=== PATIENT | female | born 1985 | race Two or more races ===

== ENCOUNTER 2023-03-29 09:58 | Outpatient (AMB) | payer OTHER, SELFPAY ==
--- NOTE | 2023-03-29 10:08 | HO.NEPHOV_ITS ---
HPI HPI Comments History of Present Illness Details I had the privilege of seeing Stephanie in follow-up of history proteinuria on a backdrop of lupus erythematosus. She is on mycophenolate. She has not been getting any cutaneous lesions now. She denies any urinary infections, fever, frothy urine, hematuria. She is not taking any excessive nonsteroidal inflammatories. She tries to maintain good hydration. She has no pedal edema. Her blood pressure has been at goal. [facility] Medical History (Updated 04/11/23 @ 21:56 by Merrick Meza MD) Lupus (systemic lupus erythematosus) Surgical History (Updated 03/29/23 @ 10:15 by Hillary De MA) History of tubal ligation History of surgery on lower extremity History of thyroid surgery Family History (Updated 03/29/23 @ 10:16 by Hillary De MA) Mother Diabetes Brother Diabetes Social History (Updated 03/29/23 @ 10:15 by Hillary De MA) Alcohol intake: never Patient Tobacco Use Status: Former Tobacco user Vital Signs 03/29/23 10:10 Height 5 ft 5 in Weight 199 lb BMI 33.1 BP 100/60 Blood Pressure Location Lt brachial Position Sitting Pulse 64 Pulse Source Pulse Oximeter Physical Exam Vital Signs: Last Vital Signs Pulse 64 03/29/23 10:10 BP 100/60 03/29/23 10:10 BMI result Body Mass Index 33.1 Const General: comfortable and no acute distress Orientation/consciousness: patient oriented x3 HEENT Head: Yes normocephalic Mouth: Normal oral and palatal mucosa present Eyes EOM: EOMs intact bilaterally Neck Neck: Yes supple Resp Auscultation: clear to auscultation bilaterally Cardio Jugular venous distension: no JVD Rate: regular rate GI Palpation (GI): Soft to palpation Auscultation: normal bowel sounds General: Yes no CVA tenderness Back/Spine/Pelvis Back: no CVA tenderness Skin General skin exam: no rashes or lesions noted Neuro General: patient oriented x3 and moves all extremities Extrem General: Yes no pedal edema Assessment & Plan Assessment & Plan (1) Lupus (systemic lupus erythematosus): Code(s): M32.9 - Systemic lupus erythematosus, unspecified Qualifiers: Systemic lupus erythematosus type: other Systemic lupus erythematosus organ involvement: other Qualified Code(s): M32.19 - Other organ or system involvement in systemic lupus erythematosus Zuleyka Brown has lupus and has been on CellCept. Her cutaneous lesions are gone now. 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 She does not have any edema or frothy urine. Her blood pressure is at goal. Her renal functions are stable. I ordered urine protein, complement level as well as anti DNA antibody. If she has protein and I will consider doing a renal biopsy and initiate her on SHAYAN- inhibitor. She has family history of lupus. I did not make any medication changes today. All questions were answered. Follow-up appointment given. Orders: Orders Complement C4 03/29/23 M32.9 - Systemic lupus erythematosus, unspecified Blood Urea Nitrogen 03/29/23 M32.9 - Systemic lupus erythematosus, unspecified Calcium 03/29/23 M32.9 - Systemic lupus erythematosus, unspecified UA and rflx microscopic 03/29/23 M32.9 - Systemic lupus erythematosus, unspecified Complement C3 03/29/23 M32.9 - Systemic lupus erythematosus, unspecified Anti DNA DS Antibody 03/29/23 M32.9 - Systemic lupus erythematosus, unspecified Electrolytes 03/29/23 M32.9 - Systemic lupus erythematosus, unspecified Creatinine 03/29/23 M32.9 - Systemic lupus erythematosus, unspecified Protein Creatinine Ratio, Ur 03/29/23 M32.9 - Systemic lupus erythematosus, unspecified Referrals Rheumatology Referral M32.9 - Systemic lupus erythematosus, unspecified Coding Level of Care Code Est Pt Level 3 (54963) Diagnoses Other systemic lupus erythematosus with other organ involvement M32.19 Systemic lupus erythematosus type: other Systemic lupus erythematosus organ involvement: other Results Reviewed Nephrology Results: Sodium 139 mmol/L (135-145) 03/29/23 Potassium 3.9 mmol/L (3.3-5.1) 03/29/23 Chloride 108 mmol/L (96-108) 03/29/23 Carbon Dioxide 24 mmol/L (22-29) 03/29/23 BUN 11 mg/dL (9-16) 03/29/23 Creatinine 0.73 mg/dL (0.5-1.4) 03/29/23 Calcium 9.3 mg/dL (8.4-10.2) 03/29/23 Urine Protein Negative mg/dL (Neg-Trace) 03/29/23 Urine Creatinine 113.99 mg/dL 03/29/23 Protein/Creatinin Ratio TNP 03/29/23
[2023-03-29 10:10] VITALS: BP 100/60; PULSE 64; BMI 33.1
== END 2023-03-29 10:46 | disposition home or self-care (01) ==
PROVIDERS: PCP Student in an Organized Health Care Education/Training Program; Visit Provider Internal Medicine Nephrology
DX: M32.19 Other organ or system involvement in systemic lupus erythematosus (principal)
CPT/HCPCS: 99213

== ENCOUNTER 2023-03-29 09:58 | Outpatient (REF) | payer OTHER, SELFPAY ==
[2023-03-29 12:52] LABS: Appearance Urine Clear; Color Urine Yellow; Glucose Urine UA Negative (Negative); Leukocyte Esterase Urine Negative (Negative); Nitrite Urine Negative (Negative); Specific Gravity - Urine 1.025 (1.005-1.025); Urine Blood Negative (Negative); Urine Ketones Negative (Negative); Urine Protein Negative (Neg-Trace)
[2023-03-29 13:36] LABS: Anion Gap 11 (12-20); Blood Urea Nitrogen 11 mg/dL (9-16); Calcium 9.3 mg/dL (8.4-10.2); Carbon Dioxide 24 mmol/L (22-29); Chloride 108 mmol/L (96-108); Estimated Glomerular Filt Rate > 60; Potassium 3.9 mmol/L (3.3-5.1); Sodium 139 mmol/L (135-145)
[2023-03-29 13:40] LABS: Creatinine Urine 113.99 mg/dL; Total Protein Urine Random < 7 mg/dL (<12)
[2023-04-01 12:24] LABS: Anti DNA DS Antibody 21 IU/mL
[2023-04-02 01:43] LABS: Complement C3 131 mg/dL (83-193)
== END 2023-03-29 09:59 | disposition home or self-care (01) ==
LOC: HO.HKASLDS 09:58
PROVIDERS: PCP Student in an Organized Health Care Education/Training Program; Visit Provider Internal Medicine Nephrology
DX: M32.19 Other organ or system involvement in systemic lupus erythematosus (principal); R80.9 Proteinuria, unspecified; Z79.899 Other long term (current) drug therapy
CPT/HCPCS: 36415; 80051; 81003; 82310; 82565; 82570; 84156; 84520; 86160; 86225; 99212

== ENCOUNTER 2023-04-29 10:48 | Outpatient (AMB) | payer OTHER, SELFPAY ==
--- NOTE | 2023-04-29 10:49 | MHC.OFFVIS ---
Intake Vital Signs 04/29/23 10:50 Height 5 ft 5 in Weight 199 lb 4.766 oz BMI 33.2 BP 100/70 Blood Pressure Location Lt brachial Position Sitting Pulse 65 Pulse Source Pulse Oximeter Temp 97.7 F Temp Source Skin Pulse Oximetry (%) 98 Oxygen Delivery Method Room Air Intake Visit Reasons: Systemic lupus erythematosus Intake Note: New patient, referred to us by Nephrology, presents today for +NIKKI, SLE, and fibromyalgia. Formerly seeing ATC, Dr. Scott. Last seen around December. Last eye exam March,. Personal Lines Sales Rep Required: Yes Personal Lines Sales Rep Language: Post Commander Name: Gurwinder [id number] Information Interpreted: clinical only Accompanied by: Self / Same As Patient Allergies No Known Allergies Allergy (Verified 04/29/23 10:58) HPI HPI Comments History of Present Illness Details Ms. Brown, 38 yoF referred to our office for management of SLE. She was being seen at [facility] - last seen 02/2023. She is currently on Cellcept and Hydroxychloroquine, Lyrica (By PCP) and Folic Acid. She sees Nephrology for history of proteinuria on a backdrop of lupus erythematosus. She is on mycophenolate. She has not been getting any cutaneous lesions now. She denies any urinary infections, fever, frothy urine, hematuria. She is not taking any excessive nonsteroidal inflammatories. She tries to maintain good hydration. She has no pedal edema. Diagnosed with Lupus , biopsy-proven, 3 years ago after seeing the clinical product specialist for hair loss and lesions to her face and scalp. She received scalp injections Face lesions related to lupus. Sun exposure - January, get rash on skin of feet and arms. Tries to avoid sun - because feet gets swollen; when lupus was not control/first diagnosed she had mouth ulcers, hair loss, biopsy of scalp, butterfly rash. For the last 3 years no evidence of lupus activity since starting CellCept and hydroxychloroquine.. Other issues include: She was diagnosed with fibromyalgia in [place] and receives Lyrica for the last 10 years. She sees a psychiatrist takes medication such as clonazepam, escitalopram, trazodone and zolpidem Neck Pain, Left Shoulder - sometimes feels swollen. She has received 2 trigger point steroid injection left trapezius - not effective per patient Left side/flank Pain, tenderness in pain for years MRI Neck 2018 - shows Arthritis. Ankle, Plantar, Left Knee pain - Left knee broke tibia - plates and screws (2021) She is currently followed by Nephrology, has seen pulmonology - last seen October 2022 chest x-ray done - denies SOB, Pleuritis; Cardiology - for ekg last see 2019 - did not follow-up as scheduled - denies carditis. Family history of lupus [facility] Medical History (Updated 04[facility]29/23 @ 13:[facility] Long-term use of immunosuppressant medication Fibromyalgia Lupus (systemic lupus erythematosus) Surgical History History of tubal ligation History of surgery on lower extremity History of thyroid surgery Family History (Updated 04/29/23 @ 10:59 by MAX Aguilera) Mother Diabetes Lupus Brother Diabetes Social History (Updated 04/29/23 @ 10:59 by MAX Aguilera) Household Members: Significant Other and Children Alcohol intake: never Patient Tobacco Use Status: Former Tobacco user Current occupational status: disabled Female Reproductive History Menstrual Total pregnancies: 3 Review of Systems Const All systems reviewed & are unremarkable except as noted in HPI and below Physical Exam Vital Signs: Last Vital Signs Temp 97.7 F 04/29/23 10:50 Pulse 65 04/29/23 10:50 BP 100/70 04/29/23 10:50 Pulse Ox 98 04/29/23 10:50 Oxygen Delivery Method Room Air 04/29/23 10:50 BMI result Body Mass Index 33.2 APPEARANCE: Patient in no acute distress EYES no redness, pupils equal and reactive to light, eyelids normal EARS:? External ear normal, canal clear and tympanic membrane normal. NOSE/SINUS:? Airflow through both nares, no nasal discharge, no bleeding THROAT:? Oral mucosa moist, no ulcerations NECK:? No thyromegaly or masses, no adenopathy, trachea midline. HEART:? Regular rhythm, S1-S2 heard, no murmurs, rubs or gallops. LUNG:? Clear to percussion and auscultation ABD:? Normal bowel sounds, no organomegaly, masses or tenderness. EXTREMITIES:? No edema, no calf tenderness, normal peripheral pulses. NEURO:? Oriented and alert x3.? No focal weakness.? Reflexes symmetric.? Gait normal. SKIN:? There are no skin lesions evident. No objective signs of Raynaud's phenomenon. JOINT EXAM: ?? Cervical Spine:.? Full range of motion without pain; no tenderness. Thoracic Spine:.? No scoliosis.? No tenderness on palpation. Lumbar Spine:.? Alignment normal.? Full range of motion without pain, no tenderness. Chest Wall:.? No tenderness, swelling, increased warmth or erythema. Hands:.? Normal pain-free range of motion without tenderness, swelling, increased warmth or erythema. 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 Wrists:.? Normal pain-free range of motion without tenderness, swelling, increased warmth or erythema. Elbows:. Normal pain-free range of motion without tenderness, swelling, increased warmth or erythema. Shoulders:.?? Full range of motion without pain. No tenderness, weakness, swelling, increased warmth or erythema. Tenderness across shoulders and neck Hips:.? Full range of motion without pain. Hip bursa:.? tenderness L>R Knees:.?? Normal pain-free range of motion without tenderness, swelling, increased warmth or erythema.? There is no effusion or crepitation Ankles:.? Normal pain-free range of motion without tenderness, swelling, increased warmth or erythema. Feet:.? Normal pain-free range of motion without tenderness, swelling, increased warmth or erythema. Tender points:? tenderness to digital palpation at the occiput, trapezius, lateral epicondyle, knees, greater trochanter and gluteal area bilaterally. L>R ? Assessment & Plan Assessment & Plan (1) Lupus (systemic lupus erythematosus): Comment: On Cellcept and HCQ over 10 years Code(s): M32.9 - Systemic lupus erythematosus, unspecified Qualifiers: Systemic lupus erythematosus organ involvement: other Systemic lupus erythematosus type: other Qualified Code(s): M32.19 - Other organ or system involvement in systemic lupus erythematosus (2) Fibromyalgia: Code(s): M79.7 - Fibromyalgia (3) Long-term use of immunosuppressant medication: Code(s): Z79.60 - snf (current) use of unspecified immunomodulators and immunosuppressants Plan #SLE: Ms. Brown 38-year-old female here for the management of her lupus and fibromyalgia. It appears her lupus is currently well managed on CellCept and hydroxychloroquine therefore it is appropriate to continue with these medications. I will also obtain records from past learning developer to will see what her serology was for diagnosis. For next visit will check labs and urine to assess for SLE activity. Patient will continue to follow up with Nephrology. She had mild proteinuria which seem to have resolved since 03/29/2023. Will send for records from Sign Shop Supervisor and former Fruit Sorter. #Fibromyalgia: Patient has multiple tender points on exam. I Discussed at length with patient the concept of fibromyalgia. She will continue to take Lyrica that has helped with overall body pain. She will continue to meet with her psychiatrist. Patient also says she likes to stay active. I encouraged patient to make sure she is getting adequate sleep and to seek ways to manage stress effectively. We discussed that her pain levels will very but it will feel like the pain is always there. We discussed light activities that the patient can do. #Fpc Use of Immunosuppressant: I will obtain labs to check CBC and liver enzymes for next visit. She recently saw the pianos and organs salesperson March 2023 with no concerns for her eyes on hydroxychloroquine. We discussed the side effects of CellCept and hydroxychloroquine to include but not limited to liver toxicity, blood dyscrasias and risk to and fetus. Patient will maintain control methods. I have spent 50 minutes reviewing chart and historical data, evaluating patient, and documenting. Orders: Orders Complement C3 4 Months M3. - Systemic lupus erythematosus, unspecified UA w Microscopic 4 Months . - Systemic lupus erythematosus, unspecified Complete Blood Count Auto Diff 4 Months . - Systemic lupus erythematosus, unspecified, Z79.899 - Other senior care (current) drug therapy Complement C4 4 Months M32. - Systemic lupus erythematosus, unspecified C Reactive Protein 4 Months M32.9 - Systemic lupus erythematosus, unspecified Erythrocyte Sedimentation Rate 4 Months M32.9 - Systemic lupus erythematosus, unspecified Comprehensive Met. Panel 4 Months M32.9 - Systemic lupus erythematosus, unspecified Medications: New pregabalin 150 mg PO BID 90 caps 1RF Coding Level of Care Code New Pt Level 4 (92004) Diagnoses Other systemic lupus erythematosus with other organ involvement M32.19 Systemic lupus erythematosus organ involvement: other Systemic lupus erythematosus type: other Fibromyalgia M79.7 Long-term use of immunosuppressant medication Z79.60
[2023-04-29 10:50] VITALS: BP 100/70; PULSE 65; TEMP 36.5; O2SAT 98; BMI 33.2
== END 2023-04-29 12:05 | disposition home or self-care (01) ==
PROVIDERS: PCP Student in an Organized Health Care Education/Training Program; Visit Provider Nurse Practitioner Family
DX: M32.19 Other organ or system involvement in systemic lupus erythematosus (principal); M79.7 Fibromyalgia; Z79.60 Long term (current) use of unspecified immunomodulators and immunosuppressants
CPT/HCPCS: 99204

== ENCOUNTER → 2023-04-29 10:48 | Outpatient (BNVA) | payer OTHER, SELFPAY | PROVIDERS: PCP Student in an Organized Health Care Education/Training Program; Visit Provider Nurse Practitioner Family | DX: M32.19 Other organ or system involvement in systemic lupus erythematosus (principal); M79.7 Fibromyalgia; Z79.60 Long term (current) use of unspecified immunomodulators and immunosuppressants | CPT/HCPCS: 99202 ==

== ENCOUNTER 2023-05-17 09:36 | Outpatient (AMB) | payer OTHER, SELFPAY ==
--- NOTE | 2023-05-17 09:50 | HO.NEPHOV ---
HPI HPI Comments History of Present Illness Details had the privilege of seeing Stephanie in follow-up of history proteinuria on a backdrop of lupus erythematosus. She is on mycophenolate. She has not been getting any cutaneous lesions now. She denies any urinary infections, fever, frothy urine, hematuria. She is not taking any excessive nonsteroidal inflammatories. She tries to maintain good hydration. She has no pedal edema. Her blood pressure has been at goal. [facility] Medical History (Updated 04/29/23 @ 13:37 by [facility] Long-term use of immunosuppressant medication Fibromyalgia Lupus (systemic lupus erythematosus) Surgical History History of tubal ligation History of surgery on lower extremity History of thyroid surgery Family History Mother Diabetes Lupus Brother Diabetes Social History Household Members: Significant Other and Children Alcohol intake: never Patient Tobacco Use Status: Former Tobacco user Current occupational status: disabled Vital Signs 05/17/23 09:51 Height 5 ft 5 in Weight 194 lb 4 oz BMI 32.3 BP 100/70 Blood Pressure Location Lt brachial Position Sitting Pulse 54 Pulse Source Pulse Oximeter Pulse Oximetry (%) 94 Oxygen Delivery Method Room Air Physical Exam Vital Signs: Last Vital Signs Pulse 54 05/17/23 09:51 BP 100/70 05/17/23 09:51 Pulse Ox 94 05/17/23 09:51 Oxygen Delivery Method Room Air 05/17/23 09:51 BMI result Body Mass Index 32.3 Const General: comfortable and no acute distress Orientation/consciousness: patient oriented x3 HEENT Head: Yes normocephalic Mouth: Normal oral and palatal mucosa present Eyes EOM: EOMs intact bilaterally Neck Neck: Yes supple Resp Auscultation: clear to auscultation bilaterally Cardio Jugular venous distension: no JVD Rate: regular rate GI Palpation (GI): Soft to palpation Auscultation: normal bowel sounds General: Yes no CVA tenderness Back/Spine/Pelvis Back: no CVA tenderness Skin General skin exam: no rashes or lesions noted Neuro General: patient oriented x3 and moves all extremities Extrem General: Yes no pedal edema Assessment & Plan Assessment & Plan (1) Lupus (systemic lupus erythematosus): Comment: On Cellcept and HCQ over 10 years Code(s): M32.9 - Systemic lupus erythematosus, unspecified Qualifiers: Systemic lupus erythematosus type: other Systemic lupus erythematosus organ involvement: other Qualified Code(s): M32.19 - Other organ or system involvement in systemic lupus erythematosus (2) Long-term use of immunosuppressant medication: Code(s): Z79.60 - [facility] (current) use of unspecified immunomodulators and immunosuppressants Zuleyka Brown has lupus and has been on CellCept. Her cutaneous lesions are gone now. She does not have any edema or frothy urine. Her blood pressure is at goal. Her renal functions are stable. Her urine protein, complement level were normal. Her anti DNA antibody was 21. If she develop proteinuria, I will consider doing a renal biopsy and initiate her on SHAYAN-inhibitor. She has family history of lupus. I did not make any medication changes today. All questions were answered. Follow-up appointment given Coding Level of Care Code Est Pt Level 3 (05262) Diagnoses Other systemic lupus erythematosus with other organ involvement M32.19 Systemic lupus erythematosus type: other Systemic lupus erythematosus organ involvement: other Long-term use of immunosuppressant medication Z79.60 Results Reviewed Nephrology Results: Sodium 139 mmol/L (135-145) 03/29/23 Potassium 3.9 mmol/L (3.3-5.1) 03/29/23 Chloride 108 mmol/L (96-108) 03/29/23 Carbon Dioxide 24 mmol/L (22-29) 03/29/23 BUN 11 mg/dL (9-16) 03/29/23 Creatinine 0.73 mg/dL (0.5-1.4) 03/29/23 Calcium 9.3 mg/dL (8.4-10.2) 03/29/23 Urine Protein Negative mg/dL (Neg-Trace) 03/29/23 Urine Creatinine 113.99 mg/dL 03/29/23 Protein/Creatinin Ratio TNP 03/29/23
[2023-05-17 09:51] VITALS: BP 100/70; PULSE 54; O2SAT 94; BMI 32.3
== END 2023-05-17 10:12 | disposition home or self-care (01) ==
PROVIDERS: PCP Student in an Organized Health Care Education/Training Program; Visit Provider Internal Medicine Nephrology
DX: M32.19 Other organ or system involvement in systemic lupus erythematosus (principal); Z79.60 Long term (current) use of unspecified immunomodulators and immunosuppressants
CPT/HCPCS: 99213

== ENCOUNTER → 2023-05-17 09:36 | Outpatient (BNVA) | payer OTHER, SELFPAY | PROVIDERS: PCP Student in an Organized Health Care Education/Training Program; Visit Provider Internal Medicine Nephrology | DX: M32.19 Other organ or system involvement in systemic lupus erythematosus (principal); Z79.60 Long term (current) use of unspecified immunomodulators and immunosuppressants | CPT/HCPCS: 99212 ==

== ENCOUNTER 2023-08-29 12:11 | Outpatient (REF) | payer OTHER, SELFPAY ==
[2023-08-29 12:48] LABS: MANUAL DIFF FLAG NO
[2023-08-29 14:24] LABS: Basophils Absolute Auto 0.1 X10*3/uL (0.0-0.2); Eosinophils Absolute Auto 0.1 X10*3/uL (0.0-0.4); Eosinophils Percent Auto 1.8 % (0-4); Hematocrit 42.5 % (37.0-47.0); Hemoglobin 13.8 g/dl (12.0-16.0); Imm Gran Abs Auto 0.03 X10*3/uL (0.00-0.03); Imm Gran Pct Auto 0.4 % (0.0-0.4); Lymphocytes Absolute Auto 2.7 X10*3/uL (1.2-4.9); Mean Corpuscular HGB Conc 32.5 g/dl (31.0-35.0); Mean Corpuscular Hemoglobin 27.7 pg (27.0-33.0); Mean Corpuscular Volume 85.2 fL (80.0-98.0); Mean Platelet Volume 11.1 fL (9.4-12.3); Monocytes Absolute Auto 0.8 X10*3/uL (0.1-1.2); Neutrophils Absolute Auto 3.2 x10*3/uL (2.0-8.3); Neutrophils Percent Auto 46.8 % (45-73); Platelet Count 261 X10*3/uL (160-400); Red Blood Count 4.99 X10*6/uL (4.20-5.50); Red Cell Distribution Width 13.2 % (11.0-16.0); White Blood Count 6.8 X10*3/uL (4.8-10.8)
[2023-08-29 14:25] LABS: Appearance Urine Cloudy; Color Urine Yellow; Glucose Urine UA Negative (Negative); Leukocyte Esterase Urine Negative (Negative); Nitrite Urine Negative (Negative); PH 6.5 (5.0-9.0); UMIC TRIGGER UA YES; Urine Blood Trace (Negative); Urine Ketones Negative (Negative); Urine Protein Negative (Neg-Trace)
[2023-08-29 14:30] LABS: Bacteria Urine 1+ (None Seen); Hyaline Casts Urine 0-2 /LPF (0-2); RBC Urine 0-2 /HPF (0-2); WBC Urine 0-5 /HPF (0-5)
[2023-08-29 14:54] LABS: Alanine Aminotransferase 14 U/L (0-31); Albumin Level 4.1 g/dL (3.5-5.0); Alkaline Phosphatase 66 U/L (39-117); Anion Gap 12 (12-20); Aspartate Amino Transferase 19 U/L (5-31); Bilirubin Total 0.2 mg/dL (0.0-1.0); Blood Urea Nitrogen 11 mg/dL (9-16); C Reactive Protein 0.47 mg/dL (< or = 0.50); Calcium 9.6 mg/dL (8.4-10.2); Carbon Dioxide 25 mmol/L (22-29); Chloride 107 mmol/L (96-108); Estimated Glomerular Filt Rate > 60; Glucose Random 75 mg/dL (60-115); Potassium 3.7 mmol/L (3.3-5.1); Sodium 140 mmol/L (135-145); Total Protein 7.8 g/dL (6.5-8.0)
[2023-08-29 15:18] LABS: Erythrocyte Sedimentation Rate 14 MM/HR (0-20)
[2023-08-31 13:28] LABS: Complement C3 86 mg/dL (83-193)
== END 2023-08-29 12:12 | disposition home or self-care (01) ==
LOC: HO.LAB 12:11
PROVIDERS: PCP Student in an Organized Health Care Education/Training Program; Visit Provider Nurse Practitioner Family
DX: M32.9 Systemic lupus erythematosus, unspecified (principal); Z79.899 Other long term (current) drug therapy
CPT/HCPCS: 36415; 80053; 81001; 85025; 85652; 86140; 86160

== ENCOUNTER 2023-09-01 15:29 | Outpatient (AMB) | payer OTHER, SELFPAY ==
--- NOTE | 2023-09-01 15:34 | A.OFFVIS_ITS ---
Vital Signs 09/01/23 15:41 Height 5 ft 5 in Weight 194 lb 14.218 oz BMI 32.4 BP 110/78 Blood Pressure Location Rt brachial Position Sitting Pulse 79 Pulse Source Pulse Oximeter Pulse Oximetry (%) 99 Oxygen Delivery Method Room Air Intake Visit Reasons: SLE/CM Intake Note: Patient last seen 04/29/23, presents today for follow up and test results. Vocational Director Required: No Accompanied by: Self / Same As Patient Allergies No Known Allergies Allergy (Verified 09/01/23 15:40) HPI Comments Details: Ms. Brown, 38 yoF returns for follow-up of SLE and FM. She is currently on Cellcept and Hydroxychloroquine, Lyrica (By PCP) and Folic Acid. She sees Nephrology for history of proteinuria on a backdrop of lupus erythematosus. She remains without cutaneous lesions since last visit; respiratory care technician mouth sores, fevers. She denies any urinary infections, fever, frothy urine, hematuria. She is not taking any excessive nonsteroidal inflammatories. She has stopped that trazadone because she wants to lose weight. Since then she has been told that she is snoring a lot. She does not feel rested when she wakes up in the mornings. Initial [id number]/29/2023: Florence Hudson yoF referred to our office for management of SLE. She was being seen at the [facility] - last seen 02/2023. She is currently on Cellcept and Hydroxychloroquine, Lyrica (By PCP) and Folic Acid. She sees Nephrology for history of proteinuria on a backdrop of lupus erythematosus. She is on mycophenolate. She has not been getting any cutaneous lesions now. She denies any urinary infections, fever, frothy urine, hematuria. She is not takin g any excessive nonsteroidal inflammatories. She tries to maintain good hydration. She has no pedal edema. : Diagnosed with Lupus , biopsy-proven, 3 years ago after seeing the gravure press operator for hair loss and lesions to her face and scalp. She received scalp injections Face lesions related to lupus. Sun exposure - January, get rash on skin of feet and arms. Tries to avoid sun - because feet gets swollen; when lupus was not control/first diagnosed she had mouth ulcers, hair loss, biopsy of scalp, butterfly rash. For the last 3 years no evidence of lupus activity since starting CellCept and hydroxychloroquine.. Other issues include: She was diagnosed with fibromyalgia in [place] and receives Lyrica for the last 10 years. She sees a psychiatrist takes medication such as clonazepam, escitalopram, trazodone and zolpidem Neck Pain, Left Shoulder - sometimes feels swollen. She has received 2 trigger point steroid injection left trapezius - not effective per patient Left side/flank Pain, tenderness in pain for years MRI Neck 2018 - shows Arthritis. Ankle, Plantar, Left Knee pain - Left knee broke tibia - plates and screws (2021) She is currently followed by Nephrology, has seen pulmonology - last seen October 2022 chest x-ray done - denies SOB, Pleuritis; Cardiology - for ekg last see 2019 - did not follow-up as scheduled - denies carditis. Family history of lupus [facility] Medical History (Updated 04/29/23 @ 13:37 by ANITA Osullivan-) Long-term use of immunosuppressant medication Fibromyalgia Lupus (systemic lupus erythematosus) Surgical History History of tubal ligation History of surgery on lower extremity History of thyroid surgery Family History Mother Diabetes Lupus Brother Diabetes Social History Household Members: Significant Other and Children Alcohol intake: never Patient Tobacco Use Status: Former Tobacco user Current occupational status: disabled Review of Systems Const All systems reviewed & are unremarkable except as noted in HPI and below Physical Exam Vital Signs: Last Vital Signs Pulse 79 09/01/23 15:41 BP 110/78 09/01/23 15:41 Pulse Ox 99 09/01/23 15:41 Oxygen Delivery Method Room Air 09/01/23 15:41 BMI result Body Mass Index 32.4 APPEARANCE: Patient in no acute distress EYES no redness, eyelids normal EARS:? External ear normal THROAT:? Oral mucosa moist, no ulcerations NECK:? No thyromegaly or masses, no adenopathy, trachea midline. HEART:? Regular rhythm, S1-S2 heard, no murmurs, rubs or gallops. LUNG:? Clear to percussion and auscultation EXTREMITIES:? No edema, no calf tenderness, normal peripheral pulses. NEURO:? Oriented and alert x3.? No focal weakness.? Reflexes symmetric.? Gait normal. SKIN:? There are no skin lesions evident. No objective signs of Raynaud's phenomenon. JOINT EXAM: Hands:.? Normal pain-free range of motion without tenderness, swelling, increased warmth or erythema. Able to make a full fist and has a good vehicle dismantler strength. Wrists:.? Normal pain-free range of motion without tenderness, swelling, increased warmth or erythema. Elbows:. Normal pain-free range of motion without tenderness, swelling, increased warmth or erythema. Shoulders:.?? Full range of motion without pain. No tenderness, weakness, swelling, increased warmth or erythema. Tenderness across shoulders and neck Hips:.? Full range of motion without pain. Hip bursa:.? tenderness L>R Knees:.?? Normal pain-free range of motion without tenderness, swelling, increased warmth or erythema.? There is no effusion or crepitation Ankles:.? Normal pain-free range of motion without tenderness, swelling, increased warmth or erythema. Feet:.? Normal pain-free range of motion without tenderness, swelling, increased warmth or erythema. Tender points:? tenderness to digital palpation at the occiput, trapezius, lateral epicondyle, knees, greater trochanter and gluteal area bilaterally. L>R ? Results Reviewed Results Reviewed: Laboratory Tests 08/29/23 08/29/23 12:17 12:47 WBC 6.8 RBC 4.99 Hgb 13.8 Hct 42.5 Creatinine 0.75 C-Reactive Protein 0.47 Urine Blood Trace H Assessment & Plan Assessment & Plan (1) Lupus (systemic lupus erythematosus): Comment: On Cellcept and HCQ over 10 years Code(s): M32.9 - Systemic lupus erythematosus, unspecified Category: Medical Qualifiers: Systemic lupus erythematosus organ involvement: other Systemic lupus erythematosus type: other Qualified Code(s): M32.19 - Other organ or system involvement in systemic lupus erythematosus (2) Fibromyalgia: Code(s): M79.7 - Fibromyalgia Category: Medical (3) Long-term use of immunosuppressant medication: Code(s): Z79.60 - chemical plant technical director (current) use of unspecified immunomodulators and immunosuppressants Category: Medical Plan #SLE: Ms. Brown 38-year-old female here for follow-up of her lupus and fibromyalgia. It appears her lupus is currently well managed on CellCept 500mg BID and hydroxychloroquine 200 mg BID therefore it is appropriate to continue with these medications. Records from past accounting director was reviewed without adverse findings that would change the course of treatment. Her current labs were not significant for lupus activity C4 was borderline on the low end at 14(15). For next visit will check labs and urine to assess for SLE activity. Patient will continue to follow up with Nephrology. She had mild proteinuria which seem to have resolved since 03/29/2023. #Fibromyalgia: Patient has multiple tender points on exam. I Discussed at length with patient the concept of fibromyalgia. She will continue to take Lyrica that has helped with overall body pain. She will continue to meet with her psychiatrist. Patient also says she likes to stay active. I encouraged patient to make sure she is getting adequate sleep and to seek ways to manage stress effectively. We discussed that her pain levels will very but it will feel like the pain is always there. We discussed light activities that the patient can do. #Desk Reporter Use of Immunosuppressant: I will obtain labs to check CBC and liver enzymes, lupus lab monitoring for next visit. She recently saw the emulsion coater March 2023 with no concerns for her eyes on hydroxychloroquine. We discussed the side effects of CellCept and hydroxychloroquine to include but not limited to liver toxicity, blood dyscrasias and risk to and fetus. Patient will maintain control methods. I have spent 20 minutes reviewing chart and historical data, evaluating patient, and documenting. Orders: Orders Complement C4 4 Months Z79.60 - nursing home (current) use of unspecified immunomodulators and immunosuppressants, M32.19 - Other organ or system involvement in systemic lupus erythematosus C Reactive Protein 4 Months Z79.60 - nursing home (current) use of unspecified immunomodulators and immunosuppressants, M32.19 - Other organ or system involvement in systemic lupus erythematosus Complete Blood Count Auto Diff 4 Months Z79.60 - chemical plant technical director (current) use of unspecified immunomodulators and immunosuppressants, M32.19 - Other organ or system involvement in systemic lupus erythematosus UA w Microscopic 4 Months Z79.60 - nursing home (current) use of unspecified immunomodulators and immunosuppressants, M32.19 - Other organ or system involvement in systemic lupus erythematosus Erythrocyte Sedimentation Rate 4 Months Z79.60 - chemical plant technical director (current) use of unspecified immunomodulators and immunosuppressants, M32.19 - Other organ or system involvement in systemic lupus erythematosus Complement C3 4 Months Z79.60 - chemical plant technical director (current) use of unspecified immunomodulators and immunosuppressants, M32.19 - Other organ or system involvement in systemic lupus erythematosus Anti DNA DS Antibody 4 Months Z79.60 - nursing home (current) use of unspecified immunomodulators and immunosuppressants, M32.19 - Other organ or system involvement in systemic lupus erythematosus Protein Creatinine Ratio, Ur 4 Months Z79.60 - nursing home (current) use of unspecified immunomodulators and immunosuppressants, M32.19 - Other organ or system involvement in systemic lupus erythematosus Comprehensive Met. Panel 4 Months Z79.60 - chemical plant technical director (current) use of unspecified immunomodulators and immunosuppressants, M32.19 - Other organ or system involvement in systemic lupus erythematosus Medications: New hydroxychloroquine 200 mg PO BID 180 tabs 1RF M32.19 - Other organ or system involvement in systemic lupus erythematosus folic acid 1 mg PO DAILY 90 tabs 2RF Z79.60 - chemical plant technical director (current) use of unspecified immunomodulators and immunosuppressants Coding Level of Care Code Est Pt Level 4 (91399) Complex EM visit Add On [id number] Diagnoses Other systemic lupus erythematosus with other organ involvement M32.19 Systemic lupus erythematosus organ involvement: other Systemic lupus erythematosus type: other Fibromyalgia M79.7 Long-term use of immunosuppressant medication Z79.60
[2023-09-01 15:41] VITALS: BP 110/78; PULSE 79; O2SAT 99; BMI 32.4
== END 2023-09-01 16:11 | disposition home or self-care (01) ==
PROVIDERS: PCP Student in an Organized Health Care Education/Training Program; Visit Provider Nurse Practitioner Family
DX: M32.19 Other organ or system involvement in systemic lupus erythematosus (principal); M79.7 Fibromyalgia; Z79.60 Long term (current) use of unspecified immunomodulators and immunosuppressants
CPT/HCPCS: 99214; G2211

== ENCOUNTER → 2023-09-01 15:29 | Outpatient (BNVA) | payer OTHER, SELFPAY | PROVIDERS: PCP Student in an Organized Health Care Education/Training Program; Visit Provider Nurse Practitioner Family | DX: M32.19 Other organ or system involvement in systemic lupus erythematosus (principal); M79.7 Fibromyalgia; Z79.60 Long term (current) use of unspecified immunomodulators and immunosuppressants | CPT/HCPCS: 99212 ==

== ENCOUNTER 2023-11-17 14:42 | Outpatient (AMB) | payer OTHER, SELFPAY ==
--- NOTE | 2023-11-17 15:01 | HO.NEPHOV ---
Vital Signs 11/17/23 15:02 Height 5 ft 5 in Weight 198 lb 2 oz BMI 33.0 BP 112/80 Blood Pressure Location Lt brachial Position Sitting Intake Visit Reasons: Lupus/ 6 MO FU/ [facility] Manager Required: No Accompanied by: Self / Same As Patient Allergies No Known Allergies Allergy (Verified 11/17/23 15:04) HPI Comments Details: I had the privilege of seeing Stephanie in follow-up of history proteinuria on a backdrop of lupus erythematosus. She is on mycophenolate. She has not been getting any cutaneous lesions now. She denies any urinary infections, fever, frothy urine, hematuria. She is not taking any excessive nonsteroidal inflammatories. She tries to maintain good hydration. She has no pedal edema. Her blood pressure has been at goal. [facility] Medical History (Updated 04/29/23 @ 13:37 by Kiara Reyez [facility]) Long-term use of immunosuppressant medication Fibromyalgia Lupus (systemic lupus erythematosus) Surgical History History of tubal ligation History of surgery on lower extremity History of thyroid surgery Family History Mother Diabetes Lupus Brother Diabetes Social History Household Members: Significant Other and Children Alcohol intake: never Patient Tobacco Use Status: Former Tobacco user Current occupational status: disabled Review of Systems Const All systems reviewed & are unremarkable except as noted in HPI and below Physical Exam Vital Signs: Last Vital Signs BP 112/80 11/17/23 15:02 BMI result Body Mass Index 33.0 Const General: comfortable and no acute distress Orientation/consciousness: patient oriented x3 HEENT Head: Yes normocephalic Mouth: Normal oral and palatal mucosa present Eyes EOM: EOMs intact bilaterally Neck Neck: Yes supple Resp Auscultation: clear to auscultation bilaterally Cardio Jugular venous distension: no JVD Rate: regular rate GI Palpation (GI): Soft to palpation Auscultation: normal bowel sounds General: Yes no CVA tenderness Back/Spine/Pelvis Back: no CVA tenderness Skin General skin exam: no rashes or lesions noted Neuro General: patient oriented x3 and moves all extremities Extrem General: Yes no pedal edema Results Reviewed Nephrology Results: Hgb 13.8 g/dl (12.0-16.0) 08/29/23 WBC 6.8 X10*3/uL (4.8-10.8) 08/29/23 Plt Count 261 X10*3/uL (160-400) 08/29/23 Sodium 140 mmol/L (135-145) 08/29/23 Potassium 3.7 mmol/L (3.3-5.1) 08/29/23 Chloride 107 mmol/L (96-108) 08/29/23 Carbon Dioxide 25 mmol/L (22-29) 08/29/23 BUN 11 mg/dL (9-16) 08/29/23 Creatinine 0.75 mg/dL (0.5-1.4) 08/29/23 Calcium 9.6 mg/dL (8.4-10.2) 08/29/23 Urine Protein Negative mg/dL (Neg-Trace) 08/29/23 Urine Creatinine 113.99 mg/dL 03/29/23 Protein/Creatinin Ratio TNP 03/29/23 Assessment & Plan Assessment & Plan (1) Lupus (systemic lupus erythematosus): Comment: On Cellcept and HCQ over 10 years Code(s): M32.9 - Systemic lupus erythematosus, unspecified Category: Medical Qualifiers: Systemic lupus erythematosus type: other Systemic lupus erythematosus organ involvement: other Qualified Code(s): M32.19 - Other organ or system involvement in systemic lupus erythematosus (2) Long-term use of immunosuppressant medication: Code(s): Z79.60 - long-term (current) use of unspecified immunomodulators and immunosuppressants Category: Medical Plan Stephanie has lupus and has been on CellCept. Her cutaneous lesions are gone now. She does not have any edema or frothy urine. Her blood pressure is at goal. Her renal functions are stable. Her urine protein, complement level were normal. Her anti DNA antibody was 21. If she develop proteinuria, I will consider doing a renal biopsy and initiate her on SHAYAN-inhibitor. She has family history of lupus ( Mom had lupus-) . I did not make any medication changes today. All questions were answered. Follow-up appointment given Orders: Orders Protein Creatinine Ratio, Ur Today M32.19 - Other organ or system involvement in systemic lupus erythematosus, Z79.60 - remote computer terminal operator (current) use of unspecified immunomodulators and immunosuppressants Coding Level of Care Code Est Pt Level 4 (93875) Diagnoses Other systemic lupus erythematosus with other organ involvement M32.19 Systemic lupus erythematosus type: other Systemic lupus erythematosus organ involvement: other Long-term use of immunosuppressant medication Z79.60
[2023-11-17 15:02] VITALS: BP 112/80; BMI 33.0
== END 2023-11-17 15:34 | disposition home or self-care (01) ==
PROVIDERS: PCP Student in an Organized Health Care Education/Training Program; Visit Provider Internal Medicine Nephrology
DX: M32.19 Other organ or system involvement in systemic lupus erythematosus (principal); Z79.60 Long term (current) use of unspecified immunomodulators and immunosuppressants
CPT/HCPCS: 99214

== ENCOUNTER → 2023-11-17 14:42 | Outpatient (BNVA) | payer OTHER, SELFPAY | PROVIDERS: PCP Student in an Organized Health Care Education/Training Program; Visit Provider Internal Medicine Nephrology | DX: M32.19 Other organ or system involvement in systemic lupus erythematosus (principal); M79.7 Fibromyalgia; R80.9 Proteinuria, unspecified; Z79.60 Long term (current) use of unspecified immunomodulators and immunosuppressants | CPT/HCPCS: 99212 ==

== ENCOUNTER 2023-12-30 09:13 | Outpatient (REF) | payer OTHER, SELFPAY ==
[2023-12-30 09:26] LABS: MANUAL DIFF FLAG NO
[2023-12-30 09:53] LABS: Basophils Absolute Auto 0.1 X10*3/uL (0.0-0.2); Basophils Percent Auto 1.1 % (0-2); Eosinophils Absolute Auto 0.1 X10*3/uL (0.0-0.4); Eosinophils Percent Auto 1.8 % (0-4); Hematocrit 43.9 % (37.0-47.0); Imm Gran Abs Auto 0.02 X10*3/uL (0.00-0.03); Imm Gran Pct Auto 0.5 % (0.0-0.4); Lymphocytes Absolute Auto 1.9 X10*3/uL (1.2-4.9); Mean Corpuscular HGB Conc 31.9 g/dl (31.0-35.0); Mean Corpuscular Hemoglobin 27.4 pg (27.0-33.0); Mean Corpuscular Volume 85.9 fL (80.0-98.0); Mean Platelet Volume 10.2 fL (9.4-12.3); Monocytes Absolute Auto 0.5 X10*3/uL (0.1-1.2); Monocytes Percent Auto 10.8 % (2-11); Neutrophils Absolute Auto 1.9 x10*3/uL (2.0-8.3); Neutrophils Percent Auto 43.8 % (45-73); Platelet Count 245 X10*3/uL (160-400); Red Blood Count 5.11 X10*6/uL (4.20-5.50); Red Cell Distribution Width 13.2 % (11.0-16.0); White Blood Count 4.4 X10*3/uL (4.8-10.8)
[2023-12-30 10:13] LABS: Appearance Urine Clear; Color Urine Yellow; Glucose Urine UA Negative (Negative); Leukocyte Esterase Urine Trace (Negative); Nitrite Urine Negative (Negative); PH 6.5 (5.0-9.0); Specific Gravity - Urine <= 1.005 (1.005-1.025); UMIC TRIGGER UA YES; Urine Blood Large (3+) (Negative); Urine Ketones Negative (Negative); Urine Protein Negative (Neg-Trace)
[2023-12-30 10:33] LABS: Bacteria Urine None Seen (None Seen); Hyaline Casts Urine 0-2 /LPF (0-2); RBC Urine 0-2 /HPF (0-2); WBC Urine 0-5 /HPF (0-5)
[2023-12-30 10:35] LABS: Erythrocyte Sedimentation Rate 12 MM/HR (0-20)
[2023-12-30 11:02] LABS: Alanine Aminotransferase 15 U/L (0-31); Albumin Level 4.1 g/dL (3.5-5.0); Alkaline Phosphatase 64 U/L (39-117); Anion Gap 10 (12-20); Aspartate Amino Transferase 16 U/L (5-31); Bilirubin Total 0.3 mg/dL (0.0-1.0); Blood Urea Nitrogen 9 mg/dL (9-16); C Reactive Protein 0.38 mg/dL (< or = 0.50); Calcium 9.3 mg/dL (8.4-10.2); Carbon Dioxide 27 mmol/L (22-29); Chloride 106 mmol/L (96-108); Estimated Glomerular Filt Rate > 60; Glucose Random 94 mg/dL (60-115); Potassium 3.7 mmol/L (3.3-5.1); Sodium 139 mmol/L (135-145); Total Protein 7.6 g/dL (6.5-8.0)
[2023-12-30 11:08] LABS: Creatinine Urine 17.67 mg/dL; Total Protein Urine Random < 7 mg/dL (<12)
[2024-01-02 10:13] LABS: Complement C3 78 mg/dL (83-193)
[2024-01-02 16:37] LABS: Anti DNA DS Antibody 18 IU/mL
== END 2023-12-30 09:14 | disposition home or self-care (01) ==
LOC: HO.LAB 09:13
PROVIDERS: PCP Student in an Organized Health Care Education/Training Program; Visit Provider Nurse Practitioner Family
DX: M32.19 Other organ or system involvement in systemic lupus erythematosus (principal); Z79.60 Long term (current) use of unspecified immunomodulators and immunosuppressants
CPT/HCPCS: 36415; 80053; 81001; 82570; 84156; 85025; 85652; 86140; 86160; 86225

== ENCOUNTER 2024-01-03 15:36 | Outpatient (AMB) | payer OTHER, SELFPAY ==
--- NOTE | 2024-01-03 15:41 | A.OFFVIS_ITS ---
Vital Signs 01/03/24 15:43 Height 5 ft 5 in Weight 202 lb 2.622 oz BMI 33.6 BP 112/78 Blood Pressure Location Rt brachial Position Sitting Pulse 71 Pulse Source Pulse Oximeter Pulse Oximetry (%) 98 Oxygen Delivery Method Room Air Intake Visit Reasons: SLE Intake Note: Patient presents for SLE. Patient refused motor vehicle parts interpreter services today. Frame Maker Required: No Frame Maker Services: Frame Maker Offered & Declined Information Interpreted: non-clinical & clinical Allergies No Known Allergies Allergy (Verified 01/03/24 15:45) Medication List - Last Reconciled 01/03/24 by Mechelle Delgado MD albuterol sulfate 90 mcg/actuation (Ventolin HFA) 2 puffs inhalation Q4-6H PRN ascorbic acid (vitamin C) (Vitamin C) PO clonazepam 1 mg PO BID PRN escitalopram oxalate 10 mg PO DAILY fluticasone propionate 110 mcg/actuation (Flovent HFA) 2 puffs inhalation BID folic acid 1 mg PO DAILY hydroxychloroquine 200 mg PO BID mycophenolate mofetil 500 mg PO BID pregabalin 150 mg PO BID zolpidem 10 mg PO BEDTIME PRN HPI Comments Details: This is a 38-year-old female with lupus who presents for follow-up. She states that she has noticed mild scalp pain in her crown area she also noticed that her hairs in this area appear as if they have been cut in half. Symptoms are improving spontaneously. She states that she has mild left knee pain, close to where she had surgery for tibial fracture, she also has left heel pain. She was evaluated by her planishing press operator and referred to PT. she also states that she has multiple areas of skin and muscle sensitivity. Denies any new rashes Initial [id number]/29/2023: Ms. Brown, 38 yoF referred to our office for management of SLE. She was being seen at the [facility] - last seen 02/2023. She is currently on Cellcept and Hydroxychloroquine, Lyrica (By PCP) and Folic Acid. She sees Nephrology for history of proteinuria on a backdrop of lupus erythematosus. She is on mycophenolate. She has not been getting any cutaneous lesions now. She denies any urinary infections, fever, frothy urine, hematuria. She is not taking any excessive nonsteroidal inflammatories. She tries to maintain good hydration. She has no pedal edema. : Diagnosed with Lupus , skin biopsy-proven, after seeing the antique furniture repairer for hair loss and lesions to her face and scalp. She received scalp injections Face lesions related to lupus. Sun exposure - January, get rash on skin of feet and arms. Tries to avoid sun - because feet gets swollen; when lupus was not control/first diagnosed she had mouth ulcers, hair loss, biopsy of scalp, butterfly rash. For the last 3 years no evidence of lupus activity since starting CellCept and hydroxychloroquine.. [facility] Medical History Long-term use of immunosuppressant medication Fibromyalgia Lupus (systemic lupus erythematosus) Surgical History History of tubal ligation History of surgery on lower extremity History of thyroid surgery Family History Mother Diabetes Lupus Brother Diabetes Social History Household Members: Significant Other and Children Alcohol intake: never Patient Tobacco Use Status: Former Tobacco user Current occupational status: disabled Female Reproductive History Menstrual Total pregnancies: 2 Number of Living Children: 2 Review of Systems Const Denies fatigue, Denies fever(s) and Denies weight loss Resp Reports no additional complaints Musc Reports myalgias and Reports arthralgias Skin/Breast Reports alopecia Endo Denies fatigue Physical Exam Vital Signs: Last Vital Signs Pulse 71 01/03/24 15:43 BP 112/78 01/03/24 15:43 Pulse Ox 98 01/03/24 15:43 Oxygen Delivery Method Room Air 01/03/24 15:43 BMI result Body Mass Index 33.6 Const General: cooperative, healthy appearing and comfortable Nutritional Appearance: obese Orientation/consciousness: patient oriented x3 Limitations: no limitations HEENT Head: Yes normocephalic and Yes atraumatic Mouth: moist mucous membranes Resp Effort & Inspection: normal respiratory effort and able to speak in complete sentences Auscultation: clear to auscultation bilaterally Cardio Rate: regular rate Skin Other: Areas of scarring alopecia behind her ears bilaterally No significant scalp abnormalities in patient's area of concern on her crown Neuro General: patient oriented x3 Extrem Other: No active synovitis Normal nailfold capillaroscopy Multiple fibromyalgia tender points Assessment & Plan Assessment & Plan (1) Lupus (systemic lupus erythematosus): Comment: On Cellcept and HCQ over 10 years dx 2006 (skin biopsy-proven, arthralgias, rashes, scarring alopecia, proteinuria, pericarditis) Code(s): M32.9 - Systemic lupus erythematosus, unspecified Category: Medical Qualifiers: Systemic lupus erythematosus type: other Systemic lupus erythematosus organ involvement: other Qualified Code(s): M32.19 - Other organ or system involvement in systemic lupus erythematosus Plan: This is a 38-year-old female with SLE who presents for follow-up. This is her 1st visit with me. Patient is doing quite well overall with no signs of active SLE. She remains on hydroxychloroquine 20 mg Twice daily and CellCept 500 mg Twice daily The CellCept has been prescribed by Nephrology. Continue current meds Labs before next visit in 3 months (2) Long-term use of hydroxychloroquine: Comment: Eye exam 03/2023 okay Code(s): Z79.899 - Other jail (current) drug therapy Category: Medical Plan: Follow-up regularly with brick molder hand (3) Fibromyalgia: Code(s): M79.7 - Fibromyalgia Category: Medical Plan: Discussed management of fibromyalgia with patient. Patient would benefit from increased physical activity, either through formal physical therapy or by joining a gym. Advised patient that she should start activity slowly and increase as tolerated. Consider low-impact exercises such as walking, swimming, aqua therapy stretching, yoga. She is prescribed pregabalin by her PCP and she can continue with that Plan This is patient's 1st visit with me. I spent 47 minutes reviewing patient's chart, evaluating patient, ordering diagnostic workup, counseling patient and documenting in the chart Orders: Orders DNA Double Stranded-Crithidia 3 Months M32.19 - Other organ or system involvement in systemic lupus erythematosus Protein Creatinine Ratio, Ur 3 Months M32.19 - Other organ or system involvement in systemic lupus erythematosus Sjogren's Antibodies 3 Months M32.19 - Other organ or system involvement in systemic lupus erythematosus Comprehensive Met. Panel 3 Months M32.19 - Other organ or system involvement in systemic lupus erythematosus Hepatitis A,B,C Profile 3 Months Z11.59 - Encounter for screening for other viral diseases T Spot TB 3 Months Z11.7 - Encounter for testing for latent tuberculosis infection Cyclic Citrullinated Peptide 3 Months M25.50 - Pain in unspecified joint Anti Extractable Nuclear Ag 3 Months M32. - Other organ or system involvement in systemic lupus erythematosus Anti DNA DS Antibody 3 Months M32.19 - Other organ or system involvement in sys temic lupus erythematosus Complement C3 3 Months M3. - Other organ or system involvement in systemic lupus erythematosus Complement C4 3 Months . - Other organ or system involvement in systemic lupus erythematosus C Reactive Protein 3 Months . - Other organ or system involvement in systemic lupus erythematosus Erythrocyte Sedimentation Rate 3 Months . - Other organ or system involvement in systemic lupus erythematosus UA w Microscopic 3 Months . - Other organ or system involvement in systemic lupus erythematosus Complete Blood Count Auto Diff 3 Months . - Other organ or system involvement in systemic lupus erythematosus Immunofixation Pnl, Serum 3 Months . - Other organ or system involvement in systemic lupus erythematosus Protein Electrophoresis, Serum 3 Months 2.19 - Other organ or system involvement in systemic lupus erythematosus Rheumatoid Factor 3 Months M25.50 - Pain in unspecified joint Coding Level of Care Code Est Pt Level 5 (13978) Diagnoses Other systemic lupus erythematosus with other organ involvement . Systemic lupus erythematosus type: other Systemic lupus erythematosus organ involvement: other Long-term use of hydroxychloroquine Z79.899 Fibromyalgia M79.7
[2024-01-03 15:43] VITALS: BP 112/78; PULSE 71; O2SAT 98; BMI 33.6
== END 2024-01-03 16:22 | disposition home or self-care (01) ==
PROVIDERS: PCP Student in an Organized Health Care Education/Training Program; Visit Provider Student in an Organized Health Care Education/Training Program
DX: M32.19 Other organ or system involvement in systemic lupus erythematosus (principal); Z79.899 Other long term (current) drug therapy; M79.7 Fibromyalgia
CPT/HCPCS: 99215

== ENCOUNTER → 2024-01-03 15:36 | Outpatient (BNVA) | payer OTHER, SELFPAY | PROVIDERS: PCP Student in an Organized Health Care Education/Training Program; Visit Provider Student in an Organized Health Care Education/Training Program | DX: M32.19 Other organ or system involvement in systemic lupus erythematosus (principal); M79.7 Fibromyalgia; Z79.60 Long term (current) use of unspecified immunomodulators and immunosuppressants | CPT/HCPCS: 99212 ==

== ENCOUNTER 2024-05-23 09:03 | Outpatient (REF) | payer OTHER, SELFPAY ==
[2024-05-23 09:38] LABS: MANUAL DIFF FLAG NO
--- OUTSIDE RECORDS SUMMARY | 2024-05-23 10:28 | XMS_ITS | Clinical Summary ---
Author Organization [facility] Address [address] [place] [address] Care Team Providers Care Industrial Property Appraiser Name Role Phone Jose Azevedo MD Primary Care Provider [phone] Allergies No known active allergies Medications Medication Sig Dispensed Refills Start Date End Date Status albuterol HFA (PROAIR HFA ; PROVENTIL HFA ; VENTOLIN HFA) 90 mcg/actuation inhaler Inhale 2 Puffs into the lungs every 4 hours as needed for Wheezing. 12/08/2023 Active clonazePAM (KlonoPIN) 1 mg tablet Take 1 Tablet by mouth as needed. Active diclofenac (VOLTAREN) 1 % topical gel Apply 4 g topically 2 times daily. 11/28/2023 Active fluticasone HFA (FLOVENT HFA) 110 mcg/actuation inhaler Inhale 1 Puff into the lungs 2 times daily. Active folic acid (FOLVITE) 1 mg tablet Take 1 Tablet by mouth daily. 10/30/2023 Active hydroxychloroquine (PLAQUENIL) 200 mg tablet Take 1 Tablet by mouth 2 times daily. Active mycophenolate (CELLCEPT) 500 mg tablet Take 1 Tablet by mouth 2 times daily. 10/30/2023 Active pregabalin (LYRICA) 150 mg capsule Take 1 Capsule by mouth 2 times daily. 10/28/2023 Active zolpidem (AMBIEN) 10 mg tablet Take 1 Tablet by mouth at bedtime. Active Active Problems Problem Noted Date Diagnosed Date Mild intermittent asthma without complication Obesity (BMI 30-39.9) 06/21/2023 Lupus (systemic lupus erythematosus) 01/04/2023 Fibromyalgia 01/04/2023 Immunizations Name Administration Dates Next Due Influenza Quadravalent, MDCK , 0.5ml, preservative free (Flucelvax) 6mo and older 05/11/2023 Tdap Tetanus diptheria acell ular pertussis (Boostrix; Adacel) 7yo and older 05/11/2023 Surgical History Surgery Date Site/Laterality Comments OTHER SURGICAL HISTORY 2019 Left PROCEDURE: CT EXC CYST/ADENOMA THYROID/TRANSECTION ISTHMUS; COMMENT: left sidec thyroid cyst removed KNEE SURGERY 2021 Left PROCEDURE: HISTORICAL KNEE SURGERY; COMMENT: done at [facility] TUBAL LIGATION 2003 Bilateral PROCEDURE: HISTORICAL TUBAL LIGATION; COMMENT: done in [place] Medical History Medical History Date Comments Lupus 01/04/2023 DX:Lupus Fibromyalgia 01/04/2023 DX:Fibromyalgia Fibromyalgia 01/04/2023 DX:Fibromyalgia Obesity (BMI 30-39.9) 06/21/2023 DX:Obesity (BMI 30-39.9) Mild intermittent asthma wit hout complication 06/21/2023 DX:Mild intermittent asthma without complication Family History Medical History Relation Name Comments Diabetes Brother No Known Problems Father no communi cation with father Arthritis Mother Diabetes Mother Other: HLD Mother Other: lupus Mother Thyroid disease Mother Relation Name Status Comments Brother Father Maternal Grandfather Maternal Grandmother Mother Paternal Grandfather Paternal Grandmother Social History Tobacco Use Types Packs/Day Years Used Date Smoking Tobacco: Former Cigarettes 0.3 10.2 0 04/25/2012 - 06/23/2022 Smokeless Tobacco: Never Alcohol Use Standard Drinks/Week Comments Not Currently 0 (1 standard drink = 0.6 oz pur e alcohol) Sex and Gender Information Value Date Recorded Sex Assigned at Not on file Gender Identity Not on file Sexual Orientation Not on file Obstetrics History Last Filed Vital Signs Vital Sign Reading Time Taken Comments Blood Pressure 116/75 12/20/2023 1:37 PM EDT Pulse 98 12/20/2023 1:37 PM EDT Temperature - - Respiratory Rate - - Oxygen Saturation - - Inhaled Oxygen Concentration - - Weight 89.8 kg (198 lb) 01/02/2024 9:06 AM EDT Height 165.1 cm (5' 5 ) 01/02/2024 9:06 AM EDT Body Mass Index 32.95 01/02/2024 9:06 AM EDT Plan of Treatment Upcoming Encounters Date Type Department Care Team (Late st Contact Info) Description 06/25/2024 1:00 PM EST Office Visit Internal Medicine - [address] [place] [id number] Jose Azevedo MD [address] [place] [id number] Health Maintenance Due Date Last Done Comments COVID-19 Vaccine (#1) 1990 Pneumococcal Vaccine: Pediat rics (0 to 5 Years) and At-Risk Patients (6 to 64 Years) (1 of 2 - PCV) 1991 Hepatitis B Vaccines (1 of 3 - 19+ 3-dose series) 02/14/2004 Cervical Cancer Screening: P ap Smear 2006 Depression Screening 03/28/2022 HIV Screening 03/28/2022 Hepatitis C Screening 03/28/2022 Social Influencers of Health Screening 03/28/2022 Influenza Vaccine (#1) 2023 05/11/2023 Cholesterol Screening (Lipid Panel) 01/01/2028 12/31/2022 DTaP,Tdap,and Td Vaccines (2 - Td or Tdap) 05/11/2033 05/11/2023 HIB Vaccines Aged Out No longer eligi ble based on patient's age to complete this topic HPV Vaccines Aged Out No longer eligi ble based on patient's age to complete this topic Hepatitis A Vaccines Aged Out No long er eligible based on patient's age to complete this topic IPV Vaccines Aged Out No longer eligi ble based on patient's age to complete this topic MMR Vaccines Aged Out No longer eligi ble based on patient's age to complete this topic Meningococcal ACWY Vaccine Aged Out N o longer eligible based on patient's age to complete this topic RSV Immunization Patients Un gisela 20 months Aged Out No longer eligible b ased on patient's age to complete this topic Varicella Vaccines Aged Out No longer eligible based on patient's age to complete this topic Procedures Procedure Name Priority Date/Time Associated Diagnosis Comments LIPID PANEL Routine 12/31/2022 from Last 3 Months or Most Recently Relevant to Health Maintenance Results * Lipid panel (12/31/2022) LDL/HDL Ratio 3 0 - 4 Triglycerides 131 0 - 150 mg/dL Cholesterol 133 0 - 200 mg/dL HDL 43 40 mg/dL LDL Cholesterol 64 0 - 100 mg/dL Blood Venous blood specimen / Unknown Historical Provider LAB BLOOD ORDERAB LES from Last 3 Months or Most Recently Relevant to Health Maintenance Care Teams Industrial Property Appraiser Relationship Specialty Start Date End Date Jose Azevedo MD [address] [place] [address] PCP - General 10/05/22
--- OUTSIDE RECORDS SUMMARY | 2024-05-23 10:28 | XMS_ITS | Clinical Summary ---
Author Organization [facility] Address [address] [facility] [address] [place] [address] Phone Care Team Providers Care Operations Architect Name Role Phone Deena Sam MD Primary Care Provider Allergies No known active allergies Medications clonazePAM (KlonoPIN) 1 MG tablet Take 1 tablet by mouth 1 (one) time each day Active escitalopram (LEXAPRO) 10 MG tablet Take 1.5 tablets by mouth 1 (one) time each day Active folic acid (FOLVITE) 1 MG tablet Take 1 tablet by mouth 1 (one) time each day Active pregabalin (LYRICA) 150 MG capsule Take 1 capsule by mouth 1 (one) time each day Active zolpidem (AMBIEN) 5 MG tablet Take 1 tablet by mouth 1 (one) time each day 02/01/2021 Active hydroxychloroqu ine (PLAQUENIL) 200 MG tablet Take 1 tablet by mouth in the morning and 1 tablet in the evening. 05/24/2021 Active mycophenolate (CELLCEPT) 500 MG tablet TOME MUSA TABLETA DOS VECES AL ADRIANNE 180 tablet 1 06/12/2022 Active Active Problems Problem Noted Date Diagnosed Date Cervical spondylosis 07/21/2021 Arthropathy of cervical spine facet joint 2021 Asthma 07/21/2021 Fibromyositis 07/21/2021 Myofascial pain 07/21/2021 Obesity 07/21/2021 Pericardial effusion 07/21/2021 Overview (07/21/2021): hx of resolved documented by Rheumatology note. 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 Patient is feeling somewhat better. No hallucinations, tics, or dark depressive moods. 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 Pending this, she will continue on 3 mg of prednisone daily, 200 mg of Plaquenil daily, 500 mg of CellCept twice daily, and 120 mg of monthly Benlysta infused intravenously. I refilled these medications today along with hydrocodone and diclofenac gel. I requested new lab work. No visits with results within 3 Month(s) from this visit. Latest known visit with results is: Hospital Outpatient Visit on 05/29/2018 Component Date Value Ref Range Status ? ? SODIUM 05/29/2018 141 133 - 146 mmol/L Final ? ? POTASSIUM 05/29/2018 4.0 3.3 - 5.1 mmol/L Final ? ? CHLORIDE 05/29/2018 103 96 - 108 mmol/L Final ? ? CO2 05/29/2018 25 21 - 35 mmol/L Final ? ? BUN 05/29/2018 8 6 - 19 mg/dL Final ? ? CREATININE 05/29/2018 0.80 0.5 - 1.5 mg/dL Final ? ? GLUCOSE 05/29/2018 76 70 - 99 mg/dL Final ? ? ALBUMIN 05/29/2018 3.9 3.9 - 4.8 g/dL Final ? ? TOTAL PROTEIN 05/29/2018 6.9 6.5 - 8.0 g/dL Final ? ? CALCIUM 05/29/2018 8.9 8.4 - 10.3 mg/dL Final ? ? ALKALINE PHOSPHATASE 05/29/2018 62 39 - 117 U/L Final ? ? TOTAL BILIRUBIN 05/29/2018 0.2 0.0 - 1.2 mg/dL Final ? ? AST 05/29/2018 15 0 - 37 U/L Final ? ? ALT 05/29/2018 14 0 - 40 U/L Final ? ? GLOBULIN 05/29/2018 3.0 1 - 4.8 g/dL Final ? ? EGFR 05/29/2018 97 >59 mL/min/1.73m2 Final If patient is black, multiply result by 1.159. Estimated glomerular filtration rate calculated using the CKD-EPI equation. ? ? ANION GAP 05/29/2018 17 10 - 20 mmol/L Final ? ? C REACTIVE PROTEIN 05/29/2018 4.3* 0.0 - 4.0 mg/L Final ? ? WBC 05/29/2018 7.90 3.40 - 11.20 K/uL Final ? ? RBC 05/29/2018 4.89* 3.80 - 4.80 M/uL Final ? ? HGB 05/29/2018 13.4 12.0 - 15.0 g/dL Final ? ? HCT 05/29/2018 41.7 36.0 - 46.0 % Final ? ? PLT 05/29/2018 230 130 - 400 K/uL Final ? ? MCV 05/29/2018 85.3 79.0 - 98.0 fL Final ? ? MCH 05/29/2018 27.4 27.0 - 34.8 pg Final ? ? MCHC 05/29/2018 32.1 31.5 - 36.0 g/dL Final ? ? RDW 05/29/2018 13.2 10.8 - 14.6 % Final ? ? MPV 05/29/2018 11.8 9.4 - 12.4 fl Final ? ? NRBC 05/29/2018 0.00 0.00 /100 WBCs Final ? ? ABSOLUTE NRBC 05/29/2018 0.00 0.00 K/uL Final ? ? DIFF METHOD 05/29/2018 Auto Final ? ? NEUTS 05/29/2018 50.4 45.30 - 77.70 % Final ? ? LYMPHS 05/29/2018 39.4 12.30 - 39.70 % Final ? ? MONOS 05/29/2018 8.6 4.10 - 12.80 % Final ? ? EOS 05/29/2018 0.8 0 - 7.2 % Final ? ? BASOS 05/29/2018 0.4 0 - 2.80 % Final ? ? Granulocytes, immature (%) 05/29/2018 0.4 0.0 - 0.9 % Final ? ? ABSOLUTE NEUTS 05/29/2018 3.99 1.40 - 7.70 K/uL Final ? ? ABSOLUTE LYMPHS 05/29/2018 3.11 0.60 - 3.20 K/uL Final ? ? ABSOLUTE MONOS 05/29/2018 0.68* 0.11 - 0.59 K/uL Final ? ? ABSOLUTE EOS 05/29/2018 0.06 0.01 - 0.50 K/uL Final ? ? ABSOLUTE BASOS 05/29/2018 0.03 0.00 - 0.08 K/uL Final ? ? 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 No toxicity from the medications. Doing well. Check lab work. Previous lab work was reviewed. No evidence of infection or vasculopathy. Hospital Outpatient Visit on 07/17/2020 Component Date Value Ref Range Status ? ? QUANTIFERON-TB GOLD 07/17/2020 Negative Negative Final Comment: (NOTE) No interferon-gamma response to M. tuberculosis antigens was detected. Infection with M. tuberculosis is unlikely. A single negative result does not exclude infection with M. tuberculosis. In patients at high risk for M.tuberculosis infection, a second test should be considered in accordance with the 2017 ATS/IDSA/CDC Clinical Practice Guidelines for Diagnosis of Tuberculosis in Adults and Children [Sruthin CHRIS et. al. Clin. Infect. Dis. 2017;64(2):111-115]. The reference range for the 'TB1 Ag minus Nil Result' and 'TB2 Ag minus Nil Result' is an Interferon-gamma level <0.35 IU/mL. ? ? TB1 AG MINUS NIL 07/17/2020 NEG 0.06 IU/mL Final ? ? TB2 AG MINUS NIL 07/17/2020 NEG 0.06 IU/mL Final ? ? MITOGEN MINUS NIL 07/17/2020 7.08 IU/mL Final ? ? NIL RESULT 07/17/2020 0.11 IU/mL Final ? ? ANGIOTENSIN CONV. ENZ 07/17/2020 39 16 - 85 U/L Final ? ? C4 07/17/2020 17 12 - 39 mg/dL Final ? ? C3 07/17/2020 101 81 - 157 mg/dl Final ? ? ANTI DSDNA ANTIBODY 07/17/2020 POSITIVE AT 1:320 Final Comment: Courtney Hill M.D., Director Clinical Immunology Laboratory [id number] Normal: Negative at 1:10 Anti-miami DNA Antibodies detected on Crithidia Luciliae Substrate The indirect immunofluorescence test on Crithidia luciliae substrate shows that antibodies in the serum of this patient react with the kinetoplast of Crithidia luciliae, a monoflagellate protozoan organism. The kin etoplast contains small ringlets of double-stranded DNA. It does not contain single-stranded DNA or, except in very unusual circumstances, free histones. This staining pattern therefore, most likely, reflects the presence of antibodies to double-stranded DNA. Antibodies to double-stranded DNA are found in patients with SLE and in about 20 per cent of patients with mixed connective tissue disease (MCTD). This antibody is rarely found in other rheumatic diseases or in drug-induced SLE. Vzmn-qoiiux-usmzfebu DNA antibodies are usually detected in SLE patients with active disease, but not in those with spontaneous or induced remissions. Sequential testing of serum for the presence and titer of this antibody provides a cost-effective approach to following disease activity in many patients with SLE. ? ? C REACTIVE PROTEIN 07/17/2020 3.1 0.0 - 4.0 mg/L Final ? ? SODIUM 07/17/2020 139 133 - 146 mmol/L Final ? ? POTASSIUM 07/17/2020 4.2 3.3 - 5.1 mmol/L Final ? ? CHLORIDE 07/17/2020 105 96 - 108 mmol/L Final ? ? CO2 07/17/2020 26 21 - 35 mmol/L Final ? ? BUN 07/17/2020 10 6 - 19 mg/dL Final ? ? CREATININE 07/17/2020 0.80 0.5 - 1.5 mg/dL Final ? ? GLUCOSE 07/17/2020 103* 70 - 99 mg/dL Final ? ? ALBUMIN 07/17/2020 3.5* 3.9 - 4.8 g/dL Final ? ? TOTAL PROTEIN 07/17/2020 6.6 6.5 - 8.0 g/dL Final ? ? CALCIUM 07/17/2020 9.1 8.4 - 10.3 mg/dL Final ? ? ALKALINE PHOSPHATASE 07/17/2020 69 39 - 117 U/L Final ? ? TOTAL BILIRUBIN 07/17/2020 0.2 0.0 - 1.2 mg/dL Final ? ? AST 07/17/2020 18 0 - 37 U/L Final ? ? ALT 07/17/2020 15 0 - 40 U/L Final ? ? GLOBULIN 07/17/2020 3.1 1 - 4.8 g/dL Final ? ? EGFR 07/17/2020 96 >59 mL/min/1.73m2 Final Estimated glomerular filtration rate calculated using the CKD-EPI equation. ? ? ANION GAP 07/17/2020 12 10 - 20 mmol/L Final ? ? WBC 07/17/2020 7.14 4.00 - 11.00 K/uL Final ? ? RBC 07/17/2020 5.07 3.72 - 5.30 M/uL Final ? ? HGB 07/17/2020 13.9 10.6 - 15.5 g/dL Final ? ? HCT 07/17/2020 43.7 32.0 - 45.0 % Final ? ? PLT 07/17/2020 246 140 - 430 K/uL Final ? ? MCV 07/17/2020 86.2 78.0 - 97.0 fL Final ? ? MCH 07/17/2020 27.4 25.0 - 33.0 pg Final ? ? MCHC 07/17/2020 31.8* 32.0 - 36.0 g/dL Final ? ? RDW 07/17/2020 13.3 11.0 - 16.0 % Final ? ? MPV 07/17/2020 10.9 8.4 - 12.8 fl Final ? ? NRBC 07/17/2020 0.00 0 /100 WBCs Final ? ? ABSOLUTE NRBC 07/17/2020 0.00 0 K/uL Final ? ? DIFF METHOD 07/17/2020 Auto Final ? ? NEUTS 07/17/2020 45.2 43.0 - 75.0 % Final ? ? LYMPHS 07/17/2020 41.6 18.2 - 47.4 % Final ? ? MONOS 07/17/2020 10.5 4.00 - 11.00 % Final ? ? EOS 07/17/2020 1.8 0.0 - 8.0 % Final ? ? BASOS 07/17/2020 0.6 0.0 - 2.0 % Final ? ? Granulocytes, immature (%) 07/17/2020 0.3 0.0 - 0.9 % Final ? ? ABSOLUTE NEUTS 07/17/2020 3.23 1.80 - 7.70 K/uL Final ? ? ABSOLUTE LYMPHS 07/17/2020 2.97 1.00 - 3.10 K/uL Final ? ? ABSOLUTE MONOS 07/17/2020 0.75 0.20 - 0.80 K/uL Final ? ? ABSOLUTE EOS 07/17/2020 0.13 0.00 - 0.80 K/uL Final ? ? ABSOLUTE BASOS 07/17/2020 0.04 0.00 - 0.09 K/uL Final ? ? 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 I advised bilateral heel cups as well as well fitting supportive shoes with good shock absorption and plenty of room in the toe box to accommodate her osteoarthrosis. In addition we will obtain x-rays of both feet. She will receive intra-articular cortisone injections into the first MTP joints. Cyst of thyroid 03/05/2020 01/19/2021 Overview (01/19/2021): Last Assessment & Plan: Reviewed thyroid ultrasound indicating a right lobar cyst with the left lobe of the thyroid should be. Isthmus is normal. Right lobe is normal. She will have an MRI of the neck for further examination of the thyroid gland. She will have thyroid function and antithyroid antibodies checked today. Rotator cuff impingement syndrome 03/05/2020 01/19/2021 Overview (01/19/2021): Last Assessment & Plan: Pendulum and wall walking motion exercises as well as injection therapy today. Candidiasis of mouth 02/18/2020 021 Overview (01/19/2021): Last Assessment & Plan: Though not overtly seen on exam today I would like to treat her for thrush given her dysphagia and long-term chronic glucocorticoid use. Spinal enthesopathy of cervical region 02/18/2020 01/19/2021 Overview (01/19/2021): Last Assessment & Plan: Intermittent radiculopathy and flare of enthesopathy will be treated with local injection therapy today. Cervical radiculitis 11/05/2019 021 Overview (01/19/2021): Last Assessment & Plan: I reviewed the x-ray of her cervical spine. She is going to have an injection tomorrow. She will get back to move a phone call 1 week after the injection. No change in her lupus medication. Other slipping, tripping and stumbling without falling, initial encounter 12/04/201801/19 Alopecia 03/23/2017 01/19/2021 Overview (01/19/2021): Last Assessment & Plan: Secondary to systemic lupus and long-term use of glucocorticoids but relatively stable at this time. Reactive depression (situational) 03/23/2017 01/19/2021 Overview (01/19/2021): Last Assessment & Plan: Stable without dark depressive thoughts or suicidal ideation on 150 g of trazodone at bedtime and 10 g of citalopram in the morning. Encouraged to contact her provider to go over her psychiatric medications. Fibromyalgia 03/23/2017 01/19/2021 Overview (01/19/2021): Last Assessment & Plan: Multiple tender points and fatigue overlay her systemic lupus and is best treated with a combination of Lyrica which she does well with as well as vitamin D and clonazepam. Good sleep hygiene and low inflammatory diet with caloric restriction were discussed as well. Hospital Outpatient Visit on 07/17/2020 Component Date Value Ref Range Status ? ? QUANTIFERON-TB GOLD 07/17/2020 Negative Negative Final Comment: (NOTE) No interferon-gamma response to M. tuberculosis antigens was detected. Infection with M. tuberculosis is unlikely. A single negative result does not exclude infection with M. tuberculosis. In patients at high risk for M.tuberculosis infection, a second test should be considered in accordance with the 2017 ATS/IDSA/CDC Clinical Practice Guidelines for Diagnosis of Tuberculosis in Adults and Children [Lewinsdevaughn PEREZ et. al. Clin. Infect. Dis. 2017;64(2):111-115]. The reference range for the 'TB1 Ag minus Nil Result' and 'TB2 Ag minus Nil Result' is an Interferon-gamma level <0.35 IU/mL. ? ? TB1 AG MINUS NIL 07/17/2020 NEG 0.06 IU/mL Final ? ? TB2 AG MINUS NIL 07/17/2020 NEG 0.06 IU/mL Final ? ? MITOGEN MINUS NIL 07/17/2020 7.08 IU/mL Final ? ? NIL RESULT 07/17/2020 0.11 IU/mL Final ? ? ANGIOTENSIN CONV. ENZ 07/17/2020 39 16 - 85 U/L Final ? ? C4 07/17/2020 17 12 - 39 mg/dL Final ? ? C3 07/17/2020 101 81 - 157 mg/dl Final ? ? ANTI DSDNA ANTIBODY 07/17/2020 POSITIVE AT 1:320 Final Comment: Courtney Hill M.D., Director Clinical Immunology Laboratory [id number] Normal: Negative at 1:10 Anti-miami DNA Antibodies detected on Crithidia Luciliae Substrate The indirect immunofluorescence test on Crithidia luciliae substrate shows that antibodies in the serum of this patient react with the kinetoplast of Crithidia luciliae, a monoflagellate protozoan organism. The kin etoplast contains small ringlets of double-stranded DNA. It does not contain single-stranded DNA or, except in very unusual circumstances, free histones. This staining pattern therefore, most likely, reflects the presence of antibodies to double-stranded DNA. Antibodies to double-stranded DNA are found in patients with SLE and in about 20 per cent of patients with mixed connective tissue disease (MCTD). This antibody is rarely found in other rheumatic diseases or in drug-induced SLE. Oxnt-jkvfaf-ngvawrmu DNA antibodies are usually detected in SLE patients with active disease, but not in those with spontaneous or induced remissions. Sequential testing of serum for the presence and titer of this antibody provides a cost-effective approach to following disease activity in many patients with SLE. ? ? C REACTIVE PROTEIN 07/17/2020 3.1 0.0 - 4.0 mg/L Final ? ? SODIUM 07/17/2020 139 133 - 146 mmol/L Final ? ? POTASSIUM 07/17/2020 4.2 3.3 - 5.1 mmol/L Final ? ? CHLORIDE 07/17/2020 105 96 - 108 mmol/L Final ? ? CO2 07/17/2020 26 21 - 35 mmol/L Final ? ? BUN 07/17/2020 10 6 - 19 mg/dL Final ? ? CREATININE 07/17/2020 0.80 0.5 - 1.5 mg/dL Final ? ? GLUCOSE 07/17/2020 103* 70 - 99 mg/dL Final ? ? ALBUMIN 07/17/2020 3.5* 3.9 - 4.8 g/dL Final ? ? TOTAL PROTEIN 07/17/2020 6.6 6.5 - 8.0 g/dL Final ? ? CALCIUM 07/17/2020 9.1 8.4 - 10.3 mg/dL Final ? ? ALKALINE PHOSPHATASE 07/17/2020 69 39 - 117 U/L Final ? ? TOTAL BILIRUBIN 07/17/2020 0.2 0.0 - 1.2 mg/dL Final ? ? AST 07/17/2020 18 0 - 37 U/L Final ? ? ALT 07/17/2020 15 0 - 40 U/L Final ? ? GLOBULIN 07/17/2020 3.1 1 - 4.8 g/dL Final ? ? EGFR 07/17/2020 96 >59 mL/min/1.73m2 Final Estimated glomerular filtration rate calculated using the CKD-EPI equation. ? ? ANION GAP 07/17/2020 12 10 - 20 mmol/L Final ? ? WBC 07/17/2020 7.14 4.00 - 11.00 K/uL Final ? ? RBC 07/17/2020 5.07 3.72 - 5.30 M/uL Final ? ? HGB 07/17/2020 13.9 10.6 - 15.5 g/dL Final ? ? HCT 07/17/2020 43.7 32.0 - 45.0 % Final ? ? PLT 07/17/2020 246 140 - 430 K/uL Final ? ? MCV 07/17/2020 86.2 78.0 - 97.0 fL Final ? ? MCH 07/17/2020 27.4 25.0 - 33.0 pg Final ? ? MCHC 07/17/2020 31.8* 32.0 - 36.0 g/dL Final ? ? RDW 07/17/2020 13.3 11.0 - 16.0 % Final ? ? MPV 07/17/2020 10.9 8.4 - 12.8 fl Final ? ? NRBC 07/17/2020 0.00 0 /100 WBCs Final ? ? ABSOLUTE NRBC 07/17/2020 0.00 0 K/uL Final ? ? DIFF METHOD 07/17/2020 Auto Final ? ? NEUTS 07/17/2020 45.2 43.0 - 75.0 % Final ? ? LYMPHS 07/17/2020 41.6 18.2 - 47.4 % Final ? ? MONOS 07/17/2020 10.5 4.00 - 11.00 % Final ? ? EOS 07/17/2020 1.8 0.0 - 8.0 % Final ? ? BASOS 07/17/2020 0.6 0.0 - 2.0 % Final ? ? Granulocytes, immature (%) 07/17/2020 0.3 0.0 - 0.9 % Final ? ? ABSOLUTE NEUTS 07/17/2020 3.23 1.80 - 7.70 K/uL Final ? ? ABSOLUTE LYMPHS 07/17/2020 2.97 1.00 - 3.10 K/uL Final ? ? ABSOLUTE MONOS 07/17/2020 0.75 0.20 - 0.80 K/uL Final ? ? ABSOLUTE EOS 07/17/2020 0.13 0.00 - 0.80 K/uL Final ? ? ABSOLUTE BASOS 07/17/2020 0.04 0.00 - 0.09 K/uL Final ? ? Granulocytes, immature 07/17/2020 0.02 0.00 - 0.05 K/uL Final Immunizations Name Administration Dates Next Due Influenza, Quadrivalent, Preservative Free 02/17 Pfizer SARS-COV-2 03/21/2021,08/16/2020,07/27/19 21 Tdap 02/27/2014 Family History Medical History Relation Comments Diabetes Mother Hypertension Mother Diabetes Sibling Relation Status Comments Father Alive Mother Alive Sibling Social History Tobacco Use Types Packs/Day Years Used Date Smoking Tobacco: Some Days Smokeless Tobacco: Current Tobacco Cessation:Ready to Q uit: Not Asked; Counseling Given: Not Answered Alcohol Use Standard Drinks/Week Comments No 0 (1 standard drink = 0.6 oz pur e alcohol) Comments Unknown Sex and Gender Information Value Date Recorded Sex Assigned at Not on file Legal Sex Female 5:04 PM EST Gender Identity Not on file Sexual Orientation Not on file Last Filed Vital Signs Vital Sign Reading Time Taken Comments Blood Pressure 106/70 06/28/2022 12:58 PM EST Pulse 70 09/04/2018 12:00 PM EDT Temperature - - Respiratory Rate - - Oxygen Saturation - - Inhaled Oxygen Concentration - - Weight 88.7 kg (195 lb 9.6 oz) 06/28/2022 12:58 PM EST Height 165.1 cm (5' 5 ) 08/10/2019 12:00 PM EDT Body Mass Index 32.55 08/10/2019 12:00 PM EDT Plan of Treatment Health Maintenance Due Date Last Done Comments Pneumococcal Vaccine: Pediat rics (0 to 5 Years) and At-Risk Patients (6 to 64 Years) (1 of 2 - PCV) 1991 Hepatitis B Vaccine (1 of 3 - 19+ 3-dose series) 02/13 Influenza Vaccine (#1) 2023 02/18/2020 Insurance * Guarantor: Stephanie Goncalves Account Type Relation to Patient Date of Phone Billing Address Personal/Family Self 1985 [address] ([id number]) [facility] ([id number]) Care Teams Operations Architect Relationship Specialty Start Date End Date Deena Sam MD [address] [place] [address] [address] [place] [address] PCP - General Internal Medicine 02/16/21
--- OUTSIDE RECORDS SUMMARY | 2024-05-23 10:28 | XMS_ITS ---
Author Organization [address] [facility] Address [address] [facility] [address] [place] [address] Care Team Providers Care Turbine Technician Name Role Phone [place], [facility] Primary Care Provider Unavailab Jania Pennington Unavailable [phone] REASON FOR VISIT HAVING DISCHARGE & BLOATING Encounters Encounter Location Date Provider Diagnosis [facility] [address] [place] [address] 11/24/2022 Jania Sepulveda Plan Of Treatment Next Appt Details Provider Name:Jania albarran, 09/06/2024 11:00:00 AM, [address] [facility], [address], [place], [address], Progress Notes * DEAN RETANASHANEB: 5 (37 yo F)Acc No.[id number]:11/24/2022 Patient:?BRETT RETANA :1985???Age:37 Y???Sex:Female Address:[address] [place] [address], [id number] * true * Date:? Generated for Printi ng/Favamshig/eTransmitting on:?05/23/2024 10:27 AM EST
--- OUTSIDE RECORDS SUMMARY | 2024-05-23 10:28 | XMS_ITS | Encounter Summary ---
Author Organization [facility] Address [address] [place] [address] Phone Care Team Providers Care Shotgun Shell Assembly Machine Adjuster Name Role Phone Deena Sam MD Primary Care Provider Reason for Visit * Reason Comments Med Refill Encounter Details Date Type Department Care Team (Late st Contact Info) Description 12/10/2022 Refill [facility] [address] [place] [phone] Merrick Meza MD Social History Tobacco Use Types Packs/Day Years Used Date Smoking Tobacco: Some Days Smokeless Tobacco: Current Alcohol Use Standard Drinks/Week Comments No 0 (1 standard drink = 0.6 oz pur e alcohol) Comments Unknown Sex and Gender Information Value Date Recorded Sex Assigned at Not on file Legal Sex Female 5:04 PM EST Gender Identity Not on file Sexual Orientation Not on file documented as of this encounter Plan of Treatment Not on file documented as of this encounter Visit Diagnoses Not on filedocumented in this encounter Care Teams Shotgun Shell Assembly Machine Adjuster Relationship Specialty Start Date End Date Deena Sam MD [address] [place] [address] [address] [place] [address] PCP - General Internal Medicine 02/16/21 documented as of this encounter
--- OUTSIDE RECORDS SUMMARY | 2024-05-23 10:29 | XMS_ITS ---
Author Organization [email or web address] [facility] Address [address] [place] [address] Care Team Providers Care Repairer Controller Tester Name Role Phone [place], [facility] Primary Care Provider Unavailab Jania Pennington Unavailable [phone] Allergies No Known Allergies Results Component Value Reference Range Notes Urinalysis Reviewed date:09/01/2023 11:00:37 AM Interpretation: Performing Lab: Notes/Report: PH 5.0 PROTEIN NEG GLUCOSE NEG BLOOD NEG [id number] IGP, CtNg Culture 30 Plus Reviewed date:09/06/2023 07:23:19 PM Interpretation: Performing Lab:[facility] [place], [address], [address], [place], Phone - [phone], Director - [facility] Notes/Report: Clinical Information:[id number] LMP / Prev Treat...[id number] Dates / Results....07/26/22 NIL No. of containers..01 ThinPrep Vial DIAGNOSIS: NEGATIVE FOR IN TRAEPITHELIAL LESION OR MALIGNANCY. Specimen adequacy: Satisfact ory for evaluation. No endocervical component is identified. Clinician provided ICD10: Z01.419 Z11.3 Z72.51 Performed by: Bryan aviles, Dealer Card Room (ASCP) . . Note: The Pap smear is a screening test designed to aid in the detection of premalignant and malignant conditions of the uterine cervix. It is not a diagnostic procedure and should not be used as the sole means of detecting cervical cancer. Both false-positive and false-negative reports do occur. . Test Methodology: This liquid based ThinPrep(R) pap test was screened with the use of an image guided system. HPV Aptima Negative Negative This nucleic acid amplification test detects fourteen high-risk HPV types (16,18,31,33,35,39,45,51,52,56,58 ,59,66,68) without differentiation. HPV Genotype Reflex Criteria not met, HPV Genotype not performed. Chlamydia, Nuc. Acid Amp Negative Negative Gonococcus, Nuc. Acid Amp Negative Negative PDF Report Reviewed date:09/06/2023 07:22:34 PM Interpretation: Performing Lab:[facility] [place], [address], [address], [place], Phone - [phone], Director - [facility] Notes/Report: Clinical Information:[id number] LMP / Prev Treat...[id number]=[id number] Dates / Results....07/26/22 NIL No. 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 Physical -* Medications Medication SIG (Take, Route, Frequency, Duration) Notes Start Date End Date Status Pregabalin 150 MG Oral for 90 Days Active Zolpidem Tartrate 10 MG Oral for 30 Days Active Flovent HFA 09/01/2023 Active clonazePAM 1 MG Orally Acti ve Folic Acid Active CellCept 500 MG Orally Acti ve Lyrica 150 MG Orally Active Escitalopram Oxalate 10 MG TOME DOS TABL ETAS POR V A ORAL TODOS LOS D EN LA MA NIKKI Oral for 30 Active Mycophenolate Mofetil 250 MG 1 capsule O rally Twice a day Active Social History Tobacco Use: Social History Observation Description Date Details (start date - stop date) Current Smoker NA - NA Tobacco Use/Smoking Question Answer Notes Are you a current smoker How many cigarettes a day do you smoke? 5 or les s Alcohol Screen (Audit-C) Question Answer Notes Did you have a drink containing alcohol in the p ast year? No Points 0 Interpretation Negative Sexual History Question Answer Notes Had sex in the past 12 months (vaginal, oral, or anal)? Yes with Men only Prevention strategies discussed: Other Tobacco use other than smoking: Question Answer Notes Are you an other tobacco user? Yes Vital Signs Temperature 97.3 degrees Fahrenheit 09/01/19 24 Blood pressure systolic 100 mm Hg 09/01/19 24 Blood pressure diastolic 74 mm Hg 024 Height 65 in 09/01/2023 Weight 191 lbs 09/01/2023 BMI 31.78 kg/m2 09/01/2023 Encounters Encounter Location Date Provider Diagnosis [address] [place] [address] 09/01/2023 Jania Sepulveda Encounter for gynecological examination (general) (routine) without abnormal findings Z01.419 ; Encounter for screening for infections with a predominantly sexual mode of transmission Z11.3 ; High risk heterosexual behavior Z72.51 ; Personal history of cervical dysplasia Z87.410 and Personal history of other diseases of the female genital tract Z87.42 Assessments Encounter Date Diagnosis (ICD Code) Assessment Notes Treatment Notes Treatment Clinical Notes Section Notes 09/01/2023 Encounter for gynecological examination (general) (routine) without abnormal findings (ICD-10 - Z01.419) PAP TEST WITH HPV TYPING WAS OBTAINED. 09/01/2023 Encounter for screening for infections with a predominantly sexual mode of transmission (ICD-10 - Z11.3) GC & CHLAMYDIA TEST WITH PAP SMEAR. 09/01/2023 High risk heterosexual behavior (ICD-10 - Z72.51) 09/01/2023 Personal history of cervical dysplasia (ICD-10 - Z87.410) DISCUSSED PREVIOUS HX OF JEREMY AND HX OF PREVIOUSLY ABNORMAL PAP TESTS. 09/01/2023 Personal history of other diseases of the female genital tract (ICD-10 - Z87.42) DISCUSSED LAST PAP TEST IN 2020 SHOWING ASC-H AND NEGATIVE COLPOSCOPY. Plan Of Treatment Treatment Notes Assessment Notes Encounter for gynecological examination (general) (routine) without abnormal findings PAP TEST WITH HPV TYPING WAS OBTAINED. Encounter for screening for infections with a predominantly sexual mode of transmission GC & CHLAMYDIA TEST WITH PAP SMEAR. Personal history of cervical dysplasia D ISCUSSED PREVIOUS HX OF JEREMY AND HX OF PREVIOUSLY ABNORMAL PAP TESTS. Personal history of other di seases of the female genital tract DISCUSSED LAST PAP TEST IN 2020 SHOWING ASC-H AND NEGATIVE COLPOSCOPY. Pending Test Test Name Order Date HBsAg Screen-[id number] 09/01/2023 HIV Ab/p24 Ag with Reflex-[id number] 024 RPR Qn+TP Abs-[id number] 09/01/2023 HCV Antibody-[id number] 09/01/2023 Next Appt Details Follow Up: 1 Year, Reason: Provider Name:Jania albarran, 09/06/2024 11:00:00 AM, [address], [address], [place], [address], Progress Notes * MELODY RETANAB: 5 (38 yo F)Acc No.[id number]:09/01/2023 PROGRESS NOTES Patient:?BRETT RETANA Appointment Provider:?Jania albarran M.D. :1985???Age:38 Y???Sex:Female D ate:09/01/2023 Address:[address] [place] [address], [id number] Pcp:CORBIN NIELSEN MD Subjective: * Chief Complaints: * ??? Annual FIRE PROTECTION INSPECTOR PhysicalAnnua l FIRE PROTECTION INSPECTOR Physical -* * HPI: ???New/Follow-up Patient Consult:? PAT C/O BROWN SPOTTING FOR A WEEK AFTER MENSES LAST YEAR.? HSONO AND EMB SHOWED NORMAL FINDINGS.? SHE NOW SAYS SHE MENSTRUATES AT THE BEGINNING AND THEN AT THE END OF THE MONTH.? ON REVIEWING HER MENSTRUAL CALENDAR, HER MENSES ARE AT LEAST 25 TO 26 DAYS APART.? SHE WAS REASSURED THAT THESE ARE STILL NORMAL.? IF SHE HAS SHORTER CYCLES OR IF SHE BLEEDS HEAVILY OR HAS OFF AND ON BLEEDING FOR MANY WEEKS, SHE WILL GIVE US A CALL. S/P LEEP IN 2018 FOR JEREMY 2.? THIS WAS LATER FOLLOWED BY [facility] FROM AUGUST 2020 TO SEPTEMBER 2020 WHEN COLPOSCOPY FOR ASC-H PAP TEST SHOWED A DETACHED FRAGMENT OF LSIL.? HER SUBSEQUENT PAP TESTS HAVE BEEN NEGATIVE.? HER LAST ONE IN 2022 WAS NEGATIVE AND HPV NEGATIVE. HER HAS HAD A VASECTOMY. PFIZER X 2. ???Annual:? Patient presents for annual exam ages 30-39. ?Menstrual History:?Regularity of Cycles:?regular ?Currently using control:?__ ?Satisfaction/Dissatisfaction of current method of control:?__ ?General Health Maintenance:?Current breast complaints:?no breast pain, mass, discharge, or skin changes ?Urinary problems:?patient reports no urinary health problems or bowel health problems ?Calcium intake:?takes adequate calcium via 3-4 servings of dairy daily ?Significant FIRE PROTECTION INSPECTOR problems:?no significant supervisor chemical symptoms or problems * ROS:?general:?no?chest pain.?no?palpitations.?no?headache.?no?cough.?no?shortness of breath.?no?fever.?no?unexplained weight loss.?no?nausea/vomiting.?no?change in bowel movements.?no blood in stool.?no?genitourinary complaints.?no?skin complaints.? * Medical History:? * Cooperative Education Coordinator History:?/ Para?2/2.?Sexual activity?currently sexually active, with men.?Last Pap Smear:?07/26/22 NIL, NEG HPV( Both Sides), 07/22/21 NIL, NEG HPV, 12/01/20 NIL, NEG HPV, 07/11/20 ASCUS Cannot Eclude HGSIL, NEG HRHPV, 06/18/19 NIL, NEG HPV, 04/28/18 NIL NEG HRHPV, 07/13/17 HSIL/+HR HPV, neg 16/18/45.?Mammogram:?not due per age.?Abnormal Pap Smear:?08/10/17 JEREMY II on [place], 09/26/17 JEREMY III on [place].?LMP and menses?08/10/23.?History of STD's:?none.? Control:?bilateral tubal ligation.?Bone Density:?2016.? * OB History:?Total pregnancies?.? * Surgical History:?Bilateral Tubal Ligation 2004Colposcopy [place] 2018 * Hospitalization/Major Diagno stic Procedure:?See Surgical Hx * Family History:?Mother: dece ased, lupus, asthma, diagnosed with Diabetes mellitus without mention of complication, type II or unspecified type, not stated as uncontrolled.?Father: alive.? * Social History:?Tobacco Use:?Tobacco Use/Smoking?Are you a?current smoker ?How many cigarettes a day do you smoke??5 or less ?Tobacco use other than smoking?Are you an other tobacco user??Yes ???Sexual History:?Sexual History?Had sex in the past 12 months (vaginal, oral, or anal)??Yes ?with?Men only ?Prevention strategies discussed:?Other ?Details of Sexual History?Are you sexually active??Yes ???Drugs/Alcohol:?Drugs?Have you used drugs other than those for medical reasons in the past 12 months??No ?Alcohol Screen (Audit-C)?Did you have a drink containing alcohol in the past year??No ?Points?0 ?Interpretation?Negative ???Miscellaneous:?Children: yes, 2. ?Exercise: walking. ?Home smoke detector use: yes. ?Marital status: single. ?Natural support system: yes. ?Occupation: Disabled. ?Sexually active: yes. * Medications:?TakingMycopheno late Mofetil 250 MG Capsule 1 capsule Orally Twice a day CellCept 500 MG Tablet Orally Escitalopram Oxalate 10 MG Tablet TOME DOS TABLETAS POR V A ORAL TODOS LOS D EN LA MA NIKKI Oral Lyrica 150 MG Capsule Orally Folic Acid clonazePAM 1 MG Tablet Orally Pregabalin 150 MG Capsule Oral Flovent HFA Zolpidem Tartrate 10 MG Tablet Oral Taking Mycophenolate Mofetil 250 MG Capsule 1 capsule Orally Twice a day Taking CellCept 500 MG Tablet Orally Taking Escitalopram Oxalate 10 MG Tablet TOME DOS TABLETAS POR V A ORAL TODOS LOS D EN LA MA NIKKI Oral Taking Lyrica 150 MG Capsule Orally Taking Folic Acid Taking clonazePAM 1 MG Tablet Orally Taking Pregabalin 150 MG Capsule Oral Taking Flovent HFA Taking Zolpidem Tartrate 10 MG Tablet Oral DiscontinuedtraZODone HCl 150 MG Tablet 1 tablet at bedtime Orally twice a day Aygestin 5 MG Tablet 1 tablet Orally daily Medication List reviewed and reconciled with the patientDiscontinued traZODone HCl 150 MG Tablet 1 tablet at bedtime Orally twice a day Discontinued Aygestin 5 MG Tablet 1 tablet Orally daily Medication List reviewed and reconciled with the patient * Allergies:?N.K.D.A.no[Allerg ies Verified] Objective: * Vitals:?Ht: 65 in, Wt:191lbs , BMI:31.78Index, BP:100/74mm Hg, Temp:97.3F. * Examination: ???General Exam: ?CONSTITUTIONAL:?NECK/THYROID:?RESPIRATORY:?Auscultation: clear to auscultation bilaterally, Respiratory Effort: normal.?CARDIOVASCULAR:?Auscultation: regular rate and rhythm.?BREAST, Right:?BREAST, Left:?GASTROINTESTINAL:?MUSCULOSKELETAL:?SKIN:?NEURO/PSYCH:?Genitourinary: ?EXTERNAL GENITALIA:?VAGINA:?BLADDER:?URETHRA:?CERVIX:?UTERUS:?ADNEXA:?ANUS AND PERINEUM:? Assessment: * Assessment: 1.?Encounter for gynecologic al examination (general) (routine) without abnormal findings - Z01.419?2.?Encounter for screening for infections with a predominantly sexual mode of transmission - Z11.3?3.?High risk heterosexual behavior - Z72.51?4.?Personal history of cervical dysplasia - Z87.410?5.?Personal history of other diseases of the female genital tract - Z87.42? Plan: * Treatment: ?LAB: Urinalysis (Collection Date & Time - 09/01/2023)* ? Value Reference Range ?PH 5.0 * ?PROTEIN NEG * ?GLUCOSE NEG * ?BLOOD NEG Notes: PAP TEST WITH HPV TYPING WAS OBTAINED.??2.?Encounter for screening for infections with a predominantly sexual mode of transmission?LAB: HBsAg Screen-[id number] ?LAB: HIV Ab/p24 Ag with Reflex-[id number] ?LAB: [id number] IGP, CtNg Culture 30 Plus* VAGINAL/CERVICAL:LMP>08/10/23 ?LAB: RPR Qn+TP Abs-[id number] ?LAB: HCV Antibody-[id number] Notes: GC & CHLAMYDIA TEST WITH PAP SMEAR.??3.?High risk heterosexual behavior?LAB: HBsAg Screen-[id number] ?LAB: HIV Ab/p24 Ag with Reflex-[id number] ?LAB: [id number] IGP, CtNg Culture 30 Plus* VAGINAL/CERVICAL:LMP>08/10/23 ?LAB: RPR Qn+TP Abs-[id number] ?LAB: HCV Antibody-[id number].?Personal history of cervical dysplasia? Notes: DISCUSSED PREVIOUS HX OF JEREMY AND HX OF PREVIOUSLY ABNORMAL PAP TESTS. ??5.?Personal history of other diseases of the female genital tract? Notes: DISCUSSED LAST PAP TEST IN 2020 SHOWING ASC-H AND NEGATIVE COLPOSCOPY.?? * Procedure Codes:? * Preventive Medicine:? ??YOUR PREVENTIVE WELLNESS PLAN:?Osteoporosis prevention?Calcium, D, strength training.?Cervical Cancer Screening (Pap Smear):?q 3 years with HPV screen.? ??Counseling:?Breast awareness?.?Breast self exam after periods:?.?Diet/Vitamins discussed including high doses of Vitamins A, C, E and Zinc:?.?Exercise:?.?Seatbelts:?.?Sunscreen:?.?Patient was counseled regarding the above. * Follow Up:?1 Year * Images: Billing Information: * Visit Code:? * Procedure Codes:? * Sign off status: Completed true * Appointment Provider:?Jania Sepulveda M.D. Date:?09/01/2023 Generated for Thierno muller/Lindy/Natalie on:?05/23/2024 10:28 AM EST History and Physical Notes * HPI (History of Present Illness) Category Sub-Category Detail Notes Category Not es New/Follow-up Patient Consult PAT C/O BROWN SPOTTING FOR A WEEK AFTER MENSES LAST YEAR. HSONO AND EMB SHOWED NORMAL FINDINGS. SHE NOW SAYS SHE MENSTRUATES AT THE BEGINNING AND THEN AT THE END OF THE MONTH. ON REVIEWING HER MENSTRUAL CALENDAR, HER MENSES ARE AT LEAST 25 TO 26 DAYS APART. SHE WAS REASSURED THAT THESE ARE STILL NORMAL. IF SHE HAS SHORTER CYCLES OR IF SHE BLEEDS HEAVILY OR HAS OFF AND ON BLEEDING FOR MANY WEEKS, SHE WILL GIVE US A CALL. S/P LEEP IN 2018 FOR JEREMY 2. THIS WAS LATER FOLLOWED BY [facility] FROM AUGUST 2020 TO SEPTEMBER 2020 WHEN COLPOSCOPY FOR ASC-H PAP TEST SHOWED A DETACHED FRAGMENT OF LSIL. HER SUBSEQUENT PAP TESTS HAVE BEEN NEGATIVE. HER LAST ONE IN 2022 WAS NEGATIVE AND HPV NEGATIVE. HER HAS HAD A VASECTOMY. PFIZER X 2. Annual Menstrual History: Regularity of Cycles:: regular Currently using control:: __ Satisfaction/Dissatisfaction of current method of control:: __ General Health Maintenance: Current [address] st complaints:: no breast pain, mass, discharge, or skin changes Urinary problems:: patient r eports no urinary health problems or bowel health problems Calcium intake:: takes adequ ate calcium via 3-4 servings of dairy daily Significant FIRE PROTECTION INSPECTOR problems:: n o significant supervisor chemical symptoms or problems Examination Category Sub-Category Detail Notes Category Not es General Exam CONSTITUTIONAL: General Appearan ce:: alert, in no acute distress, normal, well nourished NECK/THYROID: Thyroid:: normal size and shape Inspection/Palpation:: normal RESPIRATORY: Auscultation: clear to auscultation bilaterally, Respiratory Effort: normal CARDIOVASCULAR: Auscultation: regula r rate and rhythm GASTROINTESTINAL: Liver and Spleen:: normal Hernias:: no hernias present, no inguina l adenopathy Abdomen:: no masses, nontender, nondiste nded MUSCULOSKELETAL: Inspection/Palpation:: no clubb ing, cyanosis, or edema SKIN: Skin:: normal NEURO/PSYCH: Orientation:: time , place, pers on Mood/Affect:: normal BREAST, Right: Inspection/Palpation :: no discharge, no masses present, no nipple retraction, no skin changes, no skin dimpling, no tenderness, no lymphadenopathy, no axillary mass, no axillary tenderness BREAST, Left: Inspection/Palpation :: no discharge, no masses present, no nipple retraction, no skin changes, no skin dimpling, no tenderness, no lymphadenopathy, no axillary mass, no axillary tenderness Genitourinary EXTERNAL GENITALIA: External Genitalia:: nor mal, no lesions VAGINA: Vagina:: normal appearance, no a bnormal discharge, no lesions BLADDER: Bladder:: no mass, nontender URETHRA: Urethra:: no erythema or lesions present CERVIX: Cervix:: no lesions, nontender UTERUS: Uterus:: nontender, normal conto ur, normal mobility, normal size ADNEXA: Adnexa:: no masses, no tendernes s ANUS AND PERINEUM: Anus/Perineum:: visually norm al
--- OUTSIDE RECORDS SUMMARY | 2024-05-23 10:29 | XMS_ITS | Patient Health Record ---
Author Organization [facility] Address [address] [facility] [address] [place] [address] Care Team Providers Care Rn Residential Name Role Phone MORALES [place], [facility] Primary Care Provider Unavailab Jania Pennington Unavailable [phone] Allergies No Known Allergies Results Component Value Reference Range Notes Urinalysis Reviewed date:09/01/2023 11:00:37 AM Interpretation: Performing Lab: Notes/Report: PH 5.0 PROTEIN NEG GLUCOSE NEG BLOOD NEG [id number] IGP, CtNg Culture 30 Plus Reviewed date:09/06/2023 07:23:19 PM Interpretation: Performing Lab:[facility] [place], [address], [address], [place], Phone - [phone], Director - [facility] Notes/Report: Clinical Information:[id number] LMP / Prev Treat...LYU=[id number] Dates / Results....07/26/22 NIL No. of containers..01 ThinPrep Vial DIAGNOSIS: NEGATIVE FOR IN TRAEPITHELIAL LESION OR MALIGNANCY. Specimen adequacy: Satisfact ory for evaluation. No endocervical component is identified. Clinician provided ICD10: Z01.419 Z11.3 Z72.51 Performed by: Bryan aviles, Outside Barrel Lathe Operator (ASCP) . . Note: The Pap smear [...] amplification test detects fourteen high-risk HPV types (16,18,31,33,35,39,45,51,52,56 ,58,59,66,68) without differentiation. HPV Genotype Reflex Criteria not met, HPV Genotype not performed. Chlamydia, Nuc. Acid Amp Negative Negative Gonococcus, Nuc. Acid Amp Negative Negative PDF Report Reviewed date:09/06/2023 07:22:34 PM Interpretation: Performing Lab:[facility] [place], [address], [address], [place], Phone - [phone], Director - [facility] Notes/Report: Clinical Information:[id number] LMP / Prev Treat...DOL=[id number] Dates / Results....07/26/22 NIL No. of containers..01 ThinPrep Vial PDF Report Reviewed date:09/23/2023 12:24:15 PM Interpretation: Performing Lab:[facility] [place], [address] [place] [address], Phone - [phone], Director - [facility] Notes/Report: HCV Antibody-[id number] Reviewed date:09/23/2023 12:24:38 PM Interpretation: Performing Lab:[facility] [place], [address] [place] [address], Phone - [phone], Director - [facility] Notes/Report: Hep C Virus Ab Non Reactive Non Reactive HCV antibody alone does not differentiate between previously resolved infection and active infection. Equivocal and Reactive HCV antibody results should be followed up with an HCV RNA test to support the diagnosis of active HCV infection. RPR Qn+TP Abs-[id number] Reviewed date:09/23/2023 12:24:30 PM Interpretation: Performing Lab:[facility] [place], [address] [place] [address], Phone - [phone], Director - [facility] Notes/Report: Rapid Plasma Reagin, Quant Non Reactive NonRea<1:1 titer This test performed by RPR method. Treponema pallidum Antibodies Non Reactive Non Reactive HIV Ab/p24 Ag with Reflex-[id number] Reviewed date:09/23/2023 02:04:38 PM Interpretation: Performing Lab:[facility] [place], [address] [place] [address], Phone - [phone], Director [facility] Notes/Report: HIV Ab/p24 Ag Screen Non Reactive Non Reactive HIV Negative HIV-1/HIV-2 antibodies and HIV-1 p24 antigen were NOT detected. There is no laboratory evidence of HIV infection. HBsAg Screen-[id number] Reviewed date:09/23/2023 12:24:23 PM Interpretation: Performing Lab:[facility] [place], [address], [place], Phone - [phone], Director - Paul Notes/Report: HBsAg Screen Negative Negative Reason For Referral No Information Medications Medication SIG (Take, Route, Frequency, Duration) Notes Start Date End Date Status Pregabalin 150 MG Oral for 90 Days Active clonazePAM 1 MG Orally Acti ve Folic Acid Active CellCept 500 MG Orally Acti ve Mycophenolate Mofetil 250 MG 1 capsule O rally Twice a day Active Lyrica 150 MG Orally Active Escitalopram Oxalate 10 MG TOME DOS TABL ETAS POR V A ORAL TODOS LOS D EN LA MA NIKKI Oral for 30 Active Zolpidem Tartrate 10 MG Oral for 30 Days Active Flovent HFA 09/01/2023 Active Social History Tobacco Use: Social History [...] Are you an other tobacco user? Yes Problems Problem Type SNOMED Code ICD Code Onset Dates Problem Status W/U Status Risk Notes Problem Human papilloma virus deoxyribonucleic acid test positive, high risk on vaginal specimen (799351215879797) Cervical high risk human papillomavirus (HPV) DNA test positive (R87.810) Active confirmed Problem Mild cervical dysplasia (482351856) Mild cervical dysplasia (N87.0) Active confirmed Problem Moderate cervical dysplasia (209363842) Moderate cervical dysplasia (N87.1) Active confirmed Problem Major depression, single episode (06459665) Major depressive disorder, single episode, unspecified (F32.9) Active confirmed Problem Anxiety disorder (478751351) Anxiety disorder, unspecified (F41.9) Active confirmed Problem Systemic lupus erythematosus (30652082) Systemic lupus erythematosus, unspecified (M32.9) Active confirmed Problem Fibromyalgia (687676060) Fibromyalgia (M79.7) Active confirmed Problem Abnormal vaginal bleeding (258626411) Other specified abnormal uterine and vaginal bleeding (N93.8) Active confirmed Problem Abnormal uterine bleeding (83633021022677) Abnormal uterine and vaginal bleeding, unspecified (N93.9) Active confirmed Problem Sexual dysfunction (08218587) Sexual dysfunction, unspecified (R37) Active confirmed Problem History of dysplasia of cervix (735304865) Personal history of cervical dysplasia (Z87.410) Active confirmed Vital Signs Temperature 97.3 degrees Fahrenheit 09/01/2023 Blood pressure diastolic 74 mm Hg 09/01/2023 Height 65 in 09/01/2023 Blood pressure systolic 100 mm Hg 09/01/2023 Weight 191 lbs 09/01/2023 BMI 31.78 kg/m2 09/01/2023 Encounters Encounter Location Date Provider Diagnosis [address] [place] [address] 09/01/2023 Jania Sepulveda Encounter for gynecological examination [...] ASC-H AND NEGATIVE COLPOSCOPY. Plan Of Treatment Pending Test Test Name Order Date Urinalysis 04/28/2018 CYTOLOGY (TIMING MACHINE OPERATOR) 08/10/2017 CYTOLOGY (TIMING MACHINE OPERATOR) 07/26/2022 THIN PREP,HPV,FAISAL IF HPV+ (>29YR)(DIAG) 04/28/2018 THIN PREP,HPV,FAISAL IF HPV+ (>29YR)(SCRN) 07/13/2017 TEST, (IN HOUSE) 08/10/2017 HBsAg Screen-[id number] 09/01/2023 HIV Ab/p24 Ag with Reflex-[id number] 024 RPR Qn+TP Abs-[id number] 09/01/2023 HCV Antibody-[id number] 09/01/2023 Next Appt Details Provider Name:Jania Pettit deion, 09/06/2024 11:00:00 AM, [address], [address], [place], [address], Insurance Providers Payer Name Payer Address Payer Phone Subscriber Number Group Number Insured Name Patient Relationship to Insured Coverage Start Date Coverage End Date [facility] [address] [address] [place] [address] [id number] BRETT RETANA Self - patient is the insured Medical (General) History Medical History History ICD Code Sexual dysfunction, unspecified R37 Fibromyalgia M79.7 Systemic lupus erythematosus, unspecifie d M32.9 Major depressive disorder, single episod e, unspecified F32.9 Anxiety disorder, unspecified F41.9 Cervical high risk human papillomavirus (HPV) DNA test positive R87.810 High grade squamous intraepi thelial lesion on cytologic smear of cervix (HGSIL) R87.613 Moderate cervical dysplasia N87.1 Atypical squamous cells rodríguez ot exclude high grade squamous intraepithelial lesion on cytologic smear of cervix (ASC-H) R87.611 Abnormal uterine and vaginal bleeding, u nspecified N93.9 Other specified abnormal uterine and vag inal bleeding N93.8 Surgical History Surgery Date(Month/Year) Bilateral Tubal Ligation 2003 Colposcopy Leep 2017 Hospitalization History Reason Date(Month/Year) See Surgical Hx
--- OUTSIDE RECORDS SUMMARY | 2024-05-23 10:29 | XMS_ITS ---
Author Organization [facility] Address [address] [place] [address] Care Team Providers Care Personnel Supervisor Name Role Phone [facility] [place], [facility] Primary Care Provider Unavailab Jania Pennington Unavailable [phone] Allergies No Known Allergies Results Component Value Reference Range Notes Test, Urine Reviewed date:11/26/2022 11:59:32 AM Interpretation: Performing Lab: Notes/Report: Test, Urine Negative Urinalysis Reviewed date:11/26/2022 11:59:25 AM Interpretation: Performing Lab: Notes/Report: NITRITE Neg PH 5.0 PROTEIN Trace S.G 1.020 WBC Trace GLUCOSE Neg KETONES Neg UROBILINOGEN Neg BILIRUBIN Neg BLOOD Large REASON FOR VISIT DISCHARGE/BLOATING Medications Medication SIG (Take, Route, Frequency, Duration) Notes Start Date End Date Status Escitalopram Oxalate 10 MG TOME DOS TABL ETAS POR V A ORAL TODOS LOS D EN LA MA NIKKI Oral for 30 Active CellCept 500 MG Orally Acti ve Lyrica 150 MG Orally Active traZODone HCl 150 MG 1 tablet at bedtime Orally twice a day Active Aygestin 5 MG 1 tablet Orally deja y for 10 days 11/26/2022 Active clonazePAM 1 MG Orally Acti ve Folic Acid Active Social History Tobacco Use: Social History [...] other tobacco user? Yes Vital Signs Temperature 98.1 degrees Fahrenheit 11/27/19 23 Blood pressure systolic 104 mm Hg 11/27/19 23 Blood pressure diastolic 72 mm Hg 023 Height 65 in 11/26/2022 Weight 201 lbs 11/26/2022 BMI 33.44 kg/m2 11/26/2022 Encounters Encounter Location Date Provider Diagnosis [facility] [address] [place] [address] 11/26/2022 Jania Sepulveda Other specified abnormal uterine and vaginal bleeding N93.8 Assessments Encounter Date Diagnosis (ICD Code) Assessment Notes Treatment Notes Treatment Clinical Notes Section Notes 11/26/2022 Other specified abnormal uterine and vaginal bleeding (ICD-10 - N93.8) DISCUSSED SYMPTOMS AND PREVIOUS THOROUGH WORK UP INCLUDING HSONO AND EMB WITH NORMAL FINDINGS. 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 WILL TREAT WITH AYGESTIN 5 MG DAILY FOR 10 DAYS TO RIPEN ENDOMETRIUM AND INDUCE A PERIOD. MONITOR MENSES AND CALL IF IRREGULAR OR ABNORMAL. Plan Of Treatment Medication Medication Name Sig Start Date Stop Date Notes Aygestin 5 MG 1 tablet Orally daily for 10 days 11/26/2022 Treatment Notes Assessment Notes Other specified abnormal [place] and vaginal bleeding DISCUSSED SYMPTOMS AND PREVIOUS THOROUGH WORK UP INCLUDING HSONO AND EMB WITH NORMAL FINDINGS. 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 WILL TREAT WITH AYGESTIN 5 MG DAILY FOR 10 DAYS TO RIPEN ENDOMETRIUM AND INDUCE A PERIOD. MONITOR MENSES AND CALL IF IRREGULAR OR ABNORMAL. Next Appt Details Follow Up: prn, Reason: Provider Name:Jania albarran, 09/06/2024 11:00:00 AM, [address], [address], [place], [address], Progress Notes * MELODY RETANAB: 5 (37 yo F)Acc No.[id number]:11/26/2022 PROGRESS NOTES Patient:?BRETT RETANA Appointment Provider:?Jania albarran M.D. :1985???Age:37 Y???Sex:Female D ate:11/26/2022 Address:[address] [place] [address], [id number] Pcp:HERMAN SAM Subjective: * Chief Complaints: * ???DISCHARGE/BLOATING * HPI: ???New/Follow-up Patient Consult:? PAT UNDERWENT HSONO AND EMB FOR SPOTTING FOR A WEEK AFTER MENSES AND WORK UP WAS NORMAL. EMB SHOWED PROLIFERATIVE ENDOMETRIUM AND HSONO SHOWED NORMAL ENDOMETRIAL CAVITY. ?SHE USUALLY HAS REGULAR MONTHLY MENSES. SHE IS LATE BY A FEW DAYS. HER LMP WAS ON 10/24/22. 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 SHE SAYS SHE HAS HAD OFF AND ON BROWN SPOTTING AFTER HER PERIOD. SHE ALSO FEELS BLOATED AND HEAVY. HER OFFICE UCG IS NEGATIVE. S/P BTL. * ROS:?general:?no?chest pain.?no?palpitations.?no?headache.?no?cough.?no?shortness of breath.?no?fever.?no?unexplained weight loss.?no?nausea/vomiting.?no?change in bowel movements.?no blood in stool.?no?genitourinary complaints.?no?skin complaints.? * Medical History:? * Canvas Marker History:?/ Para?2/2.?Sexual activity?currently sexually active, with men.?Last Pap Smear:?07/26/22 NIL, NEG HPV( Both Sides), 07/22/21 NIL, NEG HPV, 12/01/20 NIL, NEG HPV, 07/11/20 ASCUS Cannot Eclude HGSIL, NEG HRHPV, 06/18/19 NIL, NEG HPV, 04/28/18 NIL NEG HRHPV, 07/13/17 HSIL/+HR HPV, neg 16/18/45.?Mammogram:?not due per age.?Abnormal Pap Smear:?08/10/17 JEREMY II on Avalon, 09/26/17 JEREMY III on Leep.?LMP and menses?5/10/23.?History of STD's:?none.? Control:?bilateral tubal ligation.?Bone Density:?2016.? * [...] yes. ?Occupation: Disabled. ?Sexually active: yes. * Medications:?TakingCellCept 500 MG Tablet Orally Escitalopram Oxalate 10 MG Tablet TOME DOS TABLETAS POR V A ORAL TODOS LOS D EN LA MA NIKKI Oral traZODone HCl 150 MG Tablet 1 tablet at bedtime Orally twice a dayLyrica 150 MG Capsule Orally Folic Acid clonazePAM 1 MG Tablet Orally Medication List reviewed and reconciled with the patientTaking CellCept 500 MG Tablet Orally Taking Escitalopram Oxalate 10 MG Tablet TOME DOS TABLETAS POR V A ORAL TODOS LOS D EN LA MA NIKKI Oral Taking traZODone HCl 150 MG Tablet 1 tablet at bedtime Orally twice a dayTaking Lyrica 150 MG Capsule Orally Taking Folic Acid Taking clonazePAM 1 MG Tablet Orally Medication List reviewed and reconciled with the patient * Allergies:?N.K.D.A.no[Allerg ies Verified] Objective: * Vitals:?Ht: 65 in, Wt:201 lb s, BMI:33.44 Index, BP:104/72 mm Hg, Temp:98.1 F. * Examination: ???Gynecological: ?EXTERNAL GENITALIA:?Normal female. No lesions, erythema or discharge.?VAGINA:?pink blount. No discharge or lesions. No cystocele or rectocele.?CERVIX:?No cervical motion tenderness, discharge or lesions.?UTERUS:? normal size, shape and consistency, normal mobility, nontender.?ADNEXA:?no masses or tenderness bilaterally.? Assessment: * Assessment: 1.?Other specified abnormal uterine and vaginal bleeding - N93.8 (Primary)? Plan: * Treatment: * Labs:? * ?Lab: Urinalysis ? Value Reference Range ?NITRITE Neg * ?PH 5.0 * ?PROTEIN Trace * ?S.G 1.020 * ?WBC Trace * ?GLUCOSE Neg * ?KETONES Neg * ?UROBILINOGEN Neg * ?BILIRUBIN Neg * ?BLOOD Large * D.BRAYAN 11/26/2022 11:06:03 A M > Blood due to spotting/brown discharge ?Lab: Test, Urine* ? Value Reference Range ? Test, Urine Negative * D.BRAYAN 11/26/2022 11:07:10 A M > * Procedure Codes:? * Follow Up:?prn * Images: Billing Information: * Visit Code:? * Procedure Codes:? * Sign off status: Completed true * Appointment Provider:?Jania Sepulveda M.D. Date:?11/26/2022 Generated for Thierno muller/Lindy/Sharsmitting on:?05/23/2024 10:28 AM EST History and Physical Notes * HPI (History of Present Illness) Category Sub-Category Detail Notes Category Not es New/Follow-up Patient Consult PAT UNDERWENT HSONO AND EMB FOR SPOTTING FOR A WEEK AFTER MENSES AND WORK UP WAS NORMAL. EMB SHOWED PROLIFERATIVE ENDOMETRIUM AND HSONO SHOWED NORMAL ENDOMETRIAL CAVITY. SHE USUALLY HAS REGULAR MONTHLY MENSES. SHE IS LATE BY A FEW DAYS. HER LMP WAS ON 10/24/22. 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 SHE SAYS SHE HAS HAD OFF AND ON BROWN SPOTTING AFTER HER PERIOD. SHE ALSO FEELS BLOATED AND HEAVY. HER OFFICE UCG IS NEGATIVE. S/P BTL. Examination Category Sub-Category Detail Notes Category Not es Gynecological CERVIX: No cervical apoorva on tenderness, discharge or lesions VAGINA: pink blount. No disch arge or lesions. No cystocele or rectocele EXTERNAL GENITALIA: Normal female. No le sions, erythema or discharge UTERUS: normal size, shape a nd consistency, normal mobility, nontender ADNEXA: no masses or tendern ess bilaterally
[2024-05-23 11:05] LABS: Basophils Percent Auto 0.5 % (0-2); Eosinophils Absolute Auto 0.1 X10*3/uL (0.0-0.4); Eosinophils Percent Auto 1.2 % (0-4); Hematocrit 42.3 % (37.0-47.0); Hemoglobin 13.1 g/dl (12.0-16.0); Imm Gran Abs Auto 0.01 X10*3/uL (0.00-0.03); Imm Gran Pct Auto 0.2 % (0.0-0.4); Lymphocytes Absolute Auto 1.5 X10*3/uL (1.2-4.9); Mean Corpuscular Hemoglobin 26.8 pg (27.0-33.0); Mean Corpuscular Volume 86.7 fL (80.0-98.0); Mean Platelet Volume 11.6 fL (9.4-12.3); Monocytes Absolute Auto 0.6 X10*3/uL (0.1-1.2); Monocytes Percent Auto 13.9 % (2-11); Neutrophils Absolute Auto 2.1 x10*3/uL (2.0-8.3); Neutrophils Percent Auto 49.2 % (45-73); Platelet Count 218 X10*3/uL (160-400); Red Blood Count 4.88 X10*6/uL (4.20-5.50); Red Cell Distribution Width 13.5 % (11.0-16.0); White Blood Count 4.2 X10*3/uL (4.8-10.8)
[2024-05-23 11:10] LABS: Appearance Urine Clear; Color Urine Yellow; Glucose Urine UA Negative (Negative); Leukocyte Esterase Urine Negative (Negative); Nitrite Urine Negative (Negative); PH 6.5 (5.0-9.0); Urine Blood Negative (Negative); Urine Ketones Negative (Negative); Urine Protein Negative (Neg-Trace)
[2024-05-23 11:13] LABS: Bacteria Urine 2+ (None Seen); Hyaline Casts Urine 0-2 /LPF (0-2); RBC Urine 0-2 /HPF (0-2); WBC Urine 0-5 /HPF (0-5)
[2024-05-23 11:41] LABS: Erythrocyte Sedimentation Rate 16 MM/HR (0-20)
[2024-05-23 11:44] LABS: Rheumatoid Factor < 13.0 IU/mL (<15.0)
[2024-05-23 11:51] LABS: Alanine Aminotransferase 24 U/L (0-31); Albumin Level 4.2 g/dL (3.5-5.0); Alkaline Phosphatase 60 U/L (39-117); Anion Gap 9 (12-20); Aspartate Amino Transferase 27 U/L (5-31); Bilirubin Total 0.3 mg/dL (0.0-1.0); Blood Urea Nitrogen 10 mg/dL (9-16); Calcium 8.8 mg/dL (8.4-10.2); Carbon Dioxide 25 mmol/L (22-29); Chloride 107 mmol/L (96-108); Estimated Glomerular Filt Rate > 60; Glucose Random 86 mg/dL (60-115); Potassium 3.9 mmol/L (3.3-5.1); Sodium 137 mmol/L (135-145)
[2024-05-23 12:01] LABS: HBS Num1 1.01 mIU/mL (0-7.99); HBc Num1 0.09 S/CO (0.00-0.79); Hepatitis A Antibody IgM 0.19 Index (0-0.79); Hepatitis B Core Antibody Nonreactive (Nonreactive); Hepatitis B Surface Antigen Negative (Negative); ~HepC Num1 0.09 S/CO (0.00-0.79); ~Hepatitis A Antibody IgM Nonreactive (Nonreactive); ~Hepatitis B Surface Antibody NONREACTIVE (Nonreactive); ~Hepatitis C Antibody Nonreactive (Nonreactive)
[2024-05-23 12:21] LABS: Creatinine Urine 118.91 mg/dL; Total Protein Urine Random < 7 mg/dL (<12)
[2024-05-24 12:59] LABS: Complement C3 141 mg/dL (83-193)
[2024-05-25 10:49] LABS: Prot Elec - Alpha1 0.3 g/dL (0.2-0.3); Prot Elec - Alpha2 0.8 g/dL (0.5-0.9); Prot Elec - Beta 1 0.6 g/dL (0.4-0.6); Prot Elec - Beta 2 0.6 g/dL (0.2-0.5); Prot Elec - Gamma 1.1 g/dL (0.8-1.7); Prot Elec - Total Protein 7.3 g/dL (6.1-8.1)
[2024-05-25 16:33] LABS: Anti DNA DS Antibody 17 IU/mL; Antibody to SS-A Antigen <1.0 NEG AI (<1.0 NEG); Antibody to SS-B Antigen <1.0 NEG AI (<1.0 NEG); SM/Ribonucleoprotein Ab <1.0 NEG AI (<1.0 NEG); Smith Protein <1.0 NEG AI (<1.0 NEG)
[2024-05-25 20:54] LABS: Cyclic Citrullinated Peptide <16 UNITS
[2024-05-26 15:44] LABS: TS Negative Control Passed; TS Panel A 0; TS Panel B 0; TS Positive Control Passed; TSpotTB Negative (Negative)
[2024-05-29 13:09] LABS: IgA 588 mg/dL (47-310); IgG 1253 mg/dL (600-1640); IgM 62 mg/dL (50-300)
[2024-05-29 14:43] LABS: DNAds, Crithidia Antibody Positive (Negative)
== END 2024-05-23 09:04 | disposition home or self-care (01) ==
LOC: HO.LAB 09:03
PROVIDERS: PCP Student in an Organized Health Care Education/Training Program; Visit Provider Student in an Organized Health Care Education/Training Program
DX: M32.19 Other organ or system involvement in systemic lupus erythematosus (principal); Z11.7 Encounter for testing for latent tuberculosis infection; M25.50 Pain in unspecified joint; Z11.59 Encounter for screening for other viral diseases
CPT/HCPCS: 36415; 80053; 81001; 82570; 82784; 84156; 84165; 85025; 85652; 86140; 86160; 86200; 86225; 86235; 86255; 86334; 86431; 86481; 86704; 86706; 86709; 86803; 87340

== ENCOUNTER 2024-05-31 09:53 | Outpatient (AMB) | payer OTHER, SELFPAY ==
--- OUTSIDE RECORDS SUMMARY | 2024-05-31 09:57 | XMS_ITS | Encounter Summary ---
Author Organization [facility] Address [address] [place] [address] Phone Care Team Providers Care Extrusion Die Template Maker Name Role Phone Deena Sam MD Primary Care Provider Reason for Visit * Reason Comments Med Refill Encounter Details Date Type Department Care Team (Late st Contact Info) Description 12/10/2022 Refill [facility] [address] [place] [phone] Merrick Meza MD Social History Tobacco Use [...] on filedocumented in this encounter Care Teams Extrusion Die Template Maker Relationship Specialty Start Date End Date Deena Sam MD [address] [place] [address] [address] [place] [address] PCP - General Internal Medicine 02/16/21 documented as of this encounter
--- OUTSIDE RECORDS SUMMARY | 2024-05-31 09:57 | XMS_ITS | Clinical Summary ---
Author Organization [facility] Address [address] [place] [address] Care Team Providers Care Honey Producer Name Role Phone Jose Azevedo MD Primary Care Provider [phone] Allergies No known active allergies Medications Medication [...] Comments OTHER SURGICAL HISTORY 2019 Left PROCEDURE: OH EXC CYST/ADENOMA THYROID/TRANSECTION ISTHMUS; COMMENT: left sidec thyroid cyst removed KNEE SURGERY 2021 Left PROCEDURE: HISTORICAL KNEE SURGERY; COMMENT: done at [facility] TUBAL LIGATION 2003 Bilateral PROCEDURE: HISTORICAL TUBAL [...] PM EST Office Visit Internal Medicine - [address] [place] [phone] Jose Azevedo MD [address] [place] [address] Health Maintenance Due Date Last Done Comments [...] Recently Relevant to Health Maintenance Care Teams Honey Producer Relationship Specialty Start Date End Date Jose Azevedo MD [address] [place] [address] PCP - General 10/05/22
--- OUTSIDE RECORDS SUMMARY | 2024-05-31 09:57 | XMS_ITS | Clinical Summary ---
Author Organization [facility] Address [address] [facility] [address] [place] [address] Phone Care Team Providers Care Bit Shaver Name Role Phone Deena Sam MD Primary [...] which is being evaluated again by the mechanical engineering teacher and both he and I have requested [...] Courtney Hill M.D., Director Clinical Immunology Laboratory [id number] Normal: Negative at 1:10 Anti-[place] DNA Antibodies detected on Crithidia Luciliae Substrate [...] other rheumatic diseases or in drug-induced SLE. Phiq-umpyfz-ocoiayft DNA antibodies are usually detected in SLE [...] Courtney Hill M.D., Director Clinical Immunology Laboratory [id number] Normal: Negative at 1:10 Anti-[place] DNA Antibodies detected on Crithidia Luciliae Substrate [...] other rheumatic diseases or in drug-induced SLE. Bkan-mybzek-slbjknny DNA antibodies are usually detected in SLE [...] Phone Billing Address Personal/Family Self [phone] ([id number]) [facility] ([id number]) Care Teams Bit Shaver Relationship Specialty Start Date End Date Deena Sam MD [address] [place] [address] [address] [place] [address] PCP - General Internal Medicine 02/16/21
--- NOTE | 2024-05-31 09:58 | HO.NEPHOV ---
Vital Signs 05/31/24 10:03 Height 5 ft 5 in Weight 190 lb 6 oz BMI 31.7 BP 100/70 Blood Pressure Location Lt brachial Position Sitting Intake Visit Reasons: 6 mon follow up/ conf Recruit Instructor Required: Yes Recruit Instructor Language: Amalgamator Services: Recruit Instructor Offered & Declined ([facility] lang interpreter services refused) Accompanied by: Spouse Allergies No Known Allergies Allergy (Verified 05/31/24 10:01) HPI Comments Details: Stephanie was seen in follow-up of history proteinuria on a backdrop of lupus erythematosus. She is on mycophenolate. She has not been getting any cutaneous lesions now. She denies any urinary infections, fever, frothy urine, hematuria. She is not taking any excessive nonsteroidal inflammatories. She tries to maintain good hydration. She has no pedal edema. Her blood pressure has been at goal. [facility] Medical History Long-term use of immunosuppressant medication Fibromyalgia Lupus (systemic lupus erythematosus) Surgical History History of tubal ligation History of surgery on lower extremity History of thyroid surgery Family History Mother Diabetes Lupus Brother Diabetes Social History Household Members: Significant Other and Children Alcohol intake: never Patient Tobacco Use Status: Former Tobacco user Current occupational status: disabled Review of Systems Const All systems reviewed & are unremarkable except as noted in HPI and below Physical Exam Vital Signs: Last Vital Signs BP 100/70 05/31/24 10:03 BMI result Body Mass Index 31.7 Const General: comfortable and no acute distress Orientation/consciousness: patient oriented x3 HEENT Head: Yes normocephalic Mouth: Normal oral and palatal mucosa present Eyes EOM: EOMs intact bilaterally Neck Neck: Yes supple Resp Auscultation: clear to auscultation bilaterally Cardio Jugular venous distension: no JVD Rate: regular rate GI Palpation (GI): Soft to palpation Auscultation: normal bowel sounds General: Yes no CVA tenderness Back/Spine/Pelvis Back: no CVA tenderness Skin General skin exam: no rashes or lesions noted Neuro General: patient oriented x3 and moves all extremities Extrem General: Yes no pedal edema Results Reviewed Nephrology Results: Hgb 13.1 g/dl (12.0-16.0) 05/23/24 WBC 4.2 X10*3/uL (4.8-10.8) L 05/23/24 Plt Count 218 X10*3/uL (160-400) 05/23/24 Sodium 137 mmol/L (135-145) 05/23/24 Potassium 3.9 mmol/L (3.3-5.1) 05/23/24 Chloride 107 mmol/L (96-108) 05/23/24 Carbon Dioxide 25 mmol/L (22-29) 05/23/24 BUN 10 mg/dL (9-16) 05/23/24 Creatinine 0.74 mg/dL (0.5-1.4) 05/23/24 Calcium 8.8 mg/dL (8.4-10.2) 05/23/24 Urine Protein Negative mg/dL (Neg-Trace) 05/23/24 Urine Creatinine 118.91 mg/dL 05/23/24 Protein/Creatinin Ratio TNP 05/23/24 Assessment & Plan Assessment & Plan (1) Lupus (systemic lupus erythematosus): Comment: On Cellcept and HCQ over 10 years dx 2006 (skin biopsy-proven, arthralgias, rashes, scarring alopecia, proteinuria, pericarditis) Code(s): M32.9 - Systemic lupus erythematosus, unspecified Category: Medical Qualifiers: Systemic lupus erythematosus type: other Systemic lupus erythematosus organ involvement: other Qualified Code(s): M32.19 - Other organ or system involvement in systemic lupus erythematosus Zuleyka Brown has lupus and has been on CellCept. Her cutaneous lesions are gone now. She does not have any edema or frothy urine. Her blood pressure is at goal. Her renal functions are stable. Her urine protein, complement level were normal. Her anti DNA antibody was 17. If she develop proteinuria, I will consider doing a renal biopsy and initiate her on SHAYAN-inhibitor. She has family history of lupus ( Mom had lupus-) . I did not make any medication changes today. All questions were answered. Follow-up appointment given Orders: Orders Complete Blood Count Auto Diff 6 Months - Other organ or system involvement in systemic lupus erythematosus Electrolytes 6 Months - Other organ or system involvement in systemic lupus erythematosus UA and rflx microscopic 6 Months M3. - Other organ or system involvement in systemic lupus erythematosus Protein Creatinine Ratio, Ur 6 Months M3. - Other organ or system involvement in systemic lupus erythematosus Creatinine 6 Months M3. - Other organ or system involvement in systemic lupus erythematosus Blood Urea Nitrogen 6 Months M3. - Other organ or system involvement in systemic lupus erythematosus Medications: Refilled mycophenolate mofetil 500 mg PO BID 180 tabs 4RF Coding Level of Care Code Est Pt Level 4 (99736) Diagnoses Other systemic lupus erythematosus with other organ involvement Systemic lupus erythematosus type: other Systemic lupus erythematosus organ involvement: other
[2024-05-31 10:03] VITALS: BP 100/70; BMI 31.7
== END 2024-05-31 10:24 | disposition home or self-care (01) ==
LOC: HO.HKAS 09:53
PROVIDERS: PCP Student in an Organized Health Care Education/Training Program; Visit Provider Internal Medicine Nephrology
DX: M32.19 Other organ or system involvement in systemic lupus erythematosus (principal)
CPT/HCPCS: 99214

== ENCOUNTER → 2024-05-31 09:53 | Outpatient (BNVA) | payer OTHER, SELFPAY | PROVIDERS: PCP Student in an Organized Health Care Education/Training Program; Visit Provider Internal Medicine Nephrology | DX: M32.19 Other organ or system involvement in systemic lupus erythematosus (principal) | CPT/HCPCS: 99212 ==

== ENCOUNTER 2024-08-22 08:43 | Outpatient (AMB) | payer OTHER, SELFPAY ==
--- NOTE | 2024-08-22 08:58 | A.OFFVIS_ITS ---
Vital Signs 08/22/24 09:04 Height 5 ft 5 in Weight 190 lb 4.143 oz BMI 31.7 BP 98/80 Blood Pressure Location Lt brachial Position Sitting Pulse 55 Pulse Source Pulse Oximeter Pulse Oximetry (%) 95 Oxygen Delivery Method Room Air Intake Visit Reasons: SLE Intake Note: Patient presents for SLE. Accompanied by: Self / Same As Patient Allergies No Known Allergies Allergy (Verified 05/31/24 10:01) HPI HPI SLE: Details: She is having hair loss, 3 days of headache, pain in shoulders, right wrist and superior right knee. Hard to go down stairs and bend knees. +faitgue +easily bruising. Has an appt with Hematology next month. Denies pleurisy or dyspnea, oral ulces, urinary symptoms, dry mouth or dry eyes, raynauds. +palpitations for 3 weeks. She reports compliance with HCQ and MMF. She has a mass behind her left ear that she has had for few years. She has seen ENT in the past when it was smaller. This masses painful and causing pain to the left side of her face. She has had prior imaging done in the past. Right ankle pain for 3 years. She was prescribed diclofenac gel, which she uses without relief. [facility] Medical History Long-term use of immunosuppressant medication Fibromyalgia Lupus (systemic lupus erythematosus) Surgical History History of tubal ligation History of surgery on lower extremity History of thyroid surgery Family History Mother Diabetes Lupus Brother Diabetes Social History Household Members: Significant Other and Children Alcohol intake: never Patient Tobacco Use Status: Former Tobacco user Current occupational status: disabled Review of Systems Const All systems reviewed & are unremarkable except as noted in HPI and below Physical Exam Vital Signs: Last Vital Signs Pulse 55 08/22/24 09:04 BP 98/80 08/22/24 09:04 Pulse Ox 95 08/22/24 09:04 Oxygen Delivery Method Room Air 08/22/24 09:04 BMI result Body Mass Index 31.7 Const Other: General: Comfortable CVS: RRR Respiratory: clear to auscultation bilaterally. Good respiratory effort Skin: Mass behind left ear the size of a quarter, without fluctuance, hard. MSK: No synovitis. Tender to palpate bilateral shoulders. Bilateral shoulder abduction is 160 degrees with normal internal and external rotation. Tender to palpate bilateral knees with crepitus palpated. She has suprapatellar effusion right knee with tenderness. Knee flexion 90 degrees with pain. Tender right Achilles tendon at the attachment of the calcaneus. No ankle tenderness. No MTP tenderness. Assessment & Plan Assessment & Plan (1) Lupus (systemic lupus erythematosus): Comment: She is experiencing hair loss, headaches, fatigue, easily bruising, palpitations and bilateral knee pain. She has growth of mass behind her year, which has previously been followed by ENT. She reports that the mass is painful causing pain to the left side of her face. I recommend that she follow-up with PCP for consideration of repeat imaging and ENT referral for possible Biopsy. Rheumatology history: On Cellcept and HCQ over 10 years. Dx 2007 (skin biopsy- proven, arthralgias, rashes, scarring alopecia, proteinuria, pericarditis) Code(s): M32.9 - Systemic lupus erythematosus, unspecified Category: Medical Qualifiers: Systemic lupus erythematosus organ involvement: other Systemic lupus erythematosus type: other Qualified Code(s): M32.19 - Other organ or system involvement in systemic lupus erythematosus Plan: labs for SLE and drug monitoring ordered Continue HCQ 400mg daily. Requesting last eye exam for HCQ surveillance Continue MMF 500mg BID. Will consider increasing MMF 1000mg BID if labs reveal SLE activity Patient will discuss growth of mass behind left ear with PCP for repeat imaging and ENT referral. In the past she saw ENT and had imaging done without etiology identified for mass. RTC 3 months (2) Bilateral knee pain: Comment: R suprapatellar effusion present. Chronic knee pain. Code(s): M25.561 - Pain in right knee; M25.562 - Pain in left knee Category: Medical Qualifiers: Chronicity: chronic Qualified Code(s): M25.561 - Pain in right knee; M25.562 - Pain in left knee; G89.29 - Other chronic pain Plan: Bilateral x-rays knee ordered She may benefit from NSAID and PT. I will await x-ray results. RTC 3 months (3) Achilles tendinosis of right lower extremity: Code(s): M67.88 - Other specified disorders of synovium and tendon, other site Category: Medical Plan: Brace prescribed PT orderd RTC 3 months Orders: Orders Anti DNA DS Antibody 08/22/24 M32.19 - Other organ or system involvement in systemic lupus erythematosus UA w Microscopic 08/22/24 M32.19 - Other organ or system involvement in systemic lupus erythematosus Alanine Aminotransferase 08/22/24 Z79.60 - intermediate card tender (current) use of unspecified immunomodulators and immunosuppressants Creatinine 08/22/24 Z79.60 - intermediate card tender (current) use of unspecified immunomodulators and immunosuppressants Complement C3 08/22/24 M32.19 - Other organ or system involvement in systemic lupus erythematosus Complement C4 08/22/24 M32.19 - Other organ or system involvement in systemic lupus erythematosus Protein Creatinine Ratio, Ur 08/22/24 M32.19 - Other organ or system involvement in systemic lupus erythematosus Complete Blood Count Auto Diff 08/22/24 Z79.60 - intermediate card tender (current) use of unspecified immunomodulators and immunosuppressants Aspartate Amino Transferase 08/22/24 Z79.60 - intermediate card tender (current) use of unspecified immunomodulators and immunosuppressants XR knee RT 2V 08/22/24 M25.561 - Pain in right knee, M25.562 - Pain in left knee XR knee LT 2V 08/22/24 M25.561 - Pain in right knee, M25.562 - Pain in left knee PT Evaluation and Treatment 08/22/24 M67.88 - Other specified disorders of synovium and tendon, other site Medications: New leg brace (Ankle Brace) As directed R ankle support brace or compression sleeve Dx: Achilles tendonitis 1 ea 0RF Coding Level of Care Code Est Pt Level 4 (88169) Complex EM visit Add On G2211 Diagnoses Other systemic lupus erythematosus with other organ involvement M32.19 Systemic lupus erythematosus organ involvement: other Systemic lupus erythematosus type: other Chronic pain of both knees M25.561; M25.562; G89.29 Chronicity: chronic Achilles tendinosis of right lower extremity M67.88
--- OUTSIDE RECORDS SUMMARY | 2024-08-22 08:59 | XMS_ITS | Clinical Summary ---
Author Organization [facility] Address [address] [facility] [address] [place] [address] Phone Care Team Providers Care High School Principal Name Role Phone Deena Sam MD Primary [...] which is being evaluated again by the engineer systems and both he and I have requested [...] Courtney Hill M.D., Director Clinical Immunology Laboratory [id number] Normal: Negative at 1:10 Anti-eklutna DNA Antibodies detected on Crithidia Luciliae Substrate [...] other rheumatic diseases or in drug-induced SLE. Wjqr-ouyozq-hmbjjofq DNA antibodies are usually detected in SLE [...] Courtney Hill M.D., Director Clinical Immunology Laboratory [id number] Normal: Negative at 1:10 Anti-eklutna DNA Antibodies detected on Crithidia Luciliae Substrate [...] other rheumatic diseases or in drug-induced SLE. Nyvv-lqgbsi-dampsedy DNA antibodies are usually detected in SLE [...] 0.02 0.00 - 0.05 K/uL Final Immunizations Immunization Administration Dates Next Due Influenza, Quadrivalent, Preservative [...] Health Maintenance Due Date Last Done Comments Hepatitis B Vaccine (1 of 3 - 19+ 3-dose series) 02/13 Pneumococcal Vaccine: Peds ( 0 to 5 Years) and At-Risk Patients (6 to 49 Years) (1 of 2 - PCV) 02/14/2004 Influenza Vaccine (Season Ended) 2024 02/18/[address] [place] [address] ([id number]) [facility] ([id number]) Care Teams High School Principal Relationship Specialty Start Date End Date Deena Sam MD [address] [place] [address] [address] [place] [address] PCP - General Internal Medicine 02/16/21
--- OUTSIDE RECORDS SUMMARY | 2024-08-22 08:59 | XMS_ITS ---
Author Organization [facility] Address [address] [facility] [address] [place] [address] Care Team Providers Care Refractory Bricklayer Name Role Phone [facility] [place] Primary Care Provider Unavailab Jania Pennington Unavailable [phone] Allergies No Known Allergies Results Component Value Reference Range Notes Urinalysis Reviewed date:09/01/2023 11:00:37 AM Interpretation: Performing Lab: Notes/Report: PH 5.0 PROTEIN NEG GLUCOSE NEG BLOOD NEG [id number] IGP, CtNg Culture 30 Plus Reviewed date:09/06/2023 07:23:19 PM Interpretation: Performing Lab:[facility] [place], [address], [address], [place], Phone - [phone], Director - [facility] Notes/Report: Clinical Information:[id number] LMP / Prev Treat...[id number]=[id number] Dates / Results....07/26/22 NIL No. of containers..01 ThinPrep Vial DIAGNOSIS: NEGATIVE FOR IN TRAEPITHELIAL LESION OR MALIGNANCY. Specimen adequacy: Satisfact ory for evaluation. No endocervical component is identified. Clinician provided ICD10: Z01.419 Z11.3 Z72.51 Performed by: Bryan aviles, Octave Board Assembler (ASCP) . . Note: The Pap smear [...] [address], [address], [place], Phone - [phone], Director - [facility] Notes/Report: Clinical Information:[id number] LMP / Prev Treat...[id number]=[id number] Dates / Results....07/26/22 NIL No. 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, Annual CHEESE PROCESSOR Physical -* Medications Medication SIG (Take, Route, [...] 09/01/2023 Encounters Encounter Location Date Provider Diagnosis [address] [place] [address] 09/01/2023 Jania Sepulveda Encounter for gynecological examination [...] Pending Test Test Name Order Date HBsAg Screen-[id number] 09/01/2023 HIV Ab/p24 Ag with Reflex-[id number] 024 RPR Qn+TP Abs-[id number] 09/01/2023 HCV Antibody-[id number] 09/01/2023 Next Appt Details Follow Up: 1 Year, Reason: Provider Name:Jania albarran, 09/06/2024 11:00:00 AM, [address], [address], [place], [address], Progress Notes * MELODY RETANAB: 5 (38 yo F)Acc No.[id number]:09/01/2023 PROGRESS NOTES Patient:?BRETT RETANA Appointment Provider:?Jania albarran M.D. :1985???Age:38 Y???Sex:Female D ate:09/01/2023 Address:[address] [place] [address], [facility] Pcp:CORBIN NIELSEN MD Subjective: * Chief Complaints: * ??? Annual CHEESE PROCESSOR PhysicalAnnua l CHEESE PROCESSOR Physical -* * HPI: ???New/Follow-up Patient Consult:? [...] via 3-4 servings of dairy daily ?Significant CHEESE PROCESSOR problems:?no significant prior authorization nurse symptoms or problems * ROS:?general:?no?chest pain.?no?palpitations.?no?headache.?no?cough.?no?shortness of breath.?no?fever.?no?unexplained weight loss.?no?nausea/vomiting.?no?change in bowel movements.?no blood in stool.?no?genitourinary complaints.?no?skin complaints.? * Medical History:? 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 * Examination: ???General Exam: ?CONSTITUTIONAL:?General Appearance:?alert, in no acute distress, normal, well nourished ?NECK/THYROID:?Inspection/Palpation:?normal ?Thyroid:?normal size and shape ?RESPIRATORY:?Auscultation: clear to auscultation bilaterally, Respiratory Effort: normal.?CARDIOVASCULAR:?Auscultation: regular rate and rhythm.?BREAST, Right:?Inspection/Palpation:?no discharge, no masses present, no nipple retraction, no skin changes, no skin dimpling, no tenderness, no lymphadenopathy, no axillary mass, no axillary tenderness ?BREAST, Left:?Inspection/Palpation:?no discharge, no masses present, no nipple retraction, no skin changes, no skin dimpling, no tenderness, no lymphadenopathy, no axillary mass, no axillary tenderness ?GASTROINTESTINAL:?Abdomen:?no masses, nontender, nondistended ?Liver and Spleen:?normal ?Hernias:?no hernias present, no inguinal adenopathy ?MUSCULOSKELETAL:?Inspection/Palpation:?no clubbing, cyanosis, or edema ?SKIN:?Skin:?normal ?NEURO/PSYCH:?Orientation:?time , place, person ?Mood/Affect:?normal?Genitourinary: ?EXTERNAL GENITALIA:?External Genitalia:?normal, no lesions ?VAGINA:?Vagina:?normal appearance, no abnormal discharge, no lesions ?BLADDER:?Bladder:?no mass, nontender ?URETHRA:?Urethra:?no erythema or lesions present ?CERVIX:?Cervix:?no lesions, nontender ?UTERUS:?Uterus:?nontender, normal contour, normal mobility, normal size ?ADNEXA:?Adnexa:?no masses, no tenderness ?ANUS AND PERINEUM:?Anus/Perineum:?visually normal??? Assessment: * Assessment: 1.?Encounter for gynecologic al [...] a predominantly sexual mode of transmission?LAB: HBsAg Screen-[id number] ?LAB: HIV Ab/p24 Ag with Reflex-[id number] ?LAB: [id number] IGP, CtNg Culture 30 Plus* VAGINAL/CERVICAL:LMP>08/10/23 ?LAB: RPR Qn+TP Abs-[id number] ?LAB: HCV Antibody-[id number] Notes: GC & CHLAMYDIA TEST WITH PAP SMEAR.??3.?High risk heterosexual behavior?LAB: HBsAg Screen-[id number] ?LAB: HIV Ab/p24 Ag with Reflex-[id number] ?LAB: [id number] IGP, CtNg Culture 30 Plus* VAGINAL/CERVICAL:LMP>08/10/23 ?LAB: RPR Qn+TP Abs-[id number] ?LAB: HCV Antibody-[id number].?Personal history of cervical dysplasia? Notes: DISCUSSED PREVIOUS [...] Provider:?Jania Sepulveda M.D. Date:?09/01/2023 Generated for Thierno muller/Lindy/Marioitting on:?08/22/2024 08:59 AM EDT History and Physical Notes * HPI (History [...] via 3-4 servings of dairy daily Significant CHEESE PROCESSOR problems:: n o significant prior authorization nurse symptoms or problems Examination Category Sub-Category Detail Notes Category Not es General Exam CONSTITUTIONAL: General Appearan ce:: alert, in no acute distress, normal, well nourished NECK/THYROID: Thyroid:: normal size and shape Inspection/Palpation:: normal RESPIRATORY: Auscultation: clear to auscultation bilaterally, Respiratory Effort: normal CARDIOVASCULAR: Auscultation: regula r rate and rhythm GASTROINTESTINAL: Hernias:: no hernias present, no inguinal adenopathy Liver and Spleen:: normal Abdomen:: no masses, nontender, nondiste nded MUSCULOSKELETAL: Inspection/Palpation:: no clubb ing, cyanosis, or edema SKIN: Skin:: normal NEURO/PSYCH: Mood/Affect:: normal Orientation:: time , place, person BREAST, Right: Inspection/Palpation :: no discharge, no [...]
--- OUTSIDE RECORDS SUMMARY | 2024-08-22 08:59 | XMS_ITS | Clinical Summary ---
Author Organization [facility] Address [address] [place] [address] Phone Care Team Providers Care Sofa Inspector Name Role Phone Jose Azevedo MD Primary Care Provider [phone] Allergies No known active allergies Medications albuterol HFA (PROAIR HFA ; PROVENTIL HFA ; VENTOLIN HFA) 90 mcg/actuation inhaler Inhale 2 Puffs into the lungs every 4 hours as needed for Wheezing. 4 Active clonazePAM (KlonoPIN) 1 mg tablet Take 1 Tablet by mouth as needed. Active fluticasone HFA (FLOVENT HFA) 110 mcg/actuation inhaler Inhale 1 Puff into the lungs 2 times daily. Active hydroxychloroqu ine (PLAQUENIL) 200 mg tablet Take 1 Tablet by mouth 2 times daily. Active mycophenolate (CELLCEPT) 500 mg tablet Take 1 Tablet by mouth 2 times daily. 4 Active pregabalin (LYRICA) 150 mg capsule Take 1 Capsule by mouth 2 times daily. 4 Active zolpidem (AMBIEN) 10 mg tablet Take 1 Tablet by mouth at bedtime. Active folic acid (FOLVITE) 1 mg tablet Take 1 tablet (1 mg total) by mouth 1 (one) time each day. 90 tablet 1 5 Active diclofenac (VOLTAREN) 1 % topical gel Apply 2 g topically 4 (four) times a day if needed (pain). 1 each 3 5 Active diclofenac (VOLTAREN) 1 % topical gel Apply 4 g topically 2 times daily. 4 08/03/19 25 Discontinu ed(Reorder ) Active Problems Problem Noted Date Diagnosed Date Anxiety and depression 08/02/2024 Mild intermittent asthma without complication Obesity (BMI 30-39.9) 06/21/2023 Lupus (systemic lupus erythe matosus) ([facility] V24, [facility] V28) 01/04/2023 Fibromyalgia 01/04/2023 Encounters Date Type Department Care Team Description 08/02/2024 11:30 AM EDT Office Visit Internal Medicine - [address] [place] [address] Jose Azevedo MD Encounter for annual physical exam (Primary Dx); Mild intermittent asthma without complication; Fibromyalgia; Systemic lupus erythematosus, unspecified SLE type, unspecified organ involvement status ([facility] V24, [facility] V28); Obesity (BMI 30-39.9); Acute pain of right shoulder; Achilles tendinitis of right lower extremity; Easy bruisability; Anxiety and depression; Other fatigue; Encounter for lipid screening for cardiovascular disease; Vitamin D deficiency; Other abnormal glucose from Last 3 Months Immunizations Name Administration Dates Next Due Influenza Quadravalent, MDCK , 0.5ml, preservative free (Flucelvax) 6mo and older 05/11/2023 Tdap Tetanus diptheria acell ular pertussis (Boostrix; Adacel) 7yo and older 05/11/2023 Surgical History Surgery Date Site/Laterality Comments OTHER SURGICAL HISTORY 2019 Left PROCEDURE: [place] EXC CYST/ADENOMA THYROID/TRANSECTION ISTHMUS; COMMENT: left sidec thyroid cyst removed KNEE SURGERY 2021 Left PROCEDURE: HISTORICAL KNEE SURGERY; COMMENT: done at [facility] TUBAL LIGATION 2003 Bilateral PROCEDURE: HISTORICAL [...] drink = 0.6 oz pur e alcohol) Housing Instability Answer Date Recorde d Are you worried that in the next 2 months you may not have stable housing? No 08/02/2024 Food Access & Nutrition Answer Date Rec orded Do you have access to a vari ety of food including fruits and vegetables? Yes 08/02/2024 Access to Healthcare Answer Date Record ed Within the last 3 months, ho w many times did you visit the emergency department for your medical care? 0 08/02/2024 Financial Risk Answer Date Recorded How hard is it for you to pa y for the very basics like food, housing, medical care, and air conditioning / heating? Not very hard 08/02/2024 Food Risk Answer Date Recorded Within the past 12 months we worried whether our food would run out before we got money to buy more. Never true 08/02/2024 Within the past 12 months th e food we bought just didn't last and we didn't have money to get more. Never true 08/02/2024 Living Situation Answer Date Recorded What is your living situation? 0 08/02/2024 Education Answer Date Recorded What is the highest level of school you have completed or the highest degree you have received? High school graduate 08/02/2024 Comments Unknown Sex and Gender Information Value Date Recorded Sex Assigned at Female 06/18/2024 10:56 AM EST Legal Sex Female 1:45 AM EST Gender Identity Female 06/18/2024 10:56 AM EST Sexual Orientation Not on file Obstetrics History Last Filed Vital Signs Vital Sign Reading Time Taken Comments Blood Pressure 132/80 08/02/2024 11:35 AM EDT Pulse 66 08/02/2024 11:35 AM EDT Temperature - - Respiratory Rate - - Oxygen Saturation 99% 08/02/2024 11:35 AM EDT Inhaled Oxygen Concentration - - Weight 85.7 kg (189 lb) 08/02/2024 11:35 AM EDT Height 165.1 cm (5' 5 ) 01/02/2024 9:06 AM EDT Body Mass Index 31.45 01/02/2024 9:06 AM EDT Plan of Treatment Upcoming Encounters Date Type Department Care Team (Late st Contact Info) Description 09/21/2024 8:30 AM EDT Office Visit [facility] Hematology Oncology [address] [place] [id number] Marie Ocampo PA [address] [place] [address] Health Maintenance Due Date Last Done Comments Hepatitis B Vaccines (1 of 3 - 19+ 3-dose series) 02/14/2004 Pneumococcal Vaccine: Pediatrics (0 to 5 Years) and At-Risk Patients (6 to 64 Years) (1 of 2 - PCV) 02/14/2004 Cervical Cancer Screening: P ap Smear 2006 HIV Screening 03/28/2022 Hepatitis C Screening 03/28/2022 COVID-19 Vaccine (2023-2 5 season) 2023 03/21/2021, 08/16/2020, 07/26/2020 Influenza Vaccine (Season Ended) 2024 05/11/2023, 02/18/2020 Depression Screening 06/18/2025 06/18/2024 Social Influencers of Health Screening 08/02/2025 08/02/2024 Cholesterol Screening (Lipid Panel) 01/01/2028 12/31/2022 DTaP,Tdap,and [...] patient's age to complete this topic Meningococcal B Vaccine Aged Out No l onger eligible based on patient's age to complete this topic RSV Immunization Patients Under 20 months Aged Out No longer eligible [...] 133 0 - 200 mg/dL HDL 43 >=40 mg/dL LDL Cholesterol 64 0 - 100 mg/dL Blood Venous blood specimen / Unknown [facility] Provider LAB BLOOD ORDERABLES Melita l Result from Last 3 Months or Most Recently Relevant to Health Maintenance Insurance [facility] Member Subscriber Plan / Payer (Ef fective 2024-Present) Name:Stephanie Silverman Relation to Subscriber:Self Name:Stephanie Silverman Payer ID:[id number] Group ID:Not on file Type:Not on file Address: [address] [facility] [place] [address] Care Teams Sofa Inspector Relationship Specialty Start Date End Date Jose Azevedo MD [address] [place] [id number] PCP - General 10/05/22
--- OUTSIDE RECORDS SUMMARY | 2024-08-22 08:59 | XMS_ITS | Encounter Summary ---
Author Organization [facility] Address [address] [place] [address] Phone Care Team Providers Care Tin Recovery Worker Name Role Phone Deena Sam MD Primary Care Provider Reason for Visit * Reason Comments Med Refill Encounter Details Date Type Department Care Team (Late st Contact Info) Description 12/10/2022 Refill [facility] [address] [place] [id number] Merrick Meza MD Social History Tobacco Use [...] on filedocumented in this encounter Care Teams Tin Recovery Worker Relationship Specialty Start Date End Date Deena Sam MD [address] [place] [address] [address] [place] [address] PCP - General Internal Medicine 02/16/21 documented as of this encounter
--- OUTSIDE RECORDS SUMMARY | 2024-08-22 09:00 | XMS_ITS | Patient Health Record ---
Author Organization [facility] Address [address] [facility] [address] [place] [address] Care Team Providers Care Senior Mechanical Designer Name Role Phone MORALES LA, [facility] Primary Care Provider Unavailab Jania Pennington Unavailable [phone] Allergies No Known Allergies Results Component Value Reference Range Notes Urinalysis Reviewed date:09/01/2023 11:00:37 AM Interpretation: Performing Lab: Notes/Report: PH 5.0 PROTEIN NEG GLUCOSE NEG BLOOD NEG 411016-Msn IGP, CtNg Culture 30 Plus Reviewed date:09/06/2023 07:23:19 PM Interpretation: Performing Lab:[facility] [place], Ledy [address], [address], [place], Phone - [phone], Director - [facility] Notes/Report: Clinical Information:[id number] LMP / Prev Treat...ZYK=[id number] Dates / Results....07/26/22 NIL No. of containers..01 ThinPrep Vial DIAGNOSIS: NEGATIVE FOR IN TRAEPITHELIAL LESION OR MALIGNANCY. Specimen adequacy: Satisfact ory for evaluation. No endocervical component is identified. Clinician provided ICD10: Z01.419 Z11.3 Z72.51 Performed by: Bryan aviles, Assistant Merchandiser (ASCP) . . Note: The Pap smear [...] 07:22:34 PM Interpretation: Performing Lab:[facility] [place], Ledy [address], [address], [place], Phone - [phone], Director - [facility] Notes/Report: Clinical Information:[id number] LMP / Prev Treat...IQK=[id number] Dates / Results....07/26/22 NIL No. of containers..01 ThinPrep Vial PDF Report Reviewed date:09/23/2023 12:24:15 PM Interpretation: Performing Lab:[facility] [place], [address] [place] [address], Phone - [phone], Director - [facility] Notes/Report: HCV Antibody-[id number] Reviewed date:09/23/2023 12:24:38 PM Interpretation: Performing Lab:[facility] [place], [address] [place] [address], Phone - [phone], Director - [facility] Notes/Report: Hep C Virus Ab Non Reactive Non Reactive HCV antibody alone does not differentiate between previously resolved infection and active infection. Equivocal and Reactive HCV antibody results should be followed up with an HCV RNA test to support the diagnosis of active HCV infection. RPR Qn+TP Abs-[id number] Reviewed date:09/23/2023 12:24:30 PM Interpretation: Performing Lab:[facility] [place], [address] [place] [address], Phone - [phone], Director - [facility] Notes/Report: Rapid Plasma Reagin, Quant Non Reactive NonRea<1:1 titer This test performed by RPR method. Treponema pallidum Antibodies Non Reactive Non Reactive HIV Ab/p24 Ag with Reflex-[id number] Reviewed date:09/23/2023 02:04:38 PM Interpretation: Performing Lab:[facility], [address] [place] [address], Phone - [phone], Director [facility] Notes/Report: HIV Ab/p24 Ag Screen Non Reactive Non Reactive HIV Negative HIV-1/HIV-2 antibodies and HIV-1 p24 antigen were NOT detected. There is no laboratory evidence of HIV infection. HBsAg Screen-[id number] Reviewed date:09/23/2023 12:24:23 PM Interpretation: Performing Lab:[facility], [address], [place], Phone - [phone], Director - Paul Notes/Report: HBsAg Screen Negative [...] test positive, high risk on vaginal specimen (340781400153612) Cervical high risk human papillomavirus (HPV) DNA test positive (R87.810) Active confirmed Problem Mild cervical dysplasia (309811391) Mild cervical dysplasia (N87.0) Active confirmed Problem Moderate cervical dysplasia (782121391) Moderate cervical dysplasia (N87.1) Active confirmed Problem Major depression, single episode (21869066) Major depressive disorder, single episode, unspecified (F32.9) Active confirmed Problem Anxiety disorder (990236988) Anxiety disorder, unspecified (F41.9) Active confirmed Problem Systemic lupus erythematosus (64112616) Systemic lupus erythematosus, unspecified (M32.9) Active confirmed Problem Fibromyalgia (577728330) Fibromyalgia (M79.7) Active confirmed Problem Abnormal vaginal bleeding (693454181) Other specified abnormal uterine and vaginal bleeding (N93.8) Active confirmed Problem Abnormal uterine bleeding (04881524337065) Abnormal uterine and vaginal bleeding, unspecified (N93.9) Active confirmed Problem Sexual dysfunction (10084807) Sexual dysfunction, unspecified (R37) Active confirmed Problem History of dysplasia of cervix (257097268) Personal history of cervical dysplasia (Z87.410) Active confirmed Vital Signs Temperature 97.3 degrees Fahrenheit 09/01/2023 Blood pressure diastolic 74 mm Hg 09/01/2023 Height 65 in 09/01/2023 Blood pressure systolic 100 mm Hg 09/01/2023 Weight 191 lbs 09/01/2023 BMI 31.78 kg/m2 09/01/2023 Encounters Encounter Location Date Provider Diagnosis [address] [place] [address] 09/01/2023 Jania Sepulveda Encounter for gynecological examination [...] Test Name Order Date Urinalysis 04/28/2018 CYTOLOGY (CIVIL CAD DESIGNER) 07/26/2022 CYTOLOGY (CIVIL CAD DESIGNER) 08/10/2017 THIN PREP,HPV,FAISAL IF HPV+ (>29YR)(DIAG) 04/28/2018 THIN PREP,HPV,FAISAL IF HPV+ (>29YR)(SCRN) 07/13/2017 TEST, (IN HOUSE) 08/10/2017 HBsAg Screen-[id number] 09/01/2023 HIV Ab/p24 Ag with Reflex-[id number] 024 RPR Qn+TP Abs-[id number] 09/01/2023 HCV Antibody-[id number] 09/01/2023 Next Appt Details Provider Name:Jania Pettit deion, 09/06/2024 11:00:00 AM, [address], [address], [place], [address], Insurance Providers Payer Name Payer Address Payer Phone Subscriber Number Group Number Insured Name Patient Relationship to Insured Coverage Start Date Coverage End Date [facility] [address] [address] [place] [address] [id number] BRETT RETANA Self - patient is the [...]
[2024-08-22 09:04] VITALS: BP 98/80; PULSE 55; O2SAT 95; BMI 31.7
== END 2024-08-22 10:17 | disposition home or self-care (01) ==
LOC: HO.RHES 08:43
PROVIDERS: PCP Student in an Organized Health Care Education/Training Program; Visit Provider Internal Medicine Rheumatology
DX: M32.19 Other organ or system involvement in systemic lupus erythematosus (principal); M25.561 Pain in right knee; M25.562 Pain in left knee; G89.29 Other chronic pain; M67.88 Other specified disorders of synovium and tendon, other site
CPT/HCPCS: 99214; G2211

== ENCOUNTER 2024-08-22 08:43 | Outpatient (REF) | payer OTHER, SELFPAY ==
--- OUTSIDE RECORDS SUMMARY | 2024-08-22 10:58 | XMS_ITS | Encounter Summary ---
Author Organization [facility] Address [address] [place] [address] Phone Care Team Providers Care Gearcase Assembler Name Role Phone Deena Sam MD Primary Care Provider Reason for Visit * Reason Comments Med Refill Encounter Details Date Type Department Care Team (Late st Contact Info) Description 12/10/2022 Refill [facility] [address] [place] [phone] Merrick Meza MD Social History Tobacco Use [...] on filedocumented in this encounter Care Teams Gearcase Assembler Relationship Specialty Start Date End Date Deena Sam MD [address] [place] [address] [address] [place] [address] PCP - General Internal Medicine 02/16/21 documented as of this encounter
--- OUTSIDE RECORDS SUMMARY | 2024-08-22 10:58 | XMS_ITS | Clinical Summary ---
Author Organization [facility] Address [address] [place] [address] Phone Care Team Providers Care Auto Roller Name Role Phone Jose Azevedo MD Primary Care Provider [phone] Allergies No known active allergies Medications albuterol [...] 30-39.9) 06/21/2023 Lupus (systemic lupus erythe matosus) ([facility] V24, [facility] V28) 01/04/2023 Fibromyalgia 01/04/2023 Encounters Date Type Department Care Team Description 08/02/2024 11:30 AM EDT Office Visit Internal Medicine - [address] [place] [address] Jose Azevedo MD Encounter for annual physical exam (Primary Dx); Mild intermittent asthma without complication; Fibromyalgia; Systemic lupus erythematosus, unspecified SLE type, unspecified organ involvement status ([facility] V24, [facility] V28); Obesity (BMI 30-39.9); Acute pain of [...] Comments OTHER SURGICAL HISTORY 2019 Left PROCEDURE: [place] EXC CYST/ADENOMA THYROID/TRANSECTION ISTHMUS; COMMENT: left sidec thyroid cyst removed KNEE SURGERY 2021 Left PROCEDURE: HISTORICAL KNEE SURGERY; COMMENT: done at [facility] TUBAL LIGATION 2003 Bilateral PROCEDURE: [...] Description 09/21/2024 8:30 AM EDT Office Visit [facility] Hematology Oncology [address] [place] [phone] Marie Ocampo PA [address] [place] [address] Health Maintenance Due Date Last Done Comments [...] mg/dL Blood Venous blood specimen / Unknown [facility] Provider LAB BLOOD ORDERABLES Melita l Result from Last 3 Months or Most Recently Relevant to Health Maintenance Insurance [facility] Member Subscriber Plan / Payer (Ef fective 2024-Present) Name:Stephanie Silverman Relation to Subscriber:Self Name:Stephanie Silverman Payer ID:[id number] Group ID:Not on file Type:Not on file Address: [address] [facility] [place] [address] Care Teams Auto Roller Relationship Specialty Start Date End Date Jose Azevedo MD [address] [place] [address] PCP - General 10/05/22
--- OUTSIDE RECORDS SUMMARY | 2024-08-22 10:59 | XMS_ITS | Clinical Summary ---
Author Organization [facility] Address [address] [facility] [address] [place] [address] Phone Care Team Providers Care Fishing Tool Technician Oil Well Name Role Phone Deena Sam MD Primary [...] which is being evaluated again by the poultry cleaner and both he and I have requested [...] Courtney Hill M.D., Director Clinical Immunology Laboratory [id number] Normal: Negative at 1:10 Anti-[place] DNA Antibodies detected on Crithidia Luciliae Substrate [...] other rheumatic diseases or in drug-induced SLE. Upkk-vanhjy-vkvxdarq DNA antibodies are usually detected in SLE [...] Courtney Hill M.D., Director Clinical Immunology Laboratory [id number] Normal: Negative at 1:10 Anti-[place] DNA Antibodies detected on Crithidia Luciliae Substrate [...] other rheumatic diseases or in drug-induced SLE. Hxpc-fhmvla-cnycetdr DNA antibodies are usually detected in SLE [...] Vaccine (Season Ended) 2024 02/18/[address] [place] [address] ([id number]) [facility] ([id number]) Care Teams Fishing Tool Technician Oil Well Relationship Specialty Start Date End Date Deena Sam MD [address] [place] [address] [address] [place] [address] PCP - General Internal Medicine 02/16/21
[2024-08-22 18:01] LABS: MANUAL DIFF FLAG NO
[2024-08-22 18:13] LABS: Basophils Percent Auto 0.7 % (0-2); Eosinophils Absolute Auto 0.1 X10*3/uL (0.0-0.4); Eosinophils Percent Auto 0.8 % (0-4); Hematocrit 42.2 % (37.0-47.0); Hemoglobin 12.9 g/dl (12.0-16.0); Imm Gran Abs Auto 0.01 X10*3/uL (0.00-0.03); Imm Gran Pct Auto 0.2 % (0.0-0.4); Lymphocytes Absolute Auto 2.3 X10*3/uL (1.2-4.9); Lymphocytes Percent Auto 38.1 % (20-40); Mean Corpuscular HGB Conc 30.6 g/dl (31.0-35.0); Mean Corpuscular Hemoglobin 26.4 pg (27.0-33.0); Mean Corpuscular Volume 86.5 fL (80.0-98.0); Mean Platelet Volume 11.3 fL (9.4-12.3); Monocytes Absolute Auto 0.6 X10*3/uL (0.1-1.2); Monocytes Percent Auto 9.3 % (2-11); Neutrophils Percent Auto 50.9 % (45-73); Platelet Count 248 X10*3/uL (160-400); Red Blood Count 4.88 X10*6/uL (4.20-5.50); Red Cell Distribution Width 13.4 % (11.0-16.0); White Blood Count 5.9 X10*3/uL (4.8-10.8)
[2024-08-22 18:34] LABS: Alanine Aminotransferase 17 U/L (0-31); Aspartate Amino Transferase 26 U/L (5-31); Estimated Glomerular Filt Rate > 60
[2024-08-22 18:40] LABS: Appearance Urine Clear; Color Urine Yellow; Glucose Urine UA Negative (Negative); Leukocyte Esterase Urine Negative (Negative); Nitrite Urine Negative (Negative); PH 5.5 (5.0-9.0); Urine Blood Negative (Negative); Urine Ketones Negative (Negative); Urine Protein Negative (Neg-Trace)
[2024-08-22 18:41] LABS: Creatinine Urine 104.41 mg/dL; Total Protein Urine Random < 7 mg/dL (<12)
[2024-08-22 18:45] LABS: Bacteria Urine Trace (None Seen); Hyaline Casts Urine 0-2 /LPF (0-2); RBC Urine 0-2 /HPF (0-2); WBC Urine 0-5 /HPF (0-5)
[2024-08-23 23:29] LABS: Anti DNA DS Antibody 16 IU/mL
[2024-08-25 16:19] LABS: Complement C3 138 mg/dL (83-193)
== END 2024-08-22 08:44 | disposition home or self-care (01) ==
LOC: HO.HKASLDS 08:43
PROVIDERS: PCP Student in an Organized Health Care Education/Training Program; Visit Provider Internal Medicine Rheumatology
DX: M32.19 Other organ or system involvement in systemic lupus erythematosus (principal); Z79.60 Long term (current) use of unspecified immunomodulators and immunosuppressants
CPT/HCPCS: 36415; 81001; 82565; 82570; 84156; 84450; 84460; 85025; 86160; 86225; 99212

== ENCOUNTER 2024-09-07 08:40 | Outpatient (REF) | payer OTHER, SELFPAY ==
--- NOTE | ~2024-09-07 | XR_ITS ---
CLINICAL HISTORY: M25.561 - Pain in right knee 3 view bilateral knee Comparison: None Findings: Previous internal fixation proximal aspect left tibia. No acute fracture. No dislocation. No significant degenerative changes or erosions. Right vfeyb-xx-gilostca joint effusion. IMPRESSION: 1. No acute osseous findings. 2. Aebns-sa-crcnjmdr right joint effusion. 3. Previous internal fixation left proximal tibia. This document has been electronically signed by: Stefani Singh MD on 09/07/2024 17:17:44
--- OUTSIDE RECORDS SUMMARY | 2024-09-07 08:53 | XMS_ITS ---
Author Organization [facility] Address [address] [place] [address] [address] [place] [address] Care Team Providers Care Sample Builder Name Role Phone MORALES LA, CORBIN Primary Care Provider Unavailab Jania Pennington Unavailable [phone] REASON FOR VISIT Annual RESIDENTIAL CARE FACILITY MANAGER Physical Encounters Encounter Location Date Provider Diagnosis [facility] [address] [place] [address] [address] [place] [address] 09/06/2024 Jania Sepulveda Plan Of Treatment Next Appt Details Provider Name:Jania albarran, 09/24/2024 11:00:00 AM, [address] [facility], [address], [place], [address], Progress Notes * MELODY RETANAB: 5 (39 yo F)Acc No.[id number]:09/06/2024 PROGRESS NOTES Patient:?BRETT RETANA Appointment Provider:?Jania albarran M.D. :1985???Age:39 Y???Sex:Female D ate:09/06/2024 Address:[address] [place], [place] [id number] Pcp:CORBIN NIELSEN MD Subjective: * Chief Complaints: * ???1. Annual RESIDENTIAL CARE FACILITY MANAGER Physical. * Medical History:? Objective: * Vitals:? Assessment: Plan: * Treatment: * Images: Billing Information: * Visit Code:? * Procedure Codes:? * Electronic signature of Romario Sepulveda MD on 09/07/2024 at 08:53 AM EDT Sign off status: Pending * Appointment Provider:?Jania Sepulveda M.D. Date:?09/06/2024 Generated for Thierno muller/Lindy/Natalie on:?09/07/2024 08:53 AM EDT
--- OUTSIDE RECORDS SUMMARY | 2024-09-07 08:53 | XMS_ITS | Clinical Summary ---
Author Organization [facility] Address [address] [facility] [address] [place] [address] Phone Care Team Providers Care Construction Director Name Role Phone Deena Sam MD Primary [...] which is being evaluated again by the roller gold leaf and both he and I have requested [...] Courtney Hill M.D., Director Clinical Immunology Laboratory [id number] Normal: Negative at 1:10 Anti-[place]ach[place] DNA Antibodies detected on Crithidia Luciliae Substrate [...] other rheumatic diseases or in drug-induced SLE. Arxd-ygzzfg-tkixjdfu DNA antibodies are usually detected in SLE [...] Courtney Hill M.D., Director Clinical Immunology Laboratory [id number] Normal: Negative at 1:10 Anti-akiachak DNA Antibodies detected on Crithidia Luciliae Substrate [...] other rheumatic diseases or in drug-induced SLE. Wzzb-shtzyt-mkmkekas DNA antibodies are usually detected in SLE [...] Vaccine (Season Ended) 2024 02/18/[address] [place] [address] ([id number]) [facility] ([id number]) Care Teams Construction Director Relationship Specialty Start Date End Date Deena Sam MD [address] [place] [address] [address] [place] [address] PCP - General Internal Medicine 02/16/21
--- OUTSIDE RECORDS SUMMARY | 2024-09-07 08:53 | XMS_ITS | Clinical Summary ---
Author Organization [address] [place] [address] Address [address] [place] [address] Phone Care Team Providers Care Floral Decorator Name Role Phone Joes Azevedo MD Primary Care Provider Allergies No known active allergies Medications albuterol [...] needed (pain). 1 each 3 5 Active Active Problems Problem Noted Date Diagnosed Date Anxiety and depression 08/02/2024 Mild intermittent asthma without complication Obesity (BMI 30-39.9) 06/21/2023 Lupus (systemic lupus erythe matosus) ([facility] V24, [facility] V28) 01/04/2023 Fibromyalgia 01/04/2023 Encounters Date Type Department Care Team Description 08/02/2024 11:30 AM EDT Office Visit Internal Medicine - [address] [place] [address] Jose Azevedo MD Encounter for annual physical exam (Primary Dx); Mild intermittent asthma without complication; Fibromyalgia; Systemic lupus erythematosus, unspecified SLE type, unspecified organ involvement status ([facility] V24, [facility] V28); Obesity (BMI 30-39.9); Acute pain of [...] Comments OTHER SURGICAL HISTORY 2019 Left PROCEDURE: [place] EXC CYST/ADENOMA THYROID/TRANSECTION ISTHMUS; COMMENT: left sidec thyroid cyst removed KNEE SURGERY 2021 Left PROCEDURE: HISTORICAL KNEE SURGERY; COMMENT: done at [facility] TUBAL LIGATION 2003 Bilateral PROCEDURE: HISTORICAL [...] Office Visit [facility] Hematology Oncology [address] [place] [phone] Marie Ocampo PA [address] [place] [address] Health Maintenance Due Date Last Done Comments [...] mg/dL Blood Venous blood specimen / Unknown us Historical Provider LAB BLOOD ORDERABLES Melita l Result from Last 3 Months or Most Recently Relevant to Health Maintenance Insurance [facility] Member Subscriber Plan / Payer (Ef fective 2024-Present) Name:Stephanie Silverman Relation to Subscriber:Self Name:Stephanie Silverman Payer ID:[id number] Group ID:Not on file Type:Not on file Address: [place] [address] [place] [address] Care Teams Floral Decorator Relationship Specialty Start Date End Date Jose Azevedo MD [address] [place] [address] PCP - General 10/05/22
--- OUTSIDE RECORDS SUMMARY | 2024-09-07 08:53 | XMS_ITS | Encounter Summary ---
Author Organization [facility] Address [address] [place] [address] Phone Care Team Providers Care Mobile Phone Salesperson Name Role Phone Deena Sam MD Primary Care Provider Reason for Visit * Reason Comments Med Refill Encounter Details Date Type Department Care Team (Late st Contact Info) Description 12/10/2022 Refill [facility] [address] [place] [address] Merrick Meza MD Social History Tobacco Use [...] on filedocumented in this encounter Care Teams Mobile Phone Salesperson Relationship Specialty Start Date End Date Deena Sam MD [address] [place] [address] [address] [place] [address] PCP - General Internal Medicine 02/16/21 documented as of this encounter
--- OUTSIDE RECORDS SUMMARY | 2024-09-07 08:53 | XMS_ITS | Patient Health Record ---
Author Organization [facility] Address [address] [facility] [address] [place] [address] Care Team Providers Care Micrographics Services Supervisor Name Role Phone MORALES LA, [facility] Primary Care Provider Unavailab Jania Pennington Unavailable [phone] Allergies No Known Allergies Reason For Referral No Information Medications Medication [...] test positive, high risk on vaginal specimen (671996500649411) Cervical high risk human papillomavirus (HPV) DNA test positive (R87.810) Active confirmed Problem Mild cervical dysplasia (117968374) Mild cervical dysplasia (N87.0) Active confirmed Problem Moderate cervical dysplasia (293790136) Moderate cervical dysplasia (N87.1) Active confirmed Problem Major depression, single episode (75143045) Major depressive disorder, single episode, unspecified (F32.9) Active confirmed Problem Anxiety disorder (239900618) Anxiety disorder, unspecified (F41.9) Active confirmed Problem Systemic lupus erythematosus (59699135) Systemic lupus erythematosus, unspecified (M32.9) Active confirmed Problem Fibromyalgia (516932186) Fibromyalgia (M79.7) Active confirmed Problem Abnormal vaginal bleeding (240822875) Other specified abnormal uterine and vaginal bleeding (N93.8) Active confirmed Problem Abnormal uterine bleeding (67989394262409) Abnormal uterine and vaginal bleeding, unspecified (N93.9) Active confirmed Problem Sexual dysfunction (30814622) Sexual dysfunction, unspecified (R37) Active confirmed Problem History of dysplasia of cervix (758743713) Personal history of cervical dysplasia (Z87.410) Active confirmed Plan Of Treatment Pending Test Test Name Order Date Urinalysis 04/28/2018 CYTOLOGY (TINNING EQUIPMENT TENDER) 08/10/2017 CYTOLOGY (TINNING EQUIPMENT TENDER) 07/26/2022 THIN PREP,HPV,FAISAL IF HPV+ (>29YR)(DIAG) 04/28/2018 THIN PREP,HPV,FAISAL IF HPV+ (>29YR)(SCRN) 07/13/2017 TEST, (IN HOUSE) 08/10/2017 HBsAg Screen-[id number] 09/01/2023 HIV Ab/p24 Ag with Reflex-528631 024 RPR Qn+TP Abs-[id number] 09/01/2023 HCV Antibody-[id number] 09/01/2023 Next Appt Details Provider Name:Jnaia Pettit deion, 09/24/2024 11:00:00 AM, [address] [facility], [address], [place], [address], Insurance Providers Payer Name Payer Address Payer Phone Subscriber Number Group Number Insured Name Patient Relationship to Insured Coverage Start Date Coverage End Date [facility] [address] [address] [place] [address] [id number] RETANA, BRETT Self - patient is the insured Medical [...] Surgical History Surgery Date(Month/Year) Bilateral Tubal Ligation 2004 Colposcopy Leep 2018 Hospitalization History Reason Date(Month/Year) See Surgical Hx
== END 2024-09-07 08:41 | disposition home or self-care (01) ==
LOC: HO.XRAY 08:40
PROVIDERS: PCP Student in an Organized Health Care Education/Training Program; Visit Provider Internal Medicine Rheumatology
DX: M25.561 Pain in right knee (principal); M25.562 Pain in left knee
CPT/HCPCS: 73560

== ENCOUNTER → 2024-09-07 08:45 | Outpatient (BNV) | payer OTHER, SELFPAY | PROVIDERS: PCP Student in an Organized Health Care Education/Training Program; Visit Provider Specialist | DX: M25.461 Effusion, right knee (principal) | CPT/HCPCS: 73560 ==

== ENCOUNTER 2024-11-20 08:48 | Outpatient (REF) | payer OTHER, SELFPAY ==
[2024-11-20 13:31] LABS: MANUAL DIFF FLAG NO
[2024-11-20 13:33] LABS: Appearance Urine Turbid; Glucose Urine UA Negative (Negative); PH 5.5 (5.0-9.0); Specific Gravity - Urine 1.020 (1.005-1.025)
[2024-11-20 13:35] LABS: Hematocrit 38.7 % (37.0-47.0); Hemoglobin 12.4 g/dl (12.0-16.0); Imm Gran Abs Auto 0.01 X10*3/uL (0.00-0.03); Imm Gran Pct Auto 0.2 % (0.0-0.4); Lymphocytes Absolute Auto 1.8 X10*3/uL (1.2-4.9); Mean Corpuscular HGB Conc 32.0 g/dl (31.0-35.0); Mean Corpuscular Hemoglobin 27.2 pg (27.0-33.0); Mean Corpuscular Volume 84.9 fL (80.0-98.0); NRBC Abs Auto 0.000 X10*3/uL (0.0-0.012); NRBC Pct Auto 0.0 /100WBC (0.0-0.2); Platelet Count 244 X10*3/uL (160-400); Red Blood Count 4.56 X10*6/uL (4.20-5.50); White Blood Count 5.0 X10*3/uL (4.8-10.8)
[2024-11-20 13:54] LABS: Alanine Aminotransferase 16 U/L (0-31); Anion Gap 10 (12-20); Aspartate Amino Transferase 25 U/L (5-31); Blood Urea Nitrogen 13 mg/dL (9-16); Carbon Dioxide 27 mmol/L (22-29); Chloride 108 mmol/L (96-108); Estimated Glomerular Filt Rate > 60; Potassium 3.8 mmol/L (3.3-5.1); Sodium 141 mmol/L (135-145)
[2024-11-20 13:55] LABS: Total Protein Urine Random < 7 mg/dL (<12)
[2024-11-24 08:43] LABS: DNAds, Crithidia Antibody Positive (Negative)
[2024-11-24 09:14] LABS: DNAds, Crithidia Antibody 1:80 titer (<1:10)
== END 2024-11-20 08:49 | disposition home or self-care (01) ==
LOC: HO.HKASLDS 08:48
PROVIDERS: Internal Medicine Nephrology; PCP Student in an Organized Health Care Education/Training Program; Visit Provider Internal Medicine Rheumatology
DX: M32.9 Systemic lupus erythematosus, unspecified (principal); M67.88 Other specified disorders of synovium and tendon, other site; M32.19 Other organ or system involvement in systemic lupus erythematosus; M25.561 Pain in right knee; M25.562 Pain in left knee
CPT/HCPCS: 36415; 80051; 81001; 81003; 82565; 82570; 84156; 84450; 84460; 84520; 85025; 85652; 86140; 86160; 86255; 99212

== ENCOUNTER 2024-11-20 08:48 | Outpatient (AMB) | payer OTHER, SELFPAY ==
--- OUTSIDE RECORDS SUMMARY | 2024-09-06 07:00 | XMS_ITS ---
Author Organization [facility] Address [address] [place] [address] [address] [place] [address] Care Team Providers Care Blacking Machine Operator Name Role Phone MORALES LA, CORBIN Primary Care Provider Unavailab Jania Pennington Unavailable [phone] REASON FOR VISIT Annual ETCHER PRINTED CIRCUIT BOARDS Physical Encounters Encounter Location Date Provider Diagnosis [facility] [address] [place] [address] 09/06/2024 Jania Sepulveda Plan Of Treatment Next Appt Details Provider Name:Jania albarran, 09/30/2025 10:00:00 AM, [address] [place] [address], [address], [place], [address], Progress Notes * MELODY RETANAB: 5 (39 yo F)Acc No.[id number]:09/06/2024 PROGRESS NOTES Patient: BRETT RENTERIA Appointment Provider: Rosy Sepulveda M.D. :1985 A ge:39 Y S ex:Female Date:09/06/2024 Address:[address] [place], [place] [id number] Pcp:CORBIN NIELSEN MD Subjective: * Chief Complaints: * 1 . Annual ETCHER PRINTED CIRCUIT BOARDS Physical. * Medical History: Objective: * Vitals: Assessment: Plan: * Treatment: * Images: Billing Information: * Visit Code: * Procedure Codes: * Electronic signature of Romario Sepulveda MD on 11/20/2024 at 09:04 AM EDT Sign off status: Pending * Appointment Provider: Rosy Sepulveda M.D. Date: 0 09/06/2024 Generated for Thierno muller/Lindy/Natalie on: 0 11/20/2024 09:04 AM EDT
--- NOTE | 2024-11-20 08:50 | A.OFFVIS_ITS ---
Vital Signs 11/20/24 08:51 Height 5 ft 5 in Weight 192 lb 3 oz BMI 32.0 BP 110/80 Blood Pressure Location Lt brachial Position Sitting Pulse 77 Pulse Source Pulse Oximeter Pulse Oximetry (%) 97 Oxygen Delivery Method Room Air Intake Visit Reasons: 3 months Intake Note: Patient presents for SLE. Vibrator Operator Name: sara [id number] Information Interpreted: non-clinical & clinical Allergies No Known Allergies Allergy (Verified 11/20/24 08:53) HPI HPI 3 months: Details: Video staff interpreter used. She did not got to PT due to her having many appointments. Using brace when she is not home. Flat shoes exacerbates pain. [facility] Medical History Long-term use of immunosuppressant medication Fibromyalgia Lupus (systemic lupus erythematosus) Surgical History History of tubal ligation History of surgery on lower extremity History of thyroid surgery Family History Mother Diabetes Lupus Brother Diabetes Social History Household Members: Significant Other and Children Alcohol intake: never Patient Tobacco Use Status: Former Tobacco user Current occupational status: disabled Physical Exam Vital Signs: Last Vital Signs Pulse 77 11/20/24 08:51 BP 110/80 11/20/24 08:51 Pulse Ox 97 11/20/24 08:51 Oxygen Delivery Method Room Air 11/20/24 08:51 BMI result Body Mass Index 32.0 Const Other: General: Comfortable CVS: RRR Respiratory: clear to auscultation bilaterally. Good respiratory effort Skin: Mass behind left ear the size of a quarter, without fluctuance, hard. MSK: No synovitis. Tender to palpate left shoulders. Bilateral shoulder abduction is 160 degrees with normal internal and external rotation. Tender to palpate bilateral knees with crepitus palpated. She has suprapatellar effusion of right knee with tenderness. Knee flexion 120 degrees with pain. Tender right Achilles tendon at the attachment of the calcaneus. No ankle tenderness. No MTP tenderness. Results Reviewed Results Reviewed: Ordering Physician: Ronald Terrazas MD Date of Service: 09/07/24 Procedure(s): XR Knee Alonso 1or 2V Accession Number(s): [id number] cc: Jose Azevedo MD; Ronald Terrazas MD~ CLINICAL HISTORY: M25.561 - Pain in right knee 3 view bilateral knee Comparison: None Findings: Previous internal fixation proximal aspect left tibia. No acute fracture. No dislocation. No significant degenerative changes or erosions. Right bwlbn-xu-bifovmow joint effusion. IMPRESSION: 1. No acute osseous findings. 2. Omrdt-ua-aclyyjni right joint effusion. 3. Previous internal fixation left proximal tibia. Assessment & Plan Assessment & Plan (1) Lupus (systemic lupus erythematosus): Comment: Controlled on HCQ 400mg qd. Labs from last visit did not reveal SLE activity. She continues to have right suprapatellar effusion with bilateral knee pain. X- rays did not reveal arthritis. We discussed conservative management. She agreed to PT and bracing. Rheumatology history: On [employer] and HCQ over 10 years. Dx 2006 (skin biopsy- proven, arthralgias, rashes, scarring alopecia, proteinuria, pericarditis) Code(s): M32.9 - Systemic lupus erythematosus, unspecified Category: Medical Qualifiers: Systemic lupus erythematosus type: other Systemic lupus erythematosus organ involvement: other Qualified Code(s): M32.19 - Other organ or system involvement in systemic lupus erythematosus Plan: labs for SLE and drug monitoring ordered Continue HCQ 400mg daily. Requesting last eye exam for HCQ surveillance x2 request Continue MMF 500mg BID. Consider increasing dose next visit depending on knee exam next visit ?arthritis activity from SLE. See below for right knee management RTC 3 months (2) Bilateral knee pain: Comment: R suprapatellar effusion present last exam confirmed on x-ray. Chronic knee pain with activity but improved with mild exercise. Code(s): M25.561 - Pain in right knee; M25.562 - Pain in left knee Category: Medical Qualifiers: Chronicity: chronic Qualified Code(s): M25.561 - Pain in right knee; M25.562 - Pain in left knee; G89.29 - Other chronic pain Plan: PT ordered for strengthening Hinged knee brace rx given to patient RTC 3 months (3) Achilles tendinosis of right lower extremity: Comment: Improved. Code(s): M67.88 - Other specified disorders of synovium and tendon, other site Category: Medical Plan: Continue bracing wear supportive footwear She agreed to PT RTC 3 months (4) Right knee pain: Code(s): M25.561 - Pain in right knee Category: Medical Plan: see above Orders: Orders Aspartate Amino Transferase Today M32.9 - Systemic lupus erythematosus, unspecified Creatinine Today M32.9 - Systemic lupus erythematosus, unspecified DNA Double Stranded-Crithidia Today M32.9 - Systemic lupus erythematosus, unspecified UA ClnCatch+Micro w/rflx Cult Today M32.9 - Systemic lupus erythematosus, unspecified Complete Blood Count Auto Diff Today M32.9 - Systemic lupus erythematosus, unspecified Erythrocyte Sedimentation Rate Today M32.9 - Systemic lupus erythematosus, unspecified Protein Creatinine Ratio, Ur Today M32.9 - Systemic lupus erythematosus, unspecified Alanine Aminotransferase Today M32.9 - Systemic lupus erythematosus, uns pecified Complement C3 Today M32.9 - Systemic lupus erythematosus, unspecified Complement C4 Today M32.9 - Systemic lupus erythematosus, unspecified C Reactive Protein Today M32.9 - Systemic lupus erythematosus, unspecified Medications: New leg brace (Knee Support Brace) As directed Hinged right knee brace Dx: chronic knee pain, systemic lupus erythematosus 1 ea 0RF Changed From mycophenolate mofetil 500 mg PO BID 180 tabs 4RF To mycophenolate mofetil 500 mg PO BID 180 tabs 0RF 90 days Refilled hydroxychloroquine 200 mg PO BID 180 tabs 0RF 90 days M32.19 - Other organ or system involvement in systemic lupus erythematosus Coding Level of Care Code Est Pt Level 4 (43070) Complex EM visit Add On G2211 Diagnoses Other systemic lupus erythematosus with other organ involvement M32.19 Systemic lupus erythematosus type: other Systemic lupus erythematosus organ involvement: other Chronic pain of both knees M25.561; M25.562; G89.29 Chronicity: chronic Achilles tendinosis of right lower extremity M67.88 Right knee pain M25.561
[2024-11-20 08:51] VITALS: BP 110/80; PULSE 77; O2SAT 97; BMI 32.0
--- OUTSIDE RECORDS SUMMARY | 2024-11-20 09:04 | XMS_ITS | Clinical Summary ---
Author Organization [address] [place] [address] Address [address] [place] [address] Phone Care Team Providers Care Taximeter Repairer Name Role Phone Jose Azevedo MD Primary Care Provider [phone] Allergies No known active allergies Medications albuterol HFA (PROAIR HFA ; PROVENTIL HFA ; VENTOLIN HFA) 90 mcg/actuation inhaler Inhale 2 Puffs into the lungs every 4 hours as needed for Wheezing. 12/08/19 24 Active clonazePAM (KlonoPIN) 1 mg tablet Take 1 Tablet by mouth as needed. Active fluticasone HFA (FLOVENT HFA) 110 mcg/actuation inhaler Inhale 1 Puff into the lungs 2 times daily. Active hydroxychloroq uine (PLAQUENIL) 200 mg tablet Take 1 Tablet by mouth 2 times daily. Active mycophenolate (CELLCEPT) 500 mg tablet Take 1 Tablet by mouth 2 times daily. 10/30/19 24 Active folic acid (FOLVITE) 1 mg tablet Take 1 tablet (1 mg total) by mouth 1 (one) time each day. 90 tablet 1 07/04/19 25 Active diclofenac (VOLTAREN) 1 % topical gel Apply 2 g topically 4 (four) times a day if needed (pain). 1 each 3 08/03/19 25 Active pregabalin (LYRICA) 150 mg capsuleIndicat ions:Fibromyal alisson Take 1 capsule (150 mg total) by mouth 2 (two) times a day. Max Daily Amount: 300 mg 180 each 1 10/18/19 25 025 Active escitalopram (LEXAPRO) 5 mg tablet 11/15/19 25 Active meloxicam (MOBIC) 15 mg tablet TOME MUSA TABLETA POR V A ORAL TODOS LOS D CON ALIMENTO 11/04/19 25 Active zolpidem (AMBIEN) 10 mg tablet Take 1 Tablet by mouth at bedtime. 025 Discontinued Active Problems Problem Noted Date Diagnosed Date Anxiety and depression 08/02/2024 Mild intermittent asthma without complication Obesity (BMI 30-39.9) 06/21/2023 Lupus (systemic lupus erythe matosus) ([facility] V24, [facility] V28) 01/04/2023 Fibromyalgia 01/04/2023 Encounters Date Type Department Care Team Description 11/15/2024 11:00 AM EDT Office Visit [facility] Hematology Oncology [address] [place] [phone] Arlene Cantu DO Easy bruisability (Primary Dx) 10/31/2024 12:00 PM EDT Office Visit Internal Medicine [facility] [address] [phone] Latoya Herrera MD Lump in neck (Primary Dx) 10/30/2024 Telephone Internal Medicine [facility] [address] [phone] Humberto Dorman [place] Appointment Reminder 10/30/2024 Telephone Internal Medicine [facility] [address] [phone] Humberto Dorman [place] Appointment Reminder 10/17/2024 Telephone Internal Medicine [facility] [address] [phone] Yisel Taylor MA faxed form ([employer]) 09/25/2024 Telephone Internal Medicine [facility] [address] [phone] Jose Azevedo MD Forms/questionnaires 09/21/2024 [place] [facility] [address] [phone] Jose Azevedo MD from Last 3 Months Immunizations Name Administration Dates Next Due Influenza Quadravalent, MDCK , 0.5ml, preservative free (Flucelvax) 6mo and older 05/11/2023 Tdap Tetanus diptheria acell ular pertussis (Boostrix; Adacel) 7yo and older 05/11/2023 Surgical History Surgery Date Site/Laterality Comments OTHER SURGICAL HISTORY 2019 Left PROCEDURE: [place] EXC CYST/ADENOMA THYROID/TRANSECTION ISTHMUS; COMMENT: left sidec thyroid cyst removed KNEE SURGERY 2021 Left PROCEDURE: HISTORICAL KNEE SURGERY; COMMENT: done at [facility] TUBAL LIGATION 2003 Bilateral PROCEDURE: HISTORICAL TUBAL LIGATION; COM[facility] Medical History Medical History Date Comments Lupus [...] Sign Reading Time Taken Comments Blood Pressure 105/56 11/15/2024 11:08 AM EDT Pulse 73 11/15/2024 11:08 AM EDT Temperature 37.1 C (98.7 F) 11/15/2024 11:08 AM EDT Respiratory Rate 18 10/31/2024 12:00 PM EDT Oxygen Saturation 97% 11/15/2024 11:08 AM EDT Inhaled Oxygen Concentration - - Weight 87.1 kg (192 lb) 11/15/2024 11:08 AM EDT Height 165.1 cm (5' 5 ) 11/15/2024 11:08 AM EDT Body Mass Index 31.95 11/15/2024 11:08 AM EDT Plan of Treatment Upcoming Encounters Date Type Department Care Team (Late st Contact Info) Description 11/28/2024 3:45 PM EDT Appointment [facility] CT Scan [address] [place] [phone] 12/28/2024 11:30 AM EDT Office Visit [facility] Hematology Oncology [address] [place] [phone] Arlene Cantu DO [address] [place] [address] 08/07/2025 1:00 PM EDT Office Visit Internal Medicine [facility] 175 [facility] [address] [place] [phone] Jose Azevedo MD [address] [place] [address] Health Maintenance Due Date Last Done Comments Hepatitis B Vaccines (1 of 3 - 19+ 3-dose series) 02/14/2004 Pneumococcal Vaccine: Pediatrics (0 to 5 Years) and At-Risk Patients (6 to 49 Years) (1 of 2 - PCV) 02/14/2004 Cervical Cancer Screening: Pap Smear 2006 HIV Screening 03/28/2022 Hepatitis C Screening 03/28/2022 COVID-19 Vaccine ( season) 2023 03/21/2021, 08/16/2020, 07/26/2020 Influenza Vaccine (#1) 2024 , 02/18/2020, 01/18/2019, Additional history exists Social Influencers of Health Screening 08/02/2025 08/02/2024 Cholesterol Screening (Lipid Panel) 10/31/2029 10/31/2024, 12/31/2022 DTaP,Tdap,and Td Vaccines (3 - Td or Tdap) 05/11/2033 05/11/2023, 02/27/2014 Depression Screening Completed 06/18/2024 HIB Vaccines Aged Out No longer eligi [...] 20 months Aged Out No longer eligible based on patient's age to complete this topic Varicella Vaccines Aged Out No longer eligible based on patient's age to complete this topic Procedures Procedure Name Priority Date/Time Associated Diagnosis Comments FOLATE Routine 11/15/2024 11:40 AM EDT Easy bruisability IRON AND TIBC Routine 11/15/2024 11:40 AM EDT Easy bruisability ACTIVATED PARTIAL THROMBOPLASTIN TIME Routine 11/15/2024 11:40 AM EDT Easy bruisability PROTHROMBIN TIME WITH INR Routine 11/15/2024 11:40 AM EDT Easy bruisability TRIIODOTHYRONINE FREE Routine 10/31/2024 12:27 PM EDT Encounter for annual physical exam Other fatigue FREE THYROXINE WITH REFLEX TO FREE TRIIODOTHYRONINE Routine 10/31/2024 12:27 PM EDT Encounter for annual physical exam Other fatigue CBC WITH AUTO DIFFERENTIAL Routine 10/31/2024 12:27 PM EDT Encounter for annual physical exam Other fatigue THYROID STIMULATING HORMONE WITH REFLEX TO FREE T4 AND FREE T3 Routine 10/31/2024 12:27 PM EDT Encounter for annual physical exam Other fatigue VITAMIN D 25 HYDROXY Routine 10/31/2024 12:27 PM EDT Encounter for annual physical exam Vitamin D deficiency LIPID PANEL WITH REFLEX TO DIRECT LDL Routine 10/31/2024 12:27 PM EDT Encounter for annual physical exam Encounter for lipid screening for cardiovascular disease COMPREHENSIVE METABOLIC PANEL Routine 10/31/2024 12:27 PM EDT Encounter for annual physical exam VITAMIN B12 Routine 10/31/2024 12:27 PM EDT Encounter for annual physical exam Other fatigue HEMOGLOBIN A1C Routine 10/31/2024 12:27 PM EDT Encounter for annual physical exam Other abnormal glucose CBC AND DIFFERENTIAL Routine 10/31/2024 12:27 PM EDT Encounter for annual physical exam Other fatigue from Last 3 Months Results * Iron and TIBC (11/15/2024 11:40 AM EDT) Iron 102 40 - 150 mcg/dL LAB CHEMISTRY METHOD 11/15/2024 2:03 PM EDT [facility] TIBC 426 250 - 450 mcg/dL LAB CHEMISTRY METHOD 11/15/2024 2:03 PM EDT [facility] Iron Saturation 24 15 - 50 % LAB CHEMISTRY METHOD 11/15/2024 2:03 PM EDT [facility] Blood Venous blood specimen / Unknown Venipuncture / Unknown 11/15/2024 11:40 AM EDT 11/15/2024 1:26 PM EDT Arlene Cantu DO LAB BLOOD ORDERABLES Final Result Performing Organization Address [facility]/ZIP Co de Phone Number [facility] [address] [place] [address], [place] [phone] * Activated partial thromboplastin time (11/15/2024 11:40 AM EDT) [facility] aPTT 35.7 24.1 - 39.3 sec LAB COAGULATION METHOD 11/15/2024 1:43 PM EDT [facility] Blood Venous blood specimen / Unknown Venipuncture / Unknown 11/15/2024 11:40 AM EDT 11/15/2024 1:27 PM EDT Arlene Cantu DO LAB BLOOD ORDERABLES Final Result [facility] [address] [place] [address], [place] [phone] * Prothrombin time with INR (11/15/2024 11:40 AM EDT) Protime 12.3 10.6 - 13.9 sec LAB COAGULATION METHOD 11/15/2024 1:43 PM EDT [facility] INR 1.0 LAB COAGULATION METHOD 11/15/2024 1:43 PM EDT [facility] Blood Venous blood specimen / Unknown Venipuncture / Unknown 11/15/2024 11:40 AM EDT 11/15/2024 1:27 PM EDT us Arlene Cantu DO LAB BLOOD ORDERABLES Final Result Performing Organization Address [facility]/ZIP Co de Phone Number [facility] [address] [place] [address], [place] [phone] * (ABNORMAL) Folate (11/15/2024 11:40 AM EDT) Folate >20.0(H) 2.8 - 17.0 ng/ml LAB CHEMISTRY METHOD 11/15/2024 2:03 PM EDT [facility] Blood Venous blood specimen / Unknown Venipuncture / Unknown 11/15/2024 11:40 AM EDT 11/15/2024 1:26 PM EDT Arlene Cantu DO LAB BLOOD ORDERABLES Final Result Performing Organization Address [facility] de Phone Number [facility] [address] [place] [address], [place] [phone] * (ABNORMAL) Thyroid stimulating hormone with reflex to free t4 and free t3 (10/31/2024 12:27 PM EDT) TSH 5.34(H) 0.40 - 4.00 mcIU/mL LAB CHEMISTRY METHOD 10/31/2024 4:43 PM EDT [facility] Blood Venous blood specimen / Unknown Venipuncture / Unknown 10/31/2024 12:27 PM EDT 10/31/2024 12:27 PM EDT Jose Azevedo MD LAB BLOOD ORDERABLES Final Resul t [facility] [address] [place] [address], [place] [phone] * Free thyroxine with reflex to free triiodothyronine (10/31/2024 12:27 PM EDT) Free T4 1.15 0.70 - 1.80 ng/dL LAB CHEMISTRY METHOD 10/31/2024 7:27 PM EDT [facility] Blood Venous blood specimen / Unknown Venipuncture / Unknown 10/31/2024 12:27 PM EDT 10/31/2024 12:27 PM EDT Jose Azevedo MD LAB BLOOD ORDERABLES Final Resul t [facility] [address] [place] [address], * Lipid panel with reflex to direct LDL (10/31/2024 12:27 PM EDT) [facility] Cholesterol 151 0 - 200 mg/dL LAB CHEMISTRY METHOD 10/31/2024 2:52 PM EDT [facility] Triglycerides 86 0 - 150 mg/dL LAB CHEMISTRY METHOD 10/31/2024 2:52 PM EDT [facility] HDL 61 >=40 mg/dL LAB CHEMISTRY METHOD 10/31/2024 2:52 PM EDT [facility] LDL Calculated 73 0 - 100 mg/dL LAB CHEMISTRY METHOD 10/31/2024 2:52 PM EDT [facility] VLDL Cholesterol Jamari 17.2 mg/dL LAB CHEMISTRY METHOD 10/31/2024 2:52 PM EDT [facility] Non HDL Chol. (LDL+VLDL) 90 <145 mg/dL LAB CHEMISTRY METHOD 10/31/2024 2:52 PM EDT [facility] Chol/HDL Ratio 2.5 0.0 - 4.4 LAB CHEMISTRY METHOD 10/31/2024 2:52 PM EDT [facility] Blood Venous blood specimen / Unknown Venipuncture / Unknown 10/31/2024 12:27 PM EDT 10/31/2024 12:27 PM EDT Jose Azevedo MD LAB BLOOD ORDERABLES Final Resul t [facility] [address] [place] [address], * (ABNORMAL) CBC auto differential (10/31/2024 12:27 PM EDT) WBC 6.8 4.8 - 10.8 K/mcL LAB HEMETOLOGY METHOD 10/31/2024 2:30 PM EDT [facility] RBC 4.90(H) 3.80 - 4.80 M/mcL LAB HEMETOLOGY METHOD 10/31/2024 2:30 PM EDT [facility] Hemoglobin 12.8 11.5 - 16.0 g/dL LAB HEMETOLOGY METHOD 10/31/2024 2:30 PM EDT [facility] Hematocrit 41.5 35.0 - 47.0 % LAB HEMETOLOGY METHOD 10/31/2024 2:30 PM EDT [facility] MCV 85.6 79.0 - 98.0 FL LAB HEMETOLOGY METHOD 10/31/2024 2:30 PM EDT [facility] MCH 26.4(L) 27.0 - 32.0 pcg LAB HEMETOLOGY METHOD 10/31/2024 2:30 PM EDT [facility] MCHC 30.8(L) 32.0 - 37.0 g/dL LAB HEMETOLOGY METHOD 10/31/2024 2:30 PM EDT [facility] RDW 13.2 11.0 - 15.0 % LAB HEMETOLOGY METHOD 10/31/2024 2:30 PM EDT [facility] Platelets 266 130 - 400 K/mcL LAB HEMETOLOGY METHOD 10/31/2024 2:30 PM EDT [facility] MPV 10.9 7.0 - 11.0 FL LAB HEMETOLOGY METHOD 10/31/2024 2:30 PM EDT [facility] NRBC 0.0 <1.0 % LAB HEMETOLOGY METHOD 10/31/2024 2:30 PM EDT [facility] NRBC Absolute 0.00 <0.10 K/mcL LAB HEMETOLOGY METHOD 10/31/2024 2:30 PM EDT [facility] Neutrophils Relative 48.6 % LAB [facility] Lymphocytes Relative 39.5 % [facility]EMETOLOGY [facility]/31[facility]2024 [facility] Monocytes Relative 9.7 % LAB HEMETOLOGY METHOD 10/31/2024 2:[facility] Eosinophils Relative 1.2 % LAB [facility]EMETOLOGY METHOD [facility]/31[facility]2024 [facility] Basophils Relative 0.7 % LAB HEMETOLOGY METHOD 10/31/2024 2:30 PM [facility] Immature Granulocytes Relative 0.3 % LAB HEMETOLOGY METHOD 10/31/2024 2:30 PM EDT [facility] Neutrophils Absolute 3.31 1.50 - 7.00 K/mcL LAB HEMETOLOGY METHOD 10/31/2024 2:30 PM EDT [facility] Lymphocytes Absolute 2.69 1.00 - 5.00 K/mcL LAB HEMETOLOGY METHOD 10/31/2024 2:30 PM EDT [facility] Monocytes Absolute 0.66 0.20 - 1.00 K/mcL LAB HEMETOLOGY METHOD 10/31/2024 2:30 PM EDT [facility] Eosinophils Absolute 0.08 0.00 - 0.50 K/mcL LAB HEMETOLOGY METHOD 10/31/2024 2:30 PM EDT [facility] Basophils Absolute 0.05 0.00 - 0.20 K/[facility] LAB HEMETOLOGY METHOD 10/31/2024 2:30 PM EDT [facility] Immature Granulocytes Absolute 0.02 0.00 - 0.03 K/[facility] LAB HEMETOLOGY METHOD 10/31/2024 2:30 PM EDT [facility] Blood Venous blood specimen / Unknown Venipuncture / Unknown 10/31/2024 12:27 PM EDT 10/31/2024 12:27 PM EDT Jose Azevedo MD LAB BLOOD ORDERABLES Final Resul t Performing Organization Address City/[facility]/ZIP Co de Phone Number [facility] [address] [place] [address], [place] [phone] * (ABNORMAL) Vitamin D 25 hydroxy (10/31/2024 12:27 PM EDT) [facility] Vit D, 25-Hydroxy 28.0(L) 30.0 - 80.0 ng/mL LAB CHEMISTRY METHOD 10/31/2024 4:42 PM EDT [facility] Blood Venous blood specimen / Unknown Venipuncture / Unknown 10/31/2024 12:27 PM EDT 10/31/2024 12:27 PM EDT Jose Azevedo MD LAB BLOOD ORDERABLES Final Resul t [facility] [address] [place] [address], [place] [phone] * Triiodothyronine free (10/31/2024 12:27 PM EDT) T3, Free 298 230 - 420 pcg/dL LAB CHEMISTRY METHOD 10/31/2024 9:22 PM EDT [facility] Blood Venous blood specimen / Unknown Venipuncture / Unknown 10/31/2024 12:27 PM EDT 10/31/2024 12:27 PM EDT Jose Azevedo MD LAB BLOOD ORDERABLES Final Resul t Performing Organization Address City/[facility]/ZIP Co de Phone Number [facility] [address] [place] [address], [place] [phone] * Hemoglobin A1c (10/31/2024 12:27 PM EDT) Hemoglobin A1C 5.5 <6.5 % LAB CHEMISTRY METHOD 10/31/2024 2:25 PM EDT [facility] Mean Bld Glu Estim. 111 mg/dL LAB CHEMISTRY METHOD 10/31/2024 2:25 PM EDT [facility] Blood Venous blood specimen / Unknown Venipuncture / Unknown 10/31/2024 12:27 PM EDT 10/31/2024 12:27 PM EDT us Jose Azevedo MD LAB BLOOD ORDERABLES Final Resul t Performing Organization Address City/[facility]/ZIP Co de Phone Number [facility] [address] [place] [address], [place] [phone] * Vitamin B12 (10/31/2024 12:27 PM EDT) Vitamin B-12 617 250 - 900 pcg/mL LAB CHEMISTRY METHOD 10/31/2024 10:58 PM EDT [facility] Blood Venous blood specimen / Unknown Venipuncture / Unknown 10/31/2024 12:27 PM EDT 10/31/2024 12:27 PM EDT us Jose Azevedo MD LAB BLOOD ORDERABLES Final Resul t [facility] [address] [place] [address], * Comprehensive metabolic panel (10/31/2024 12:27 PM EDT) Sodium 139 133 - 145 mmol/L LAB CHEMISTRY METHOD 10/31/2024 2:52 PM EDT [facility] Potassium 3.8 3.5 - 5.5 mmol/L LAB CHEMISTRY METHOD 10/31/2024 2:52 PM [facility] Chloride 107 96 - 110 mmol/L LAB CHEMISTRY METHOD 10/31/2024 2:52 PM [facility] CO2 26 21 - 32 mmol/L LAB CHEMISTRY METHOD 10/31/2024 2:52 PM [facility] Anion Gap 6 3 - 11 LAB CHEMISTRY METHOD 10/31/2024 2:52 PM [facility] Glucose 87 70 - 100 mg/dL LAB CHEMISTRY METHOD 10/31/2024 2:52 PM [facility] BUN 15 5 - 25 mg/dL LAB CHEMISTRY METHOD 10/31/2024 2:52 PM [facility] Creatinine 0.79 0.50 - 1.10 mg/dL LAB CHEMISTRY METHOD [facility]/31[facility]2024 [facility] eGFR 98 >=60 mL/min/1. 73m2 LAB CHEMISTRY METHOD 10/31/2024 2:52 PM [facility] Comment:Calculation based on the Chronic Kidney Disease Epidemiology Collaboration (CKD-EPI) equation refit without adjustment for race. BUN/Creatinine Ratio 19.0 LAB CHEMISTRY METHOD 10/31/2024 2:52 PM [facility] Calcium 9.6 8.5 - 10.5 mg/dL LAB CHEMISTRY METHOD 10/31/2024 2:52 PM [facility] AST (SGOT) 30 10 - 42 unit/L LAB CHEMISTRY METHOD 10/31/2024 2:52 PM EDT [facility] ALT (SGPT) 28 10 - 60 unit/L LAB CHEMISTRY METHOD 10/31/2024 2:52 PM EDT [facility] Alkaline Phosphatase 69 42 - 121 unit/L LAB CHEMISTRY METHOD 10/31/2024 2:52 PM EDT [facility] Total Protein 7.7 6.0 - 8.0 g/dL LAB CHEMISTRY METHOD 10/31/2024 2:52 PM EDT [facility] Albumin 3.9 3.2 - 5.0 g/dL LAB CHEMISTRY METHOD 10/31/2024 2:52 PM EDT [facility] Total Bilirubin 0.4 0.0 - 1.4 mg/dL LAB CHEMISTRY METHOD 10/31/2024 2:52 PM EDT [facility] Blood Venous blood specimen / Unknown Venipuncture / Unknown 10/31/2024 12:27 PM EDT 10/31/2024 12:27 PM EDT Jose Azevedo MD LAB BLOOD ORDERABLES Final Resul t [facility] [address] [place] [address], from Last 3 Months Insurance [facility] Member Subscriber Plan / Payer (Ef fective 2013-Present) Name:BRETT RETANA Relation to Subscriber:Self Name:Brett Silverman Payer ID:[id number] Group ID:[id number] Type:Not on file Address: [address] [place] [phone] Care Teams Taximeter Repairer Relationship Specialty Start Date End Date Jose Azevedo MD [address] [place] [address] PCP - General 10/05/22
--- OUTSIDE RECORDS SUMMARY | 2024-11-20 09:05 | XMS_ITS | Clinical Summary ---
Author Organization [facility] Address [address] [facility] [address] [place] [phone] Phone Care Team Providers Care Dyer Assistant Name Role Phone Marilin Wong CAREER DEVELOPMENT DIRECTOR Unavailable Nicole Biswas NP Primary Care Provider Allergies No known active allergies Medications clonazePAM (KLONOPIN) 1 MG tablet Take 1 mg by mouth 2 (two) times a day as needed for anxiety. Active escitalopram oxalate (LEXAPRO) 10 MG tablet Take 10 mg by mouth daily. Active traZODone (DESYREL) 150 MG tablet Take 150 mg by mouth nightly. Active ALBUTEROL INHLIndications:as thma Inhale into the lungs 4 (four) times a day as needed. Active fluticasone (FLOVENT HFA) 110 mcg/actuation inhalerIndications :maintenance therapy for asthma Inhale 1 puff into the lungs 2 (two) times a day. Active zolpidem (AMBIEN) 5 MG tablet Take 5 mg by mouth nightly at bedtime as needed for sleep. Active mycophenolate mofetil (CELLCEPT) 500 mg tablet TOME MUSA TABLETA POR VIA ORAL DOS VECES AL ADRIANNE 180 tablet 1 Active predniSONE (DELTASONE) 10 MG tabletIndications: Lupus Take 1 tablet (10 mg total) by mouth daily with breakfast. 30 tablet 2 1 Active pregabalin (LYRICA) 150 MG capsuleIndications :Fibromyalgia TOME 1 CAPSULA POR VIA ORAL CADA MANANA AND 2 CAPSULES EVERY EVENING 90 capsule 1 1 Active hydrOXYchloroQUINE (PLAQUENIL) 200 mg tabletIndications: Systemic lupus erythematosus TOME MUSA TABLETA DOS VECES AL ADRIANNE 180 tablet 1 Active folic acid (FOLVITE) 1 MG tabletIndications: Systemic lupus erythematosus TOME MUSA TABLETA TODOS LOS PALOMARES 90 tablet 1 Active Active Problems Problem Noted Date Diagnosed Date Osteoarthritis of right foot 09/18/2020 Assessment & Plan (12/08/2020 3:21 PM EDT): This involves the first MTP joint which is intermittently painful and tender. Intra-articular steroids when necessary, well fitting supportive shoes with plenty of room in the toe box to accommodate the osteophytosis and loss in range of extension as well as heel cups or cushioned orthotics for the burning sensations in her soles. Assessment & Plan (09/18/2020 12:41 PM EDT): Patient has forefoot osteoarthritis involving the first [...] cortisone injections into the first MTP joints. Rotator cuff impingement syndrome of left should er 03/05/2020 Assessment & Plan (03/05/2020 2:46 PM EST): Pendulum and wall walking motion exercises as well as injection therapy today. Thyroid cyst 03/05/2020 Assessment & Plan (03/05/2020 2:47 PM EST): Reviewed thyroid ultrasound indicating a right lobar cyst with the left lobe of the thyroid should be. Isthmus is normal. Right lobe is normal. She will have an MRI of the neck for further examination of the thyroid gland. She will have thyroid function and antithyroid antibodies checked today. Spinal enthesopathy of cervical region 0 Assessment & Plan (02/18/2020 2:11 PM EDT): Intermittent radiculopathy and flare of enthesopathy will be treated with local injection therapy today. Thrush 02/18/2020 Assessment & Plan (02/18/2020 2:12 PM EDT): Though not overtly seen on exam today I would like to treat her for thrush given her dysphagia and long-term chronic glucocorticoid use. Cervical radiculitis 11/05/2019 Assessment & Plan (05/12/2020 11:15 AM EST): I reviewed the x-ray of her cervical spine. She is going to have an injection tomorrow. She will get back to move a phone call 1 week after the injection. No change in her lupus medication. Assessment & Plan (11/05/2019 11:31 AM EDT): She continues to have what I believed to be his cervical radiculopathy most likely in a C5-6 distribution on the left side. There is no winging of the scapula and no obvious atrophy of the scapulothoracic musculature but an MRI of the cervical spine is needed to further ascertain the level of nerve root compression. In the meantime today I refilled her CellCept and hydrocodone. I will call her with the results of the MRI scan. She should avoid any lifting bending or twisting. Lupus cerebritis 10/01/2019 Assessment & Plan (11/05/2019 11:32 AM EDT): Reviewed MRI indicating no evidence of vasculopathy or cerebritis. Patient is feeling somewhat better. No hallucinations, tics, or dark depressive moods. Assessment & Plan (10/01/2019 12:13 PM EDT): Patient with multisystem systemic lupus presents with worsening left-sided head pain, mild diplopia, left facial and ear pain which can awaken her from sleep at night. It has not been associated with head trauma, significant visual changes, current infection symptoms, or acute change in mental status. Lupus cerebritis is in the differential diagnosis and the best way to diagnose this would be a brain MRI. I will call her after these results are in. In the meantime I will empirically increase her prednisone from 2.5 mg daily to 10 mg twice a day. 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 No toxicity from the medications. Doing well. Check lab work. Previous lab work was reviewed. No evidence of infection or vasculopathy. Hospital Outpatient Visit on 07/17/2020 Component Date Value Ref Range Status QUANTIFERON-TB GOLD 07/17/2020 Negative Negative Final Comment: [...] Diagnosis of Tuberculosis in Adults and Children [Lewinsohn DM et. al. Clin. Infect. Dis. 2017;64(2):111-115]. The reference range for the 'TB1 Ag minus Nil Result' and 'TB2 Ag minus Nil Result' is an Interferon-gamma level <0.35 IU/mL. TB1 AG MINUS NIL 07/17/2020 NEG 0.06 IU/mL Final TB2 AG MINUS NIL 07/17/2020 NEG 0.06 IU/mL Final MITOGEN MINUS NIL 07/17/2020 7.08 IU/mL Final NIL RESULT 07/17/2020 0.11 IU/mL Final ANGIOTENSIN CONV. ENZ 07/17/2020 39 16 - 85 U/L Final C4 07/17/2020 17 12 - 39 mg/dL Final C3 07/17/2020 101 81 - 157 mg/dl Final ANTI DSDNA ANTIBODY 07/17/2020 POSITIVE AT 1:320 Final Comment: Courtney Hill M.D., Director Clinical Immunology Laboratory [id number] Normal: Negative at 1:10 Anti-los coyotes DNA Antibodies detected on Crithidia Luciliae Substrate [...] other rheumatic diseases or in drug-induced SLE. Byll-pvgpfp-vokqdkew DNA antibodies are usually detected in SLE patients with active disease, but not in those with spontaneous or induced remissions. Sequential testing of serum for the presence and titer of this antibody provides a cost-effective approach to following disease activity in many patients with SLE. C REACTIVE PROTEIN 07/17/2020 3.1 0.0 - 4.0 mg/L Final SODIUM 07/17/2020 139 133 - 146 mmol/L Final POTASSIUM 07/17/2020 4.2 3.3 - 5.1 mmol/L Final CHLORIDE 07/17/2020 105 96 - 108 mmol/L Final CO2 07/17/2020 26 21 - 35 mmol/L Final BUN 07/17/2020 10 6 - 19 mg/dL Final CREATININE 07/17/2020 0.80 0.5 - 1.5 mg/dL Final GLUCOSE 07/17/2020 103* 70 - 99 mg/dL Final ALBUMIN 07/17/2020 3.5* 3.9 - 4.8 g/dL Final TOTAL PROTEIN 07/17/2020 6.6 6.5 - 8.0 g/dL Final CALCIUM 07/17/2020 9.1 8.4 - 10.3 mg/dL Final ALKALINE PHOSPHATASE 07/17/2020 69 39 - 117 U/L Final TOTAL BILIRUBIN 07/17/2020 0.2 0.0 - 1.2 mg/dL Final AST 07/17/2020 18 0 - 37 U/L Final ALT 07/17/2020 15 0 - 40 U/L Final GLOBULIN 07/17/2020 3.1 1 - 4.8 g/dL Final EGFR 07/17/2020 96 >59 mL/min/1.73m2 Final Estimated glomerular filtration rate calculated using the CKD-EPI equation. ANION GAP 07/17/2020 12 10 - 20 mmol/L Final WBC 07/17/2020 7.14 4.00 - 11.00 K/uL Final RBC 07/17/2020 5.07 3.72 - 5.30 M/uL Final HGB 07/17/2020 13.9 10.6 - 15.5 g/dL Final HCT 07/17/2020 43.7 32.0 - 45.0 % Final PLT 07/17/2020 246 140 - 430 K/uL Final MCV 07/17/2020 86.2 78.0 - 97.0 fL Final MCH 07/17/2020 27.4 25.0 - 33.0 pg Final MCHC 07/17/2020 31.8* 32.0 - 36.0 g/dL Final RDW 07/17/2020 13.3 11.0 - 16.0 % Final MPV 07/17/2020 10.9 8.4 - 12.8 fl Final NRBC 07/17/2020 0.00 0 /100 WBCs Final ABSOLUTE NRBC 07/17/2020 0.00 0 K/uL Final DIFF METHOD 07/17/2020 Auto Final NEUTS 07/17/2020 45.2 43.0 - 75.0 % Final LYMPHS 07/17/2020 41.6 18.2 - 47.4 % Final MONOS 07/17/2020 10.5 4.00 - 11.00 % Final EOS 07/17/2020 1.8 0.0 - 8.0 % Final BASOS 07/17/2020 0.6 0.0 - 2.0 % Final Granulocytes, immature (%) 07/17/2020 0.3 0.0 - 0.9 % Final ABSOLUTE NEUTS 07/17/2020 3.23 1.80 - 7.70 K/uL Final ABSOLUTE LYMPHS 07/17/2020 2.97 1.00 - 3.10 K/uL Final ABSOLUTE MONOS 07/17/2020 0.75 0.20 - 0.80 K/uL Final ABSOLUTE EOS 07/17/2020 0.13 0.00 - 0.80 K/uL Final ABSOLUTE BASOS 07/17/2020 0.04 0.00 - 0.09 K/uL Final Granulocytes, immature 07/17/2020 0.02 0.00 - 0.05 K/uL Final Assessment & Plan (07/14/2020 11:25 AM EDT): Systemic lupus erythematosus on hydroxychloroquine and CellCept low-dose prednisone. Good compliance and tolerance of medication. No toxicity. No vasculopathy or nephritis. After full discussion risk and benefits Taper prednisone 2.5 mg Tuesday and Tuesday for 2 weeks then stop it. Control daily arthralgias with 400 with a grams of etodolac twice daily as needed. Lab work requested today. No visits with results within 3 Month(s) from this visit. Latest known visit with results is: Hospital Outpatient Visit on 03/07/2020 Component Date Value Ref Range Status THYROGLOBULIN ANTIBODY, S 03/07/2020 74* <4.0 IU/mL Final Comment: (NOTE) ADDITIONAL INFORMATION The thyroglobulin antibody testing method is an immunoenzymatic assay manufactured by [employer] and performed on the FIGS DXI 800. Values obtained from different assay methods or kits may be different and cannot be used interchangeably. The results cannot be interpreted as absolute evidence for the presence or absence of malignant disease. C REACTIVE PROTEIN 03/07/2020 6.5* 0.0 - 4.0 mg/L Final WBC 03/07/2020 9.77 4.00 - 11.00 K/uL Final Note Reference Range updates to all CBC and Differential results. RBC 03/07/2020 4.84 3.72 - 5.30 M/uL Final HGB 03/07/2020 13.5 10.6 - 15.5 g/dL Final Note updated Reference Ranges for all CBC and Differential results. HCT 03/07/2020 42.6 32.0 - 45.0 % Final PLT 03/07/2020 249 140 - 430 K/uL Final MCV 03/07/2020 88.0 78.0 - 97.0 fL Final MCH 03/07/2020 27.9 25.0 - 33.0 pg Final MCHC 03/07/2020 31.7* 32.0 - 36.0 g/dL Final RDW 03/07/2020 13.2 11.0 - 16.0 % Final MPV 03/07/2020 12.1 8.4 - 12.8 fl Final NRBC 03/07/2020 0.00 0 /100 WBCs Final ABSOLUTE NRBC 03/07/2020 0.00 0 K/uL Final DIFF METHOD 03/07/2020 Auto Final NEUTS 03/07/2020 54.7 43.0 - 75.0 % Final LYMPHS 03/07/2020 34.8 18.2 - 47.4 % Final MONOS 03/07/2020 8.5 4.00 - 11.00 % Final EOS 03/07/2020 1.3 0.0 - 8.0 % Final BASOS 03/07/2020 0.4 0.0 - 2.0 % Final Granulocytes, immature (%) 03/07/2020 0.3 0.0 - 0.9 % Final ABSOLUTE NEUTS 03/07/2020 5.34 1.80 - 7.70 K/uL Final ABSOLUTE LYMPHS 03/07/2020 3.40* 1.00 - 3.10 K/uL Final ABSOLUTE MONOS 03/07/2020 0.83* 0.20 - 0.80 K/uL Final ABSOLUTE EOS 03/07/2020 0.13 0.00 - 0.80 K/uL Final ABSOLUTE BASOS 03/07/2020 0.04 0.00 - 0.09 K/uL Final Granulocytes, immature 03/07/2020 0.03 0.00 - 0.05 K/uL Final FREE T4 03/07/2020 1.1 0.9 - 1.7 ng/dL Final TSH 03/07/2020 1.79 0.27 - 4.20 uIU/mL Final SODIUM 03/07/2020 140 133 - 146 mmol/L Final POTASSIUM 03/07/2020 3.8 3.3 - 5.1 mmol/L Final CHLORIDE 03/07/2020 107 96 - 108 mmol/L Final CO2 03/07/2020 24 21 - 35 mmol/L Final BUN 03/07/2020 9 6 - 19 mg/dL Final CREATININE 03/07/2020 0.80 0.5 - 1.5 mg/dL Final GLUCOSE 03/07/2020 112* 70 - 99 mg/dL Final ALBUMIN 03/07/2020 3.9 3.9 - 4.8 g/dL Final TOTAL PROTEIN 03/07/2020 6.7 6.5 - 8.0 g/dL Final CALCIUM 03/07/2020 8.9 8.4 - 10.3 mg/dL Final ALKALINE PHOSPHATASE 03/07/2020 94 39 - 117 U/L Final TOTAL BILIRUBIN 03/07/2020 <0.2 0.0 - 1.2 mg/dL Final AST 03/07/2020 20 0 - 37 U/L Final ALT 03/07/2020 13 0 - 40 U/L Final GLOBULIN 03/07/2020 2.8 1 - 4.8 g/dL Final EGFR 03/07/2020 96 >59 mL/min/1.73m2 Final Estimated glomerular filtration rate calculated using the CKD-EPI equation. ANION GAP 03/07/2020 13 10 - 20 mmol/L Final THYROPEROXIDASE AB, S 03/07/2020 6.0 <9.0 IU/mL Final Assessment & Plan (05/12/2020 11:14 AM EST): Patient with systemic lupus with polyarthritis, photosensitive skin eruptions, sensory neuropathy and stable nephritis. 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 Medications will continue unchanged consisting of hydroxychloroquine, low-dose prednisone, CellCept. She understands the immunosuppressive level of these combined treatments. She understands the need for retinal examinations due to the potential of retinal toxicity from hydroxychloroquine. I refilled her prednisone today and she will remain on low- dose 5 mg for now. Other medications will remain unchanged. Laboratory work was reviewed. Hospital Outpatient Visit on 03/07/2020 Component Date Value Ref Range Status THYROGLOBULIN ANTIBODY, S 03/07/2020 74* <4.0 IU/mL Final Comment: (NOTE) ADDITIONAL INFORMATION The thyroglobulin antibody testing method is an immunoenzymatic assay manufactured by [employer] and performed on the FIGS DXI 800. Values obtained from different assay methods or kits may be different and cannot be used interchangeably. The results cannot be interpreted as absolute evidence for the presence or absence of malignant disease. C REACTIVE PROTEIN 03/07/2020 6.5* 0.0 - 4.0 mg/L Final WBC 03/07/2020 9.77 4.00 - 11.00 K/uL Final Note Reference Range updates to all CBC and Differential results. RBC 03/07/2020 4.84 3.72 - 5.30 M/uL Final HGB 03/07/2020 13.5 10.6 - 15.5 g/dL Final Note updated Reference Ranges for all CBC and Differential results. HCT 03/07/2020 42.6 32.0 - 45.0 % Final PLT 03/07/2020 249 140 - 430 K/uL Final MCV 03/07/2020 88.0 78.0 - 97.0 fL Final MCH 03/07/2020 27.9 25.0 - 33.0 pg Final MCHC 03/07/2020 31.7* 32.0 - 36.0 g/dL Final RDW 03/07/2020 13.2 11.0 - 16.0 % Final MPV 03/07/2020 12.1 8.4 - 12.8 fl Final NRBC 03/07/2020 0.00 0 /100 WBCs Final ABSOLUTE NRBC 03/07/2020 0.00 0 K/uL Final DIFF METHOD 03/07/2020 Auto Final NEUTS 03/07/2020 54.7 43.0 - 75.0 % Final LYMPHS 03/07/2020 34.8 18.2 - 47.4 % Final MONOS 03/07/2020 8.5 4.00 - 11.00 % Final EOS 03/07/2020 1.3 0.0 - 8.0 % Final BASOS 03/07/2020 0.4 0.0 - 2.0 % Final Granulocytes, immature (%) 03/07/2020 0.3 0.0 - 0.9 % Final ABSOLUTE NEUTS 03/07/2020 5.34 1.80 - 7.70 K/uL Final ABSOLUTE LYMPHS 03/07/2020 3.40* 1.00 - 3.10 K/uL Final ABSOLUTE MONOS 03/07/2020 0.83* 0.20 - 0.80 K/uL Final ABSOLUTE EOS 03/07/2020 0.13 0.00 - 0.80 K/uL Final ABSOLUTE BASOS 03/07/2020 0.04 0.00 - 0.09 K/uL Final Granulocytes, immature 03/07/2020 0.03 0.00 - 0.05 K/uL Final FREE T4 03/07/2020 1.1 0.9 - 1.7 ng/dL Final TSH 03/07/2020 1.79 0.27 - 4.20 uIU/mL Final SODIUM 03/07/2020 140 133 - 146 mmol/L Final POTASSIUM 03/07/2020 3.8 3.3 - 5.1 mmol/L Final CHLORIDE 03/07/2020 107 96 - 108 mmol/L Final CO2 03/07/2020 24 21 - 35 mmol/L Final BUN 03/07/2020 9 6 - 19 mg/dL Final CREATININE 03/07/2020 0.80 0.5 - 1.5 mg/dL Final GLUCOSE 03/07/2020 112* 70 - 99 mg/dL Final ALBUMIN 03/07/2020 3.9 3.9 - 4.8 g/dL Final TOTAL PROTEIN 03/07/2020 6.7 6.5 - 8.0 g/dL Final CALCIUM 03/07/2020 8.9 8.4 - 10.3 mg/dL Final ALKALINE PHOSPHATASE 03/07/2020 94 39 - 117 U/L Final TOTAL BILIRUBIN 03/07/2020 <0.2 0.0 - 1.2 mg/dL Final AST 03/07/2020 20 0 - 37 U/L Final ALT 03/07/2020 13 0 - 40 U/L Final GLOBULIN 03/07/2020 2.8 1 - 4.8 g/dL Final EGFR 03/07/2020 96 >59 mL/min/1.73m2 Final Estimated glomerular filtration rate calculated using the CKD-EPI equation. ANION GAP 03/07/2020 13 10 - 20 mmol/L Final THYROPEROXIDASE AB, S 03/07/2020 6.0 <9.0 IU/mL Final Assessment & Plan (04/02/2020 2:17 PM EST): Patient with systemic lupus on low-dose prednisone at 5 mg daily, hydroxychloroquine, CellCept complaining of symptoms compatible with radiculopathy from the cervical region. She is going to see a pain management person tomorrow and will likely have a meeting on Zoom and further diagnostics will be scheduled based on that meeting. I would prefer that she have an MRI of the cervical spine. Otherwise her lupus is quiet. I reviewed her lab work. She has a mild elevation of her C-reactive protein which is normal for her. We will continue her on a combination of Plaquenil, CellCept, and low-dose prednisone. To further investigate her facial pain she will have a CT scan through the sinuses and orbits. She will also have an ENT consult arranged by primary care. Medications will remain unchanged for now. She is also having a consultation with an brush maker machine to review the abnormal thyroid ultrasound. 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 She has normal thyroid function. Through an voice writing reporter 28 minutes was spent in this visit of which 50% of the time was spent in direct conversation with the patient through the voice writing reporter going through the meaning of the multiple consults that were sent up for ENT, pain management and endocrinology as well as going over the rationale for these as well as the CT scan through her sinuses. All questions were answered. Hospital Outpatient Visit on 03/07/2020 Component Date Value Ref Range Status THYROGLOBULIN ANTIBODY, S 03/07/2020 74* <4.0 IU/mL Final Comment: (NOTE) ADDITIONAL INFORMATION The thyroglobulin antibody testing method is an immunoenzymatic assay manufactured by [employer] and performed on the FIGS DXI 800. Values obtained from different assay methods or kits may be different and cannot be used interchangeably. The results cannot be interpreted as absolute evidence for the presence or absence of malignant disease. C REACTIVE PROTEIN 03/07/2020 6.5* 0.0 - 4.0 mg/L Final WBC 03/07/2020 9.77 4.00 - 11.00 K/uL Final Note Reference Range updates to all CBC and Differential results. RBC 03/07/2020 4.84 3.72 - 5.30 M/uL Final HGB 03/07/2020 13.5 10.6 - 15.5 g/dL Final Note updated Reference Ranges for all CBC and Differential results. HCT 03/07/2020 42.6 32.0 - 45.0 % Final PLT 03/07/2020 249 140 - 430 K/uL Final MCV 03/07/2020 88.0 78.0 - 97.0 fL Final MCH 03/07/2020 27.9 25.0 - 33.0 pg Final MCHC 03/07/2020 31.7* 32.0 - 36.0 g/dL Final RDW 03/07/2020 13.2 11.0 - 16.0 % Final MPV 03/07/2020 12.1 8.4 - 12.8 fl Final NRBC 03/07/2020 0.00 0 /100 WBCs Final ABSOLUTE NRBC 03/07/2020 0.00 0 K/uL Final DIFF METHOD 03/07/2020 Auto Final NEUTS 03/07/2020 54.7 43.0 - 75.0 % Final LYMPHS 03/07/2020 34.8 18.2 - 47.4 % Final MONOS 03/07/2020 8.5 4.00 - 11.00 % Final EOS 03/07/2020 1.3 0.0 - 8.0 % Final BASOS 03/07/2020 0.4 0.0 - 2.0 % Final Granulocytes, immature (%) 03/07/2020 0.3 0.0 - 0.9 % Final ABSOLUTE NEUTS 03/07/2020 5.34 1.80 - 7.70 K/uL Final ABSOLUTE LYMPHS 03/07/2020 3.40* 1.00 - 3.10 K/uL Final ABSOLUTE MONOS 03/07/2020 0.83* 0.20 - 0.80 K/uL Final ABSOLUTE EOS 03/07/2020 0.13 0.00 - 0.80 K/uL Final ABSOLUTE BASOS 03/07/2020 0.04 0.00 - 0.09 K/uL Final Granulocytes, immature 03/07/2020 0.03 0.00 - 0.05 K/uL Final FREE T4 03/07/2020 1.1 0.9 - 1.7 ng/dL Final TSH 03/07/2020 1.79 0.27 - 4.20 uIU/mL Final SODIUM 03/07/2020 140 133 - 146 mmol/L Final POTASSIUM 03/07/2020 3.8 3.3 - 5.1 mmol/L Final CHLORIDE 03/07/2020 107 96 - 108 mmol/L Final CO2 03/07/2020 24 21 - 35 mmol/L Final BUN 03/07/2020 9 6 - 19 mg/dL Final CREATININE 03/07/2020 0.80 0.5 - 1.5 mg/dL Final GLUCOSE 03/07/2020 112* 70 - 99 mg/dL Final ALBUMIN 03/07/2020 3.9 3.9 - 4.8 g/dL Final TOTAL PROTEIN 03/07/2020 6.7 6.5 - 8.0 g/dL Final CALCIUM 03/07/2020 8.9 8.4 - 10.3 mg/dL Final ALKALINE PHOSPHATASE 03/07/2020 94 39 - 117 U/L Final TOTAL BILIRUBIN 03/07/2020 <0.2 0.0 - 1.2 mg/dL Final AST 03/07/2020 20 0 - 37 U/L Final ALT 03/07/2020 13 0 - 40 U/L Final GLOBULIN 03/07/2020 2.8 1 - 4.8 g/dL Final EGFR 03/07/2020 96 >59 mL/min/1.73m2 Final Estimated glomerular filtration rate calculated using the CKD-EPI equation. ANION GAP 03/07/2020 13 10 - 20 mmol/L Final THYROPEROXIDASE AB, S 03/07/2020 6.0 <9.0 IU/mL Final Assessment & Plan (03/05/2020 2:46 PM EST): Patient with systemic lupus erythematosus will continue to be treated with hydroxychloroquine at 400 mg daily as well as CellCept at 500 mg 3 times daily. She will continue prednisone now at 5 mg daily. New lab work will be done today. No evidence of ongoing infection. No change in medications yet. Assessment & Plan (02/18/2020 2:11 PM EDT): Patient's SLE is stable under treatment and she will remain on hydroxychloroquine I am and CellCept as well as Benlysta. She is also on 5 mg of prednisone daily. These medications will remain unchanged. Assessment & Plan (11/05/2019 11:31 AM EDT): All lab work was reviewed and is essentially normal indicating no new active flares of lupus. The patient will remain on current medication regimen without change. Questions were answered. Hospital Outpatient Visit on 09/19/2019 Component Date Value Ref Range Status QUANTIFERON-TB GOLD 09/19/2019 Negative Negative Final Comment: (NOTE) No interferon-gamma response to M. tuberculosis antigens was detected. Infection with M. tuberculosis is unlikely. A single negative result does not exclude infection with M. tuberculosis. In patients at high risk for M.tuberculosis infection, a second test should be considered in accordance with the 2017 ATS/IDSA/CDC Clinical Practice Guidelines for Diagnosis of Tuberculosis in Adults and Children [Donna PEREZ et. al. Clin. Infect. Dis. 2017;64(2):111-115]. The reference range for the 'TB1 Ag minus Nil Result' and 'TB2 Ag minus Nil Result' is an Interferon-gamma level <0.35 IU/mL. TB1 AG MINUS NIL 09/19/2019 0.01 IU/mL Final TB2 AG MINUS NIL 09/19/2019 0.01 IU/mL Final MITOGEN MINUS NIL 09/19/2019 6.49 IU/mL Final NIL RESULT 09/19/2019 0.02 IU/mL Final C4 09/19/2019 18 12 - 39 mg/dL Final C3 09/19/2019 119 81 - 157 mg/dl Final COLOR 09/19/2019 Yellow Yellow Final CLARITY 09/19/2019 HAZY Final GLUCOSE 09/19/2019 Negative Negative Final BILI 09/19/2019 Negative Negative Final KETONES 09/19/2019 Negative Negative Final SPECIFIC GRAVITY 09/19/2019 >1.030 1.005 - 1.030 Final BLOOD 09/19/2019 Negative Negative Final PH 09/19/2019 6.0 5.0 - 8.0 Final Protein-UA 09/19/2019 Negative Negative Final NITRITE 09/19/2019 Negative Negative Final Leukocyte esterase, ur 09/19/2019 Negative Negative Final SODIUM 09/19/2019 139 133 - 146 mmol/L Final POTASSIUM 09/19/2019 3.7 3.3 - 5.1 mmol/L Final CHLORIDE 09/19/2019 105 96 - 108 mmol/L Final CO2 09/19/2019 23 21 - 35 mmol/L Final BUN 09/19/2019 12 6 - 19 mg/dL Final CREATININE 09/19/2019 0.90 0.5 - 1.5 mg/dL Final GLUCOSE 09/19/2019 93 70 - 99 mg/dL Final ALBUMIN 09/19/2019 4.0 3.9 - 4.8 g/dL Final TOTAL PROTEIN 09/19/2019 7.2 6.5 - 8.0 g/dL Final CALCIUM 09/19/2019 8.8 8.4 - 10.3 mg/dL Final ALKALINE PHOSPHATASE 09/19/2019 64 39 - 117 U/L Final TOTAL BILIRUBIN 09/19/2019 0.2 0.0 - 1.2 mg/dL Final AST 09/19/2019 18 0 - 37 U/L Final ALT 09/19/2019 17 0 - 40 U/L Final GLOBULIN 09/19/2019 3.2 1 - 4.8 g/dL Final EGFR 09/19/2019 83 >59 mL/min/1.73m2 Final If patient is black, multiply result by 1.159. Estimated glomerular filtration rate calculated using the CKD-EPI equation. ANION GAP 09/19/2019 15 10 - 20 mmol/L Final C REACTIVE PROTEIN 09/19/2019 4.6* 0.0 - 4.0 mg/L Final WBC 09/19/2019 7.42 4.00 - 11.00 K/uL Final Note Reference Range updates to all CBC and Differential results. RBC 09/19/2019 4.75 3.72 - 5.30 M/uL Final HGB 09/19/2019 13.3 10.6 - 15.5 g/dL Final Note updated Reference Ranges for all CBC and Differential results. HCT 09/19/2019 39.9 32.0 - 45.0 % Final PLT 09/19/2019 245 140 - 430 K/uL Final MCV 09/19/2019 84.0 78.0 - 97.0 fL Final MCH 09/19/2019 28.0 25.0 - 33.0 pg Final MCHC 09/19/2019 33.3 32.0 - 36.0 g/dL Final RDW 09/19/2019 13.3 11.0 - 16.0 % Final MPV 09/19/2019 10.7 8.4 - 12.8 fl Final NRBC 09/19/2019 0.00 0 /100 WBCs Final ABSOLUTE NRBC 09/19/2019 0.00 0 K/uL Final DIFF METHOD 09/19/2019 Auto Final NEUTS 09/19/2019 48.5 43.0 - 75.0 % Final LYMPHS 09/19/2019 38.0 18.2 - 47.4 % Final MONOS 09/19/2019 11.1* 4.00 - 11.00 % Final EOS 09/19/2019 1.3 0.0 - 8.0 % Final BASOS 09/19/2019 0.7 0.0 - 2.0 % Final Granulocytes, immature (%) 09/19/2019 0.4 0.0 - 0.9 % Final ABSOLUTE NEUTS 09/19/2019 3.60 1.80 - 7.70 K/uL Final ABSOLUTE LYMPHS 09/19/2019 2.82 1.00 - 3.10 K/uL Final ABSOLUTE MONOS 09/19/2019 0.82* 0.20 - 0.80 K/uL Final ABSOLUTE EOS 09/19/2019 0.10 0.00 - 0.80 K/uL Final ABSOLUTE BASOS 09/19/2019 0.05 0.00 - 0.09 K/uL Final Granulocytes, immature 09/19/2019 0.03 0.00 - 0.05 K/uL Final Assessment & Plan (10/01/2019 12:14 PM EDT): Patient with systemic lupus on Benlysta, Plaquenil, and prednisone doing fair. Neuropathy controlled with Lyrica. New symptoms about the head and neck are suggestive but not diagnostic of cerebritis. It is somewhat reassuring to review her labs done recently showing a stable CBC with differential, no elevation in her CRP, her liver function and creatinine are normal and there were no signs of active infection. 28 minutes was spent on this visit in direct contact with the patient. There were no signs of medication induced toxicity. Hospital Outpatient Visit on 09/19/2019 Component Date Value Ref Range Status QUANTIFERON-TB GOLD 09/19/2019 Negative Negative Final Comment: (NOTE) No interferon-gamma response to M. tuberculosis antigens was detected. Infection with M. tuberculosis is unlikely. A single negative result does not exclude infection with M. tuberculosis. In patients at high risk for M.tuberculosis infection, a second test should be considered in accordance with the 2017 ATS/IDSA/CDC Clinical Practice Guidelines for Diagnosis of Tuberculosis in Adults and Children [Carlos Enriqueinstannern CHRIS et. al. Clin. Infect. Dis. 2017;64(2):111-115]. The reference range for the 'TB1 Ag minus Nil Result' and 'TB2 Ag minus Nil Result' is an Interferon-gamma level <0.35 IU/mL. TB1 AG MINUS NIL 09/19/2019 0.01 IU/mL Final TB2 AG MINUS NIL 09/19/2019 0.01 IU/mL Final MITOGEN MINUS NIL 09/19/2019 6.49 IU/mL Final NIL RESULT 09/19/2019 0.02 IU/mL Final C4 09/19/2019 18 12 - 39 mg/dL Final C3 09/19/2019 119 81 - 157 mg/dl Final COLOR 09/19/2019 Yellow Yellow Final CLARITY 09/19/2019 HAZY Final GLUCOSE 09/19/2019 Negative Negative Final BILI 09/19/2019 Negative Negative Final KETONES 09/19/2019 Negative Negative Final SPECIFIC GRAVITY 09/19/2019 >1.030 1.005 - 1.030 Final BLOOD 09/19/2019 Negative Negative Final PH 09/19/2019 6.0 5.0 - 8.0 Final Protein-UA 09/19/2019 Negative Negative Final NITRITE 09/19/2019 Negative Negative Final Leukocyte esterase, ur 09/19/2019 Negative Negative Final SODIUM 09/19/2019 139 133 - 146 mmol/L Final POTASSIUM 09/19/2019 3.7 3.3 - 5.1 mmol/L Final CHLORIDE 09/19/2019 105 96 - 108 mmol/L Final CO2 09/19/2019 23 21 - 35 mmol/L Final BUN 09/19/2019 12 6 - 19 mg/dL Final CREATININE 09/19/2019 0.90 0.5 - 1.5 mg/dL Final GLUCOSE 09/19/2019 93 70 - 99 mg/dL Final ALBUMIN 09/19/2019 4.0 3.9 - 4.8 g/dL Final TOTAL PROTEIN 09/19/2019 7.2 6.5 - 8.0 g/dL Final CALCIUM 09/19/2019 8.8 8.4 - 10.3 mg/dL Final ALKALINE PHOSPHATASE 09/19/2019 64 39 - 117 U/L Final TOTAL BILIRUBIN 09/19/2019 0.2 0.0 - 1.2 mg/dL Final AST 09/19/2019 18 0 - 37 U/L Final ALT 09/19/2019 17 0 - 40 U/L Final GLOBULIN 09/19/2019 3.2 1 - 4.8 g/dL Final EGFR 09/19/2019 83 >59 mL/min/1.73m2 Final If patient is black, multiply result by 1.159. Estimated glomerular filtration rate calculated using the CKD-EPI equation. ANION GAP 09/19/2019 15 10 - 20 mmol/L Final C REACTIVE PROTEIN 09/19/2019 4.6* 0.0 - 4.0 mg/L Final WBC 09/19/2019 7.42 4.00 - 11.00 K/uL Final Note Reference Range updates to all CBC and Differential results. RBC 09/19/2019 4.75 3.72 - 5.30 M/uL Final HGB 09/19/2019 13.3 10.6 - 15.5 g/dL Final Note updated Reference Ranges for all CBC and Differential results. HCT 09/19/2019 39.9 32.0 - 45.0 % Final PLT 09/19/2019 245 140 - 430 K/uL Final MCV 09/19/2019 84.0 78.0 - 97.0 fL Final MCH 09/19/2019 28.0 25.0 - 33.0 pg Final MCHC 09/19/2019 33.3 32.0 - 36.0 g/dL Final RDW 09/19/2019 13.3 11.0 - 16.0 % Final MPV 09/19/2019 10.7 8.4 - 12.8 fl Final NRBC 09/19/2019 0.00 0 /100 WBCs Final ABSOLUTE NRBC 09/19/2019 0.00 0 K/uL Final DIFF METHOD 09/19/2019 Auto Final NEUTS 09/19/2019 48.5 43.0 - 75.0 % Final LYMPHS 09/19/2019 38.0 18.2 - 47.4 % Final MONOS 09/19/2019 11.1* 4.00 - 11.00 % Final EOS 09/19/2019 1.3 0.0 - 8.0 % Final BASOS 09/19/2019 0.7 0.0 - 2.0 % Final Granulocytes, immature (%) 09/19/2019 0.4 0.0 - 0.9 % Final ABSOLUTE NEUTS 09/19/2019 3.60 1.80 - 7.70 K/uL Final ABSOLUTE LYMPHS 09/19/2019 2.82 1.00 - 3.10 K/uL Final ABSOLUTE MONOS 09/19/2019 0.82* 0.20 - 0.80 K/uL Final ABSOLUTE EOS 09/19/2019 0.10 0.00 - 0.80 K/uL Final ABSOLUTE BASOS 09/19/2019 0.05 0.00 - 0.09 K/uL Final Granulocytes, immature 09/19/2019 0.03 0.00 - 0.05 K/uL Final Assessment & Plan (05/03/2019 12:10 PM EST): Patient with SLE active but stable on monthly infusions of Benlysta and daily use of hydroxychloroquine low-dose glucocorticoids and CellCept 5 mg twice daily. Discussed potential retinal problems. Strongly encouraged follow-up with ophthalmology to rule out retinal toxicity but no overt symptoms. Recent lab work was reviewed. No signs of nephropathy. Hospital Outpatient Visit on 03/20/2019 Component Date Value Ref Range Status ANTI DSDNA ANTIBODY 03/20/2019 POSITIVE AT 1:320 Final Comment: Performing Physician, Deep Mac M.D., [id number] Normal: Negative at 1:10 Anti-los coyotes DNA Antibodies detected on Crithidia Luciliae Substrate [...] other rheumatic diseases or in drug-induced SLE. Cyfn-biypri-uvwyipfx DNA antibodies are usually detected in SLE patients with active disease, but not in those with sponta neous or induced remissions. Sequential testing of serum for the presence and titer of this antibody provides a cost-effective approach to following disease activity in many patients with SLE. C4 03/20/2019 19 12 - 39 mg/dL Final C3 03/20/2019 112 81 - 157 mg/dl Final SODIUM 03/20/2019 140 133 - 146 mmol/L Final POTASSIUM 03/20/2019 3.9 3.3 - 5.1 mmol/L Final CHLORIDE 03/20/2019 104 96 - 108 mmol/L Final CO2 03/20/2019 23 21 - 35 mmol/L Final BUN 03/20/2019 9 6 - 19 mg/dL Final CREATININE 03/20/2019 0.70 0.5 - 1.5 mg/dL Final GLUCOSE 03/20/2019 88 70 - 99 mg/dL Final ALBUMIN 03/20/2019 3.7* 3.9 - 4.8 g/dL Final TOTAL PROTEIN 03/20/2019 7.0 6.5 - 8.0 g/dL Final CALCIUM 03/20/2019 9.0 8.4 - 10.3 mg/dL Final ALKALINE PHOSPHATASE 03/20/2019 65 39 - 117 U/L Final TOTAL BILIRUBIN 03/20/2019 <0.2 0.0 - 1.2 mg/dL Final AST 03/20/2019 19 0 - 37 U/L Final ALT 03/20/2019 15 0 - 40 U/L Final GLOBULIN 03/20/2019 3.3 1 - 4.8 g/dL Final EGFR 03/20/2019 113 >59 mL/min/1.73m2 Final If patient is black, multiply result by 1.159. Estimated glomerular filtration rate calculated using the CKD-EPI equation. ANION GAP 03/20/2019 17 10 - 20 mmol/L Final C REACTIVE PROTEIN 03/20/2019 3.2 0.0 - 4.0 mg/L Final WBC 03/20/2019 7.55 3.40 - 11.20 K/uL Final RBC 03/20/2019 4.76 3.80 - 4.80 M/uL Final HGB 03/20/2019 13.5 12.0 - 15.0 g/dL Final HCT 03/20/2019 41.2 36.0 - 46.0 % Final PLT 03/20/2019 239 130 - 400 K/uL Final MCV 03/20/2019 86.6 79.0 - 98.0 fL Final MCH 03/20/2019 28.4 27.0 - 34.8 pg Final MCHC 03/20/2019 32.8 31.5 - 36.0 g/dL Final RDW 03/20/2019 13.0 10.8 - 14.6 % Final MPV 03/20/2019 11.8 9.4 - 12.4 fl Final NRBC 03/20/2019 0.00 0.00 /100 WBCs Final ABSOLUTE NRBC 03/20/2019 0.00 0.00 K/uL Final DIFF METHOD 03/20/2019 Auto Final NEUTS 03/20/2019 45.6 45.30 - 77.70 % Final LYMPHS 03/20/2019 42.6* 12.30 - 39.70 % Final MONOS 03/20/2019 9.4 4.10 - 12.80 % Final EOS 03/20/2019 1.6 0 - 7.2 % Final BASOS 03/20/2019 0.4 0 - 2.80 % Final Granulocytes, immature (%) 03/20/2019 0.4 0.0 - 0.9 % Final ABSOLUTE NEUTS 03/20/2019 3.44 1.40 - 7.70 K/uL Final ABSOLUTE LYMPHS 03/20/2019 3.22* 0.60 - 3.20 K/uL Final ABSOLUTE MONOS 03/20/2019 0.71* 0.11 - 0.59 K/uL Final ABSOLUTE EOS 03/20/2019 0.12 0.01 - 0.50 K/uL Final ABSOLUTE BASOS 03/20/2019 0.03 0.00 - 0.08 K/uL Final Granulocytes, immature 03/20/2019 0.03 0.00 - 0.05 K/uL Final Assessment & Plan (03/20/2019 3:30 PM EST): She appears to be stable having a flareup of fibromyalgia with multiple tender points but I cannot rule out a mild lumbar radiculopathy. She will be referred to physical therapy to evaluate and treat and temporarily I am increasing her prednisone from 3 mg to 10 mg daily sending a new prescription today. She will remain stable on Plaquenil at 200 mg daily, CellCept at 500 g twice daily, and monthly infusions of Benlysta which she has been tolerating well. She is protected with a flu vaccine. Laboratory work will be done today. Previous laboratory work was reviewed with her and greater than 50% of this 28-minute visit was spent in cmys-tc-afgr conversation going over the natural history and treatment of both of fibromyalgia and systemic lupus, going over her medication list, and the risks and benefits of continued use of current treatment. This was all done through a pbx inspector. All questions were answered. No visits with results within 3 Month(s) from this visit. Latest known visit with results is: Hospital Outpatient Visit on 12/12/2018 Component Date Value Ref Range Status C REACTIVE PROTEIN 12/12/2018 4.2* 0.0 - 4.0 mg/L Final SODIUM 12/12/2018 140 133 - 146 mmol/L Final POTASSIUM 12/12/2018 3.6 3.3 - 5.1 mmol/L Final CHLORIDE 12/12/2018 108 96 - 108 mmol/L Final CO2 12/12/2018 24 21 - 35 mmol/L Final BUN 12/12/2018 6 6 - 19 mg/dL Final CREATININE 12/12/2018 0.60 0.5 - 1.5 mg/dL Final GLUCOSE 12/12/2018 94 70 - 99 mg/dL Final ALBUMIN 12/12/2018 3.7* 3.9 - 4.8 g/dL Final TOTAL PROTEIN 12/12/2018 6.4* 6.5 - 8.0 g/dL Final CALCIUM 12/12/2018 9.1 8.4 - 10.3 mg/dL Final ALKALINE PHOSPHATASE 12/12/2018 54 39 - 117 U/L Final TOTAL BILIRUBIN 12/12/2018 0.3 0.0 - 1.2 mg/dL Final AST 12/12/2018 17 0 - 37 U/L Final ALT 12/12/2018 12 0 - 40 U/L Final GLOBULIN 12/12/2018 2.7 1 - 4.8 g/dL Final EGFR 12/12/2018 120 >59 mL/min/1.73m2 Final If patient is black, multiply result by 1.159. Estimated glomerular filtration rate calculated using the CKD-EPI equation. ANION GAP 12/12/2018 12 10 - 20 mmol/L Final WBC 12/12/2018 6.60 3.40 - 11.20 K/uL Final RBC 12/12/2018 4.66 3.80 - 4.80 M/uL Final HGB 12/12/2018 12.9 12.0 - 15.0 g/dL Final HCT 12/12/2018 40.9 36.0 - 46.0 % Final PLT 12/12/2018 222 130 - 400 K/uL Final MCV 12/12/2018 87.8 79.0 - 98.0 fL Final MCH 12/12/2018 27.7 27.0 - 34.8 pg Final MCHC 12/12/2018 31.5 31.5 - 36.0 g/dL Final RDW 12/12/2018 13.7 10.8 - 14.6 % Final MPV 12/12/2018 11.8 9.4 - 12.4 fl Final NRBC 12/12/2018 0.00 0.00 /100 WBCs Final ABSOLUTE NRBC 12/12/2018 0.00 0.00 K/uL Final DIFF METHOD 12/12/2018 Auto Final NEUTS 12/12/2018 43.7* 45.30 - 77.70 % Final LYMPHS 12/12/2018 43.5* 12.30 - 39.70 % Final MONOS 12/12/2018 10.2 4.10 - 12.80 % Final EOS 12/12/2018 1.7 0 - 7.2 % Final BASOS 12/12/2018 0.6 0 - 2.80 % Final Granulocytes, immature (%) 12/12/2018 0.3 0.0 - 0.9 % Final ABSOLUTE NEUTS 12/12/2018 2.89 1.40 - 7.70 K/uL Final ABSOLUTE LYMPHS 12/12/2018 2.87 0.60 - 3.20 K/uL Final ABSOLUTE MONOS 12/12/2018 0.67* 0.11 - 0.59 K/uL Final ABSOLUTE EOS 12/12/2018 0.11 0.01 - 0.50 K/uL Final ABSOLUTE BASOS 12/12/2018 0.04 0.00 - 0.08 K/uL Final Granulocytes, immature 12/12/2018 0.02 0.00 - 0.05 K/uL Final Assessment & Plan (12/12/2018 12:59 PM EDT): Systemic lupus with pleuropericarditis and polyarthralgias. Get x-rays of both feet today and report back to her. Obtain new lab work. We will fitting supportive shoes with good shock absorption and plenty of room in the toe box to accommodate the forefoot along with metatarsal cushions and considering that at least some of this may be secondary to her worsening sensory neuropathy I will increasing her Lyrica to 150 mg twice daily. She will let me know how this goes after 1 week of treatment. Other medications will remain unchanged. I refilled her hydrocodone at 5 mg daily as needed. This dosage will not increase. She is tolerating Benlysta well. She is having no toxicity from the Plaquenil. She understands the need for a flu vaccine in January. No visits with results within 3 Month(s) from this visit. Latest known visit with results is: Hospital Outpatient Visit on 05/29/2018 Component Date Value Ref Range Status SODIUM 05/29/2018 141 133 - 146 mmol/L Final POTASSIUM 05/29/2018 4.0 3.3 - 5.1 mmol/L Final CHLORIDE 05/29/2018 103 96 - 108 mmol/L Final CO2 05/29/2018 25 21 - 35 mmol/L Final BUN 05/29/2018 8 6 - 19 mg/dL Final CREATININE 05/29/2018 0.80 0.5 - 1.5 mg/dL Final GLUCOSE 05/29/2018 76 70 - 99 mg/dL Final ALBUMIN 05/29/2018 3.9 3.9 - 4.8 g/dL Final TOTAL PROTEIN 05/29/2018 6.9 6.5 - 8.0 g/dL Final CALCIUM 05/29/2018 8.9 8.4 - 10.3 mg/dL Final ALKALINE PHOSPHATASE 05/29/2018 62 39 - 117 U/L Final TOTAL BILIRUBIN 05/29/2018 0.2 0.0 - 1.2 mg/dL Final AST 05/29/2018 15 0 - 37 U/L Final ALT 05/29/2018 14 0 - 40 U/L Final GLOBULIN 05/29/2018 3.0 1 - 4.8 g/dL Final EGFR 05/29/2018 97 >59 mL/min/1.73m2 Final If patient is black, multiply result by 1.159. Estimated glomerular filtration rate calculated using the CKD-EPI equation. ANION GAP 05/29/2018 17 10 - 20 mmol/L Final C REACTIVE PROTEIN 05/29/2018 4.3* 0.0 - 4.0 mg/L Final WBC 05/29/2018 7.90 3.40 - 11.20 K/uL Final RBC 05/29/2018 4.89* 3.80 - 4.80 M/uL Final HGB 05/29/2018 13.4 12.0 - 15.0 g/dL Final HCT 05/29/2018 41.7 36.0 - 46.0 % Final PLT 05/29/2018 230 130 - 400 K/uL Final MCV 05/29/2018 85.3 79.0 - 98.0 fL Final MCH 05/29/2018 27.4 27.0 - 34.8 pg Final MCHC 05/29/2018 32.1 31.5 - 36.0 g/dL Final RDW 05/29/2018 13.2 10.8 - 14.6 % Final MPV 05/29/2018 11.8 9.4 - 12.4 fl Final NRBC 05/29/2018 0.00 0.00 /100 WBCs Final ABSOLUTE NRBC 05/29/2018 0.00 0.00 K/uL Final DIFF METHOD 05/29/2018 Auto Final NEUTS 05/29/2018 50.4 45.30 - 77.70 % Final LYMPHS 05/29/2018 39.4 12.30 - 39.70 % Final MONOS 05/29/2018 8.6 4.10 - 12.80 % Final EOS 05/29/2018 0.8 0 - 7.2 % Final BASOS 05/29/2018 0.4 0 - 2.80 % Final Granulocytes, immature (%) 05/29/2018 0.4 0.0 - 0.9 % Final ABSOLUTE NEUTS 05/29/2018 3.99 1.40 - 7.70 K/uL Final ABSOLUTE LYMPHS 05/29/2018 3.11 0.60 - 3.20 K/uL Final ABSOLUTE MONOS 05/29/2018 0.68* 0.11 - 0.59 K/uL Final ABSOLUTE EOS 05/29/2018 0.06 0.01 - 0.50 K/uL Final ABSOLUTE BASOS 05/29/2018 0.03 0.00 - 0.08 K/uL Final Granulocytes, immature 05/29/2018 0.03 0.00 - 0.05 K/uL Final Assessment & Plan (05/29/2018 1:29 PM EST): Patient has active systemic lupus. She is responding to the medications. She is on the lowest dose of prednisone and she has been in a long time. I would like to continue her on 2 mg a day. Her doses of Benlysta and CellCept will remain unchanged as well. She will continue on a low-dose of gabapentin at night, Voltaren gel when needed, hydroxychloroquine once daily with instructions to have an eye examination to rule out retinal toxicity, and occasional hydrocodone. Signs of cerebritis or vasculitis. Reviewed recent lab work showing creatinine stable at 0.7 with an alkaline phosphatase of 59 and an AST of 15 with an ALT of 11. Her CBC with differential showed no anemia. Her white count was stable. Assessment & Plan (03/07/2018 4:08 PM EST): Systemic lupus is stable on hydroxychloroquine , prednisone, and Benlysta. Because of her immunosuppressed status she likely has acquired herpes zoster and I explained to her the natural history of this from chickenpox infestation in the contagious factor involved with people who have not had chickenpox or women as chickenpox infection during can cause malformation. She understands this. We talked about good hygiene for the area to avoid superinfection. I refilled her Vicodin today. She will stay on the Lyrica. And after full discussion of risks and benefits she will take 1000 mg of valacyclovir 3 times daily for 7 days. Greater than 50% of this 28-minute visit was spent in tipt-bk-bblx conversation with the patient going over the need for flu vaccine, the natural history of shingles, and risks and benefits of current medication regimen. Assessment & Plan (02/16/2018 3:46 PM EDT): While active and under treatment there is no evidence of central nervous system involvement or glomerulonephritis. Assessment & Plan (12/15/2017 2:29 PM EDT): Marked by a nonerosive nondeforming polyarthritis, subacute cutaneous lupus, alopecia, Raynaud's phenomenon xerostomia. Prednisone will be increased to 10 mg twice daily for the taper down to 5 mg daily over the next 3 weeks mostly for control of her flare of skin lesions. CellCept, Plaquenil, and Benlysta will remain unchanged. Lab work will be done today. Fall and fracture prevention strategies were discussed. 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 She will also continue on 1500 mg of CellCept a day. Her fibromyalgia she will continue on 150 mg of Lyrica at bedtime. I reviewed lab work done on the last visit indicating a C-reactive protein of 0.6 with a complement level CIII 1 07 and a C4 level of 14 with a hemoglobin of 13 and a hematocrit of 41.1 with a white count of 9100 with a normal differential and platelet count of 262,000. Lab work will be checked today. All questions were answered. Fell and fracture prevention strategies as well as the natural history and treatment of lupus was discussed with her through voice writing reporter. I think she is doing reasonably well and has shown stabilization on current regimen. Assessment & Plan (06/01/2017 1:54 PM EST): Patient is doing reasonably well with active disease and a history of glomerulonephritis, pleuropericarditis, subacute cutaneous lupus, and inflammatory arthritis. Her therapy plan for the usage of Benlysta was updated today. She will continue on low-dose prednisone now down to 3 mg daily, hydroxychloroquine, and CellCept. Risks and benefits of current medications were discussed with her. She has already had a flu vaccine. Medications will remain unchanged. Previous lab work was reviewed with her showing a stable normochromic normocytic anemia, normal white count with differential, normal chemistry profile and liver function tests. All of her questions were answered. Greater than 50% of this 28 minute visit was spent in hrbi-jc-blqu conversation with the patient going over the risks and benefits of her medication and the natural history of systemic lupus. Assessment & Plan (03/23/2017 3:27 PM EST): Patient is doing better when she has a long time. She still feels fatigued in her muscles ache and I did go over in great detail with her and her without of the stone unloader how to do quadriceps strengthening exercises twice daily and I also recommended exercises to strengthen the intrinsic muscles of both hands by squeezing a soft rubber ball 3 times daily until exhaustion. She has no evidence of active nephritis or pleuropericarditis Reducing Her Prednisone from 5 Mg Daily to 2 Mg Twice Daily. She Will Remain on 500 Mg of CellCept Twice Daily As Well As 400 Mg of Hydroxychloroquine and Benlysta infusions monthly. Lab work will be done today. I will call her with these results. She was advised to start a walking program for 30 minutes 5 days a week. Alopecia 03/23/2017 Assessment & Plan (12/08/2020 3:22 PM EDT): I think this may either be an effect of lupus itself or more likely that from her medications most likely glucocorticoids but whenever we begin to taper her glucocorticoid she begins to have more photosensitive skin eruptions, pleurisy, low-grade fever and polyarthritis. For now we will try to reduce her prednisone to 5 mg daily and will get some help by consulting dermatology in [place] whom she has gone to before with good results. Other medications will remain unchanged. Assessment & Plan (05/03/2019 12:08 PM EST): Secondary to systemic lupus and long-term use of glucocorticoids but relatively stable at this time. Assessment & Plan (02/16/2018 3:46 PM EDT): This has been stable and nonprogressive with some mild hair regrowth since we have been treating her with Benlysta and Plaquenil. Assessment & Plan (03/23/2017 3:27 PM EST): Stable and no worse and no scarring and no evidence of discoid lupus. Fibromyalgia 03/23/2017 Assessment & Plan (12/08/2020 3:21 PM EDT): Stable tender areas and chronic fatigue suggest the overlay of fibromyalgia which is being partially but successfully treated with Lyrica, clonazepam, vitamin D, stretches, core strengthening and her attempts at low impact cardiovascular strengthening. Assessment & Plan (09/18/2020 12:43 PM EDT): Multiple tender points and fatigue overlay her systemic lupus and is best treated with a combination of Lyrica which she does well with as well as vitamin D and clonazepam. Good sleep hygiene and low inflammatory diet with caloric restriction were discussed as well. Hospital Outpatient Visit on 07/17/2020 Component Date Value Ref Range Status QUANTIFERON-TB GOLD 07/17/2020 Negative Negative Final Comment: [...] Diagnosis of Tuberculosis in Adults and Children [Lewinsohn DM et. al. Clin. Infect. Dis. 2017;64(2):111-115]. The reference range for the 'TB1 Ag minus Nil Result' and 'TB2 Ag minus Nil Result' is an Interferon-gamma level <0.35 IU/mL. TB1 AG MINUS NIL 07/17/2020 NEG 0.06 IU/mL Final TB2 AG MINUS NIL 07/17/2020 NEG 0.06 IU/mL Final MITOGEN MINUS NIL 07/17/2020 7.08 IU/mL Final NIL RESULT 07/17/2020 0.11 IU/mL Final ANGIOTENSIN CONV. ENZ 07/17/2020 39 16 - 85 U/L Final C4 07/17/2020 17 12 - 39 mg/dL Final C3 07/17/2020 101 81 - 157 mg/dl Final ANTI DSDNA ANTIBODY 07/17/2020 POSITIVE AT 1:320 Final Comment: Courtney Hill M.D., Director Clinical Immunology Laboratory [id number] Normal: Negative at 1:10 Anti-los coyotes DNA Antibodies detected on Crithidia Luciliae Substrate [...] other rheumatic diseases or in drug-induced SLE. Upxp-ghptnl-lugargbp DNA antibodies are usually detected in SLE patients with active disease, but not in those with spontaneous or induced remissions. Sequential testing of serum for the presence and titer of this antibody provides a cost-effective approach to following disease activity in many patients with SLE. C REACTIVE PROTEIN 07/17/2020 3.1 0.0 - 4.0 mg/L Final SODIUM 07/17/2020 139 133 - 146 mmol/L Final POTASSIUM 07/17/2020 4.2 3.3 - 5.1 mmol/L Final CHLORIDE 07/17/2020 105 96 - 108 mmol/L Final CO2 07/17/2020 26 21 - 35 mmol/L Final BUN 07/17/2020 10 6 - 19 mg/dL Final CREATININE 07/17/2020 0.80 0.5 - 1.5 mg/dL Final GLUCOSE 07/17/2020 103* 70 - 99 mg/dL Final ALBUMIN 07/17/2020 3.5* 3.9 - 4.8 g/dL Final TOTAL PROTEIN 07/17/2020 6.6 6.5 - 8.0 g/dL Final CALCIUM 07/17/2020 9.1 8.4 - 10.3 mg/dL Final ALKALINE PHOSPHATASE 07/17/2020 69 39 - 117 U/L Final TOTAL BILIRUBIN 07/17/2020 0.2 0.0 - 1.2 mg/dL Final AST 07/17/2020 18 0 - 37 U/L Final ALT 07/17/2020 15 0 - 40 U/L Final GLOBULIN 07/17/2020 3.1 1 - 4.8 g/dL Final EGFR 07/17/2020 96 >59 mL/min/1.73m2 Final Estimated glomerular filtration rate calculated using the CKD-EPI equation. ANION GAP 07/17/2020 12 10 - 20 mmol/L Final WBC 07/17/2020 7.14 4.00 - 11.00 K/uL Final RBC 07/17/2020 5.07 3.72 - 5.30 M/uL Final HGB 07/17/2020 13.9 10.6 - 15.5 g/dL Final HCT 07/17/2020 43.7 32.0 - 45.0 % Final PLT 07/17/2020 246 140 - 430 K/uL Final MCV 07/17/2020 86.2 78.0 - 97.0 fL Final MCH 07/17/2020 27.4 25.0 - 33.0 pg Final MCHC 07/17/2020 31.8* 32.0 - 36.0 g/dL Final RDW 07/17/2020 13.3 11.0 - 16.0 % Final MPV 07/17/2020 10.9 8.4 - 12.8 fl Final NRBC 07/17/2020 0.00 0 /100 WBCs Final ABSOLUTE NRBC 07/17/2020 0.00 0 K/uL Final DIFF METHOD 07/17/2020 Auto Final NEUTS 07/17/2020 45.2 43.0 - 75.0 % Final LYMPHS 07/17/2020 41.6 18.2 - 47.4 % Final MONOS 07/17/2020 10.5 4.00 - 11.00 % Final EOS 07/17/2020 1.8 0.0 - 8.0 % Final BASOS 07/17/2020 0.6 0.0 - 2.0 % Final Granulocytes, immature (%) 07/17/2020 0.3 0.0 - 0.9 % Final ABSOLUTE NEUTS 07/17/2020 3.23 1.80 - 7.70 K/uL Final ABSOLUTE LYMPHS 07/17/2020 2.97 1.00 - 3.10 K/uL Final ABSOLUTE MONOS 07/17/2020 0.75 0.20 - 0.80 K/uL Final ABSOLUTE EOS 07/17/2020 0.13 0.00 - 0.80 K/uL Final ABSOLUTE BASOS 07/17/2020 0.04 0.00 - 0.09 K/uL Final Granulocytes, immature 07/17/2020 0.02 0.00 - 0.05 K/uL Final Assessment & Plan (07/14/2020 11:25 AM EDT): Multiple tender points, fatigue, poor sleep, no inflammatory arthropathy all points of fibromyalgia as an overlay of her lupus. Continue Lyrica 150 mg twice daily. Continue clonazepam 1 mg twice daily as needed. Continue vitamin D supplementation, good sleep hygiene, gentle cardiovascular exercise and strategies towards weight reduction and low inflammatory diet. Assessment & Plan (05/12/2020 11:15 AM EST): Audible tender points and continued fatigue and arthralgias are suggestive but not diagnostic of active fibromyalgia but I believe she has this. There were no signs or symptoms of active inflammatory arthritis. I think compliance with vitamin D, good sleep habits, continuance of Lyrica and when needed clonazepam, continued use of Lexapro from mood stabilization and regular physical exercise with light cardiovascular. Assessment & Plan (03/05/2020 2:46 PM EST): Active but stable and quite painful. Continue hydrocodone 5 mg every 6 hours as needed for pain. Continue vitamin D3 supplementation 1000 units daily. Continue Lyrica at 150 mg twice daily. Assessment & Plan (05/03/2019 12:11 PM EST): Current acute painful syndrome over the scapulothoracic and paracervical region with multiple tender points over musculotendinous junctions are suggestive but not diagnostic of fibromyalgia flare regionally. This will be treated with local injection therapy today. Current medications will continue diclofenac gel as prescribed to be applied up to 4 times daily as needed this painful area as well as local heat and relative rest. No signs or symptoms of cervical radiculopathy. She is also to continue on Lyrica which has been helpful to control it her peripheral sensory neuropathy which may be secondary to her lupus or fibromyalgia. Assessment & Plan (08/28/2018 2:23 PM EDT): Multiple tender points, quite a bit of fatigue, morning stiffness all suggest active fibromyalgia. She will continue on Lexapro, vitamin D, stringent treatment of her lupus, low inflammatory diet, caloric restriction, stress management and regular walking program. Assessment & Plan (05/29/2018 1:30 PM EST): Patient's fibromyalgia influences her pain. She does have multiple tender points on exam. We did discuss how this can influence her generalized pain and the need for a low inflammatory Mediterranean style diet, general decrease in caloric consumption and stretching in a walking program. Assessment & Plan (02/16/2018 3:45 PM EDT): I refilled her Lyrica today. She will have lab work drawn today. Her fibromyalgia is active but stable. I recommended a flu vaccine but she refused. I will keep her on 150 mg of Lyrica at bedtime. She will stay on low-dose prednisone. Will stay on Benlysta and Plaquenil. I urged her to start a walking program for 45 minutes 5 days weekly and we talked about strategies for decreasing weight increasing her cardiovascular fitness including eating a diary of her eating habits drinking 4 8 ounce glasses of water a day and researching how to put into effect a Mediterranean low inflammatory diet. All of her questions were answered. To than 50% of this 28-minute visit was spent in [id number] conversation with the patient, her boyfriend, and voice writing reporter going over her back pain and had a treated along with warmth, contrast baths, and stretching and also a short course of Robaxin 750 mg 3 times daily as needed. Her other medications will be left unchanged. Continue on Benlysta, Plaquenil, and low-dose prednisone for her lupus. Assessment & Plan (12/15/2017 2:28 PM EDT): Patient has active and symptomatic fibromyalgia as evidenced by fatigue morning stiffness lack of synovitis and multiple tender points on exam. She is as good as she has been a long time. Medications will remain unchanged. I encouraged compliance with vitamin D3. Low-impact cardiovascular exercise on a low inflammatory Mediterranean-style diet was encouraged as well. Greater than 50% of this 29 minute visit was spent in [id number] conversation with the patient, her significant other and an intraoperative going over her history, discussion of risks and benefits of current medication, strongly recommended a flu vaccine when she returns on her next visit in 2 months, and updating her medications. All questions were answered. Assessment & Plan (03/23/2017 3:28 PM EST): Synovitis and tender points and physical exam but this is much better too and I believe that the cardiovascular program will help her as well. We also spoke about the natural history Mediterranean low inflammatory diet. Reactive depression 03/23/2017 Assessment & Plan (05/03/2019 12:11 PM EST): Stable without dark depressive thoughts or suicidal ideation on 150 g of trazodone at bedtime and 10 g of citalopram in the morning. Encouraged to contact her provider to go over her psychiatric medications. Assessment & Plan (08/28/2018 2:23 PM EDT): Stable on current medicines. Not progressive and no scarring. No change in medications. Assessment & Plan (12/15/2017 2:28 PM EDT): Stable without suicidal ideation. Continue on current medications. No change in antidepressants. 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 which is being evaluated again by the cleat feeder and both he and I have requested [...] 05/29/2018 Component Date Value Ref Range Status SODIUM 05/29/2018 141 133 - 146 mmol/L Final POTASSIUM 05/29/2018 4.0 3.3 - 5.1 mmol/L Final CHLORIDE 05/29/2018 103 96 - 108 mmol/L Final CO2 05/29/2018 25 21 - 35 mmol/L Final BUN 05/29/2018 8 6 - 19 mg/dL Final CREATININE 05/29/2018 0.80 0.5 - 1.5 mg/dL Final GLUCOSE 05/29/2018 76 70 - 99 mg/dL Final ALBUMIN 05/29/2018 3.9 3.9 - 4.8 g/dL Final TOTAL PROTEIN 05/29/2018 6.9 6.5 - 8.0 g/dL Final CALCIUM 05/29/2018 8.9 8.4 - 10.3 mg/dL Final ALKALINE PHOSPHATASE 05/29/2018 62 39 - 117 U/L Final TOTAL BILIRUBIN 05/29/2018 0.2 0.0 - 1.2 mg/dL Final AST 05/29/2018 15 0 - 37 U/L Final ALT 05/29/2018 14 0 - 40 U/L Final GLOBULIN 05/29/2018 3.0 1 - 4.8 g/dL Final EGFR 05/29/2018 97 >59 mL/min/1.73m2 Final If patient is black, multiply result by 1.159. Estimated glomerular filtration rate calculated using the CKD-EPI equation. ANION GAP 05/29/2018 17 10 - 20 mmol/L Final C REACTIVE PROTEIN 05/29/2018 4.3* 0.0 - 4.0 mg/L Final WBC 05/29/2018 7.90 3.40 - 11.20 K/uL Final RBC 05/29/2018 4.89* 3.80 - 4.80 M/uL Final HGB 05/29/2018 13.4 12.0 - 15.0 g/dL Final HCT 05/29/2018 41.7 36.0 - 46.0 % Final PLT 05/29/2018 230 130 - 400 K/uL Final MCV 05/29/2018 85.3 79.0 - 98.0 fL Final MCH 05/29/2018 27.4 27.0 - 34.8 pg Final MCHC 05/29/2018 32.1 31.5 - 36.0 g/dL Final RDW 05/29/2018 13.2 10.8 - 14.6 % Final MPV 05/29/2018 11.8 9.4 - 12.4 fl Final NRBC 05/29/2018 0.00 0.00 /100 WBCs Final ABSOLUTE NRBC 05/29/2018 0.00 0.00 K/uL Final DIFF METHOD 05/29/2018 Auto Final NEUTS 05/29/2018 50.4 45.30 - 77.70 % Final LYMPHS 05/29/2018 39.4 12.30 - 39.70 % Final MONOS 05/29/2018 8.6 4.10 - 12.80 % Final EOS 05/29/2018 0.8 0 - 7.2 % Final BASOS 05/29/2018 0.4 0 - 2.80 % Final Granulocytes, immature (%) 05/29/2018 0.4 0.0 - 0.9 % Final ABSOLUTE NEUTS 05/29/2018 3.99 1.40 - 7.70 K/uL Final ABSOLUTE LYMPHS 05/29/2018 3.11 0.60 - 3.20 K/uL Final ABSOLUTE MONOS 05/29/2018 0.68* 0.11 - 0.59 K/uL Final ABSOLUTE EOS 05/29/2018 0.06 0.01 - 0.50 K/uL Final ABSOLUTE BASOS 05/29/2018 0.03 0.00 - 0.08 K/uL Final Granulocytes, immature 05/29/2018 0.03 0.00 - 0.05 K/uL Final Immunizations Immunization Administration Dates Next Due COVID-19 (Pre-02/14) Pfizer Vaccine, mRNA, PF ,07/26/2020 Influenza Quadrivalent Preservative Free IM 01/24 Social History Tobacco Use Types Packs/Day Years Used Date Smoking Tobacco: Every Day Cigarettes 0.3 8 Started: 2007; Last attempted to quit: 2015 Smokeless Tobacco: Never Alcohol Use Standard Drinks/Week Comments No 0 (1 standard drink = 0.6 oz pur e alcohol) Education Answer Date Recorded Are you interested in more education? Not on deann e 08/20/2022 Are you concerned about learning? Not on file 08/20/2022 No 08/20/2022 No 08/20/2022 Digital Access Answer Date Recorded No 09/20/2022 No 09/20/2022 Reliable internet access at home? Not on file 09/20/2022 Device with a working camera? Not on file Comments Unknown Sex and Gender Information Value Date Recorded Sex Assigned at Not on file Legal Sex Female 1:50 PM EST Gender Identity Not on file Sexual Orientation Not on file Last Filed Vital Signs Vital Sign Reading Time Taken Comments Blood Pressure 105/68 12/08/2020 2:44 PM EDT Pulse 68 12/08/2020 2:44 PM EDT Temperature 36.5 C (97.7 F) 12/08/2020 2:44 PM EDT Respiratory Rate 16 12/08/2020 2:44 PM EDT Oxygen Saturation 96% 05/21/2019 1:06 PM EST Inhaled Oxygen Concentration - - Weight 85.5 kg (188 lb 9.6 oz) 12/08/2020 2:44 P M EDT Height 165.1 cm (5' 5 ) 12/08/2020 2:44 PM EDT Body Mass Index 31.38 12/08/2020 2:44 PM EDT Plan of Treatment Health Maintenance Due Date Last Done Comments DEPRESSION SCREENING 1997 SMOKING Hx and SMOKELESS TOBACCO SCREENING 1998 HEPATITIS C SCREENING 2003 HIV ONE-TIME SCREENING (18-6 5 YEARS) 2003 PNEUMOCOCCAL VACCINES (0-49 years) (1 of 2 - PCV) 02/14/2004 PAP SMEAR 2006 COVID-19 VACCINE (2023-2 5 season) 2023 03/21/2021, 08/16/2020, 07/26/2020 Adult Td,Tdap Booster 05/11/2033 05/11/2023 HEPATITIS A VACCINES Aged Out No long er eligible based on patient's age to complete this topic HIB VACCINES Aged Out No longer eligi ble based on patient's age to complete this topic MENINGOCOCCAL VACCINES (ACWY) Aged Out No longer eligible based on patient's age to complete this topic MENINGOCOCCAL VACCINES (B) Aged Out N o longer eligible based on patient's age to complete this topic Medical Devices Not on file Insurance CARE MEDICARE REPLACEMENT [facility] [place] [address] MEDICARE REPLACEMENT CARE MEDICARE REPLACEMENT CARE MEDICARE REPLACEMENT [facility] CARE MEDICARE REPLACEMENT MEDICARE REPLACEMENT MEDICARE REPLACEMENT MEDICARE REPLACEMENT [facility] ONE CARE MEDICARE REPLACEMENT Care Teams Dyer Assistant Relationship Specialty Start Date End Date Nicole Biswas NP [address] [place] [address] [address] [place] [address] PCP - General Family Medicine 01/12/19 Marilin Wong FNP [address] [place] [id number] Family Medicine 03/22/18 Additional Source Comments The information contained in this document represents components of the legal health record. It is not the complete legal health record.[facility]
--- OUTSIDE RECORDS SUMMARY | 2024-11-20 09:05 | XMS_ITS | Encounter Summary ---
Author Organization [facility] Address [address] [place] [address] Phone Care Team Providers Care Radiotelegraphist Name Role Phone Deena Sam MD Primary Care Provider Reason for Visit * Reason Comments Med Refill Encounter Details Date Type Department Care Team (Late st Contact Info) Description 12/10/2022 Refill [facility] [address] [place] [phone] Merrick Meza MD Social History Tobacco Use [...] on filedocumented in this encounter Care Teams Radiotelegraphist Relationship Specialty Start Date End Date Deena Sam MD [address] [place] [address] [address] [place] [address] PCP - General Internal Medicine 02/16/21 documented as of this encounter
== END 2024-11-20 09:41 | disposition home or self-care (01) ==
LOC: HO.RHES 08:49
PROVIDERS: PCP Student in an Organized Health Care Education/Training Program; Visit Provider Internal Medicine Rheumatology
DX: M32.19 Other organ or system involvement in systemic lupus erythematosus (principal); M25.561 Pain in right knee; M25.562 Pain in left knee; G89.29 Other chronic pain; M67.88 Other specified disorders of synovium and tendon, other site
CPT/HCPCS: 99214; G2211

== ENCOUNTER 2024-12-20 12:07 | Outpatient (AMB) | payer OTHER, SELFPAY ==
--- OUTSIDE RECORDS SUMMARY | 2024-09-06 07:00 | XMS_ITS ---
Author Organization [facility] Address [address] [place] [address] [address] [place] [address] Care Team Providers Care Public Health Program Manager Name Role Phone MORALES LA, CORBIN Primary Care Provider Unavailab Jania Pennington Unavailable [phone] REASON FOR VISIT Annual PRORATE CLERK Physical Encounters Encounter Location Date Provider Diagnosis [facility] [address] [place] [address] 09/06/2024 Jania Sepulveda Plan Of Treatment Next Appt Details Provider Name:Jania albarran, 09/30/2025 10:00:00 AM, [address] [place] [address], [address], [place], [address], Progress Notes * MELODY RETANAB: 5 (39 yo F)Acc No.[id number]:09/06/2024 PROGRESS NOTES Patient: BRETT RENTERIA Appointment Provider: Rosy Sepulveda M.D. :1985 A ge:39 Y S ex:Female Date:09/06/2024 Address:[address] [place], [place] [id number] Pcp:CORBIN NIELSEN MD Subjective: * Chief Complaints: * 1 . Annual PRORATE CLERK Physical. * Medical History: Objective: * Vitals: Assessment: Plan: * Treatment: * Images: Billing Information: * Visit Code: * Procedure Codes: * Electronic signature of Romario Sepulveda MD on 12/20/2024 at 01:08 PM EDT Sign off status: Pending * Appointment Provider: Rosy Sepulveda M.D. Date: 0 09/06/2024 Generated for Thierno muller/Lindy/Natalie on: 0 12/20/2024 01:08 PM EDT
--- NOTE | 2024-12-20 12:10 | HO.NEPHOV_ITS ---
Vital Signs 12/20/24 12:12 Height 5 ft 5 in Weight 195 lb BMI 32.4 BP 102/70 Blood Pressure Location Lt brachial Position Sitting Intake Visit Reasons: 6mon follow-up w/labs-Conf Ed Physicians Required: Yes Ed Physicians Language: Insurance Job Titles Services: Ed Physicians Offered & Declined ([facility] Ed Physicians services refused ) Accompanied by: Self / Same As Patient Allergies No Known Allergies Allergy (Verified 12/20/24 12:11) HPI Comments Details: Stephanie was seen in follow-up of history proteinuria on a backdrop of lupus erythematosus. She is on mycophenolate. She has not been getting any cutaneous lesions now. She denies any urinary infections, fever, frothy urine, hematuria. She is not taking any excessive nonsteroidal inflammatories. She tries to maintain good hydration. She has no pedal edema. Her blood pressure has been at goal. [facility] Medical History Long-term use of immunosuppressant medication Fibromyalgia Lupus (systemic lupus erythematosus) Surgical History History of tubal ligation History of surgery on lower extremity History of thyroid surgery Family History Mother Diabetes Lupus Brother Diabetes Social History Household Members: Significant Other and Children Alcohol intake: never Patient Tobacco Use Status: Former Tobacco user Current occupational status: disabled Review of Systems Const All systems reviewed & are unremarkable except as noted in HPI and below Physical Exam Vital Signs: Last Vital Signs BP 102/70 12/20/24 12:12 BMI result Body Mass Index 32.4 Const General: comfortable and no acute distress Orientation/consciousness: patient oriented x3 HEENT Head: Yes normocephalic Mouth: Normal oral and palatal mucosa present Eyes EOM: EOMs intact bilaterally Neck Neck: Yes supple Resp Auscultation: clear to auscultation bilaterally Cardio Jugular venous distension: no JVD Rate: regular rate GI Palpation (GI): Soft to palpation Auscultation: normal bowel sounds General: Yes no CVA tenderness Back/Spine/Pelvis Back: no CVA tenderness Skin General skin exam: no rashes or lesions noted Neuro General: patient oriented x3 and moves all extremities Extrem General: Yes no pedal edema Results Reviewed Nephrology Results: Hgb, (12.0-16.0) 12.4 g/dl 11/20/24 WBC, (4.8-10.8) 5.0 X10*3/uL 11/20/24 Plt Count, (160-400) 244 X10*3/uL 11/20/24 Sodium, (135-145) 141 mmol/L 11/20/24 Potassium, (3.3-5.1) 3.8 mmol/L 11/20/24 Chloride, (96-108) 108 mmol/L 11/20/24 Carbon Dioxide, (22-29) 27 mmol/L 11/20/24 BUN, (9-16) 13 mg/dL 11/20/24 Creatinine, (0.5-1.4) 0.81 mg/dL 11/20/24 Calcium, (8.4-10.2) 8.8 mg/dL 05/23/24 Urine Protein, (Neg-Trace) Negative mg/dL 11/20/24 Urine Creatinine 172.58 mg/dL 11/20/24 Protein/Creatinin Ratio TNP 11/20/24 Assessment & Plan Assessment & Plan (1) Long-term use of immunosuppressant medication: Code(s): 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 Dx 2006 (skin biopsy-proven, arthralgias, rashes, scarring alopecia, proteinuria, pericarditis) Code(s): M32.9 - Systemic lupus erythematosus, unspecified Category: Medical Qualifiers: Systemic lupus erythematosus type: other Systemic lupus erythematosus organ involvement: other Qualified Code(s): M32.19 - Other organ or system involvement in systemic lupus erythematosus Zuleyka Brown has lupus and has been on CellCept. Her cutaneous lesions are gone now. She does not have any edema or frothy urine. Her blood pressure is at goal. Her renal functions are stable. Her urine protein, complement level were normal. Her anti DNA antibody was high. If she develop proteinuria, I will consider doing a renal biopsy and initiate her on SHAYAN-inhibitor. She has family history of lupus ( Mom had lupus-) . I did not make any medication changes today. All questions were answered. 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 and immunosuppressants Protein Creatinine Ratio, Ur 6 Months M32.19 - Other organ or system involvement in systemic lupus erythematosus, Z79.60 - USP (current) use of unspecified immunomodulators and immunosuppressants Creatinine 6 Months M32.19 - Other organ or system involvement in systemic lupus erythematosus, Z79.60 - USP (current) use of unspecified immunomodulators and immunosuppressants Complement C3 6 Months M32.19 - Other organ or system involvement in systemic lupus erythematosus, 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 and immunosuppressants Complement C4 6 Months M32.19 - Other organ or system involvement in systemic lupus erythematosus, 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 and immunosuppressants Blood Urea Nitrogen 6 Months M32.19 - Other organ or system involvement in systemic lupus erythematosus, Z79.60 - USP (current) use of unspecified immunomodulators and immunosuppressants Electrolytes 6 Months M32.19 - Other organ or system involvement in systemic lupus erythematosus, 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
[2024-12-20 12:12] VITALS: BP 102/70; BMI 32.4
--- OUTSIDE RECORDS SUMMARY | 2024-12-20 13:08 | XMS_ITS | Encounter Summary ---
Author Organization [facility] Address [address] [place] [address] Phone Care Team Providers Care Consumer Education Specialist Name Role Phone Deena Sam MD Primary Care Provider Reason for Visit * Reason Comments Med Refill Encounter Details Date Type Department Care Team (Late st Contact Info) Description 12/10/2022 Refill [facility] [address] [place] [phone] Merrick Meza MD Social History Tobacco Use [...] on filedocumented in this encounter Care Teams Consumer Education Specialist Relationship Specialty Start Date End Date Deena Sam MD [address] [place] [address] [address] [place] [address] PCP - General Internal Medicine 02/16/21 documented as of this encounter
--- OUTSIDE RECORDS SUMMARY | 2024-12-20 13:08 | XMS_ITS | Clinical Summary ---
Author Organization [address] [place] [address] Address [address] [place] [address] Phone Care Team Providers Care Cabinet Builder Name Role Phone Jose Azevedo MD Primary Care Provider [phone] Allergies No known active allergies Medications albuterol [...] by mouth 2 times daily. 4 Active folic acid (FOLVITE) 1 mg tablet Take 1 tablet (1 mg total) by mouth 1 (one) time each day. 90 tablet 1 5 Active diclofenac (VOLTAREN) 1 % topical gel Apply 2 g topically 4 (four) times a day if needed (pain). 1 each 3 5 Active pregabalin (LYRICA) 150 mg capsuleIndicati ons:Fibromyalgi a Take 1 capsule (150 mg total) by mouth 2 (two) times a day. Max Daily Amount: 300 mg 180 each 1 5 04/15/20 25 Active escitalopram (LEXAPRO) 5 mg tablet 5 Active meloxicam (MOBIC) 15 mg tablet TOME MUSA TABLETA POR V A ORAL TODOS LOS D CON ALIMENTO Active Active Problems Problem Noted Date Diagnosed Date Anxiety and depression 08/02/2024 Mild intermittent asthma without complication Obesity (BMI 30-39.9) 06/21/2023 Lupus (systemic lupus erythe matosus) ([facility] V24, [facility] V28) 01/04/2023 Fibromyalgia 01/04/2023 Encounters Date Type Department Care Team Description 11/28/2024 3:25 PM EDT - 11/28/2024 11:59 PM EDT Hospital Encounter [facility] CT Scan [address] [place] [phone] Lump in neck Discharge Disposition: Home or Self Care 11/15/2024 11:00 AM EDT Office Visit [facility] Hematology Oncology [address] [place] [address] Arlene Cantu, Easy bruisability (Primary Dx) 10/31/2024 12:00 PM EDT Office Visit Internal Medicine [facility] [address] [phone] Latoya Herrera MD Lump in neck (Primary Dx) 10/30/[address] [facility] [address] [phone] Humberto Dorman [place] 10/30/[address] [facility] [address] [phone] Humberto Dorman [place] 10/17/[address] [facility] [address] [phone] Yisel Taylor [place] 09/25/[address] [facility] [address] [phone] Jose Azevedo MD 09/21/[address] [facility] [address] [phone] Jose Azevedo MD from Last 3 Months [...] PROCEDURE: HISTORICAL KNEE SURGERY; COMMENT: done at [facility] TUBAL LIGATION 2003 Bilateral PROCEDURE: HISTORICAL TUBAL LIGATION; COMMENT: done in [facility] Medical History Medical History Date Comments Lupus [...] Record ed Within the last 3 months, albina reveles many times did you visit the emergency [...] Care Team (Late st Contact Info) Description 12/28/2024 11:30 AM EDT Office Visit [facility] Hematology Oncology [address] [place] [phone] Arlene Cantu DO [address] [place] [address] 08/07/2025 1:00 PM EDT Office Visit Internal Medicine - [place] 175 [facility] [address] [place] [phone] Jose Azevedo MD [address] [place] [address] Health Maintenance Due Date Last Done Comments [...] Procedure Name Priority Date/Time Associated Diagnosis Comments CT NECK SOFT TISSUE W CONTRAST Routine 11/28/2024 3:38 PM EDT Lump in neck FOLATE Routine 11/15/2024 11:40 AM EDT Easy bruisability IRON AND TIBC Routine 11/15/2024 11:40 AM EDT Easy bruisability FACTOR 8 ACTIVITY Routine 11/15/2024 11: 40 AM EDT Easy bruisability VON WILLEBRAND MULTIMERIC Routine 11/15/2024 11:40 AM EDT Easy bruisability VON WILLEBRAND FACTOR ANTIGEN Routine 11/15/2024 11:40 AM EDT Easy bruisability VON WILLEBRAND FACTOR ACTIVITY Routine 11/15/2024 11:40 AM EDT Easy bruisability [...] fatigue from Last 3 Months Results * CT Neck Soft Tissue w Contrast (11/28/2024 3:38 PM EDT) Anatomical Region Laterality Modality Head and Neck Computed Tomogra phy 12/04/2024 11:4 8 AM EDT Impressions 12/04/2024 11:54 AM EDT Impression: 1. Nonspecific subcutaneous soft tissue swelling/nodule posterior to the left ear, measuring 13 x 7 x 18 mm. 2. [place] ([id number]) -------- FINAL REPORT -------- Dictated By: Lizette Mccabe Dictated Date: 12/04/2024 11:48 ET Assigned Physician: Lizette Mccabe Reviewed and Electronically Signed By: Lizette Mccabe Signed Date: 12/04/2024 11:54 ET Workstation ID: [id number] Transcribed By: Self Edit Transcribed Date: 12/04/2024 11:48 ET Narrative 12/04/2024 11:54 AM EDT History: 39-year-old woman with left-sided neck pain and lump behind left ear. Technique: Helical volumetric imaging of the neck was performed during the uneventful intravenous administration of 90 cc Isovue-370. DLP: 293.59 mGy/cm [place] VCT Iterative reconstruction technique Findings: There is focal soft tissue swelling versus mass just posterior to the left outer ear, measuring 13 x 7 x 18 mm, associated with an outward convex bulge in the skin line. The appearance is nonspecific. No cervical lymphadenopathy is seen. The bilateral carotid arteries and internal jugular veins are patent. The parotid and submandibular glands are symmetric and normal in appearance. The nasopharyngeal mucosal landmarks are intact. The palatine tonsils are symmetric and unremarkable for age. The parapharyngeal fat is intact. The epiglottis is normal in thickness. The aryepiglottic folds are normal. The vocal cords are symmetric and normal in appearance. The left thyroid lobe is diminutive to absent. The right thyroid lobe and isthmus are normal. No focal nodule is seen. The orbital and included intracranial contents appear normal. The paranasal sinuses and mastoid air cells are clear. The cervical spine demonstrates normal alignment. Disc degenerative changes are noted. Procedure Note Lizette Mccabe MD - 12/04/2024 History: 39-year-old woman with left-sided neck pain and lump behind leftear. Technique: Helical volumetric imaging of the neck was performed during theuneventful intravenous administration of 90 cc Isovue-370. DLP: 293.59 mGy/cm [place] VCT Iterative reconstruction technique Findings: There is focal soft tissue swelling versus mass just posterior to the leftouter ear, measuring 13 x 7 x 18 mm, associated with an outward convexbulge in the skin line. The appearance is nonspecific. No cervical lymphadenopathy is seen. The bilateral carotid arteries andinternal jugular veins are patent. The parotid and submandibular glandsare symmetric and normal in appearance. The nasopharyngeal mucosal landmarks are intact. The palatine tonsils aresymmetric and unremarkable for age. The parapharyngeal fat is intact. Theepiglottis is normal in thickness. The aryepiglottic folds are normal. Thevocal cords are symmetric and normal in appearance. The left thyroid lobe is diminutive to absent. The right thyroid lobe andisthmus are normal. No focal nodule is seen. The orbital and included intracranial contents appear normal. Theparanasal sinuses and mastoid air cells are clear. The cervical spinedemonstrates normal alignment. Disc degenerative changes are noted. IMPRESSION: Impression: 1. Nonspecific subcutaneous soft tissue swelling/nodule posterior to theleft ear, measuring 13 x 7 x 18 mm. 2. No [place] ([id number]) -------- FINAL REPORT -------- Dictated By: Lizette Mccabe Dictated Date: 12/04/2024 11:48 ET Assigned Physician: Lizette Mccabe Reviewed and Electronically Signed By: Lizette Mccabe Signed Date: 12/04/2024 11:54 ET Workstation ID: [id number] Transcribed By: Self Edit Transcribed Date: 12/04/2024 11:48 ET Latoya Herrera MD IMG CT PROCEDURES Final Result * Iron and TIBC (11/15/2024 11:40 AM EDT) Iron 102 40 - 150 mcg/dL LAB CHEMISTRY METHOD 11/15/2024 2:03 PM EDT [facility] TIBC 426 250 - 450 mcg/dL LAB CHEMISTRY METHOD 11/15/2024 2:03 PM EDT [facility] Iron Saturation 24 15 - 50 % LAB CHEMISTRY METHOD 11/15/2024 2:03 PM EDT [facility] Blood Venous blood specimen / Unknown Venipuncture / Unknown 11/15/2024 11:40 AM EDT 11/15/2024 1:26 PM EDT us Arlene Cantu DO LAB BLOOD ORDERABLES Final Result [facility] [address] [place] [address], * Von Willebrand multimeric (11/15/2024 11:40 AM EDT) Von Willebrand Factor Multimer See Note 11/22/2024 7:31 PM EDT [facility] Comment: von Willebrand factor multimeric analysis shows a normal multimeric distribution. Multimeric analysis is a qualitative test that cannot be used alone for the diagnosis or subtyping of von Willebrand disease. This result should be correlated with quantitative results from vWF antigen, vWF activity, factor VIII activity testing, and clinical information to exclude subtypes of von Willebrand disease with a normal multimeric distribution. Additional information regarding diagnosis and subtyping of von Willebrand disease is available at [email or web address]. INTERPRETIVE INFORMATION: von Willebrand Factor Multimers This test was developed and its performance characteristics determined by [facility]. It has not been cleared or approved by the [place] Food and Drug Administration. This test was performed in a CLIA certified laboratory and is intended for clinical purposes. Performed By: [facility] [address] [place] [address] Certified Prosthetist: Jakub Sanabria MD, PhD CLIA Number: [id number] Blood Venous blood specimen / Unknown Venipuncture / Unknown 11/15/2024 11:40 AM EDT 11/15/2024 1:27 PM EDT Arlene Amara Cantu DO LAB BLOOD ORDERABLES Final Result [facility] [address] [place] [address] * Von Willebrand factor activity (11/15/2024 11:40 AM EDT) von Willebrand Factor Activity Percent 68 51 - 215 % 11/22/2024 5:38 PM EDT [facility] Comment: REFERENCE INTERVAL: von Willebrand Factor, Activity (RCF) Access complete set of age- and/or gender-specific reference intervals for this test in the [facility] Test Directory ([facility]). Performed By: [facility] [address] [place] [address] Certified Prosthetist: Jakub Sanabria MD, PhD CLIA Number: [id number] Blood Venous blood specimen / Unknown Venipuncture / Unknown 11/15/2024 11:40 AM EDT 11/15/2024 1:26 PM EDT us Arlenedimas Cantu DO LAB BLOOD ORDERABLES Final Result [facility] [address] [place] [address] * Activated partial thromboplastin time (11/15/2024 11:40 AM EDT) aPTT 35.7 24.1 - 39.3 sec LAB COAGULATION METHOD 11/15/2024 1:43 PM EDT [facility] Blood Venous blood specimen / Unknown Venipuncture / Unknown 11/15/2024 11:40 AM EDT 11/15/2024 1:27 PM EDT Arlene Lemonsulialexandra PARIS LAB BLOOD ORDERABLES Final Result Performing Organization Address [facility]/ZIP Co de Phone Number [facility] [address] [place] [address], [place] [phone] * Prothrombin time with INR (11/15/2024 11:40 AM EDT) Pathologist [facility] Protime 12.3 10.6 - 13.9 sec LAB COAGULATION METHOD 11/15/2024 1:43 PM EDT [facility] INR 1.0 LAB COAGULATION METHOD 11/15/2024 1:43 PM EDT [facility] Blood Venous blood specimen / Unknown Venipuncture / Unknown 11/15/2024 11:40 AM EDT 11/15/2024 1:27 PM EDT Arlene Lemonsuliffe LAB BLOOD ORDERABLES Final Result Performing Organization Address [facility] Co de Phone Number [facility] [address] [place] [address], [place] [phone] * Von Willebrand factor antigen (11/15/2024 11:40 AM EDT) [facility] Von Willebrand Factor Antigen 91 52 - 214 % 11/22/2024 5:38 PM EDT [facility] Comment: REFERENCE INTERVAL: von Willebrand Factor, Antigen Access complete set of age- and/or gender-specific reference intervals for this test in the [facility] Test Directory ([facility]). Performed By: [facility] [address] [place] [address] Certified Prosthetist: Jakub Sanabria MD, PhD CLIA Number: [id number] Blood Venous blood specimen / Unknown Venipuncture / Unknown 11/15/2024 11:40 AM EDT 11/15/2024 1:27 PM EDT us Arlene Prakashbettina Cantu DO LAB BLOOD ORDERABLES Final Result [facility] [address] [place] [address] * Factor VIII activity (11/15/2024 11:40 AM EDT) Pathologist [facility] Factor VIII Activity 59 56 - 191 % 11/22/2024 5:38 PM EDT [facility] Comment: REFERENCE INTERVAL: Factor VIII, Activity Access complete set of age- and/or gender-specific reference intervals for this test in the [facility] Test Directory ([facility]). Performed By: [facility] [address] [place] [address] Certified Prosthetist: Jakub Sanabria MD, PhD CLIA Number: [id number] Blood Venous blood specimen / Unknown Venipuncture / Unknown 11/15/2024 11:40 AM EDT 11/15/2024 1:27 PM EDT us Arlene Cantu DO LAB BLOOD ORDERABLES Final Result Performing Organization Address [facility]/ZIP Co de Phone Number [facility] [address] [place] [address] * (ABNORMAL) Folate (11/15/2024 11:40 AM EDT) [facility] Folate >20.0(H) 2.8 - 17.0 ng/ml LAB CHEMISTRY METHOD 11/15/2024 2:03 PM EDT [facility] Blood Venous blood specimen / Unknown Venipuncture / Unknown 11/15/2024 11:40 AM EDT 11/15/2024 1:26 PM EDT us Arlenedimas Cantu DO LAB BLOOD ORDERABLES Final Result [facility] [address] [place] [address], [place] [phone] * (ABNORMAL) Thyroid stimulating hormone with reflex to free t4 and free t3 (10/31/2024 12:27 PM EDT) TSH 5.34(H) 0.40 - 4.00 mcIU/mL LAB CHEMISTRY METHOD 10/31/2024 4:43 PM EDT [facility] Blood Venous blood specimen / Unknown Venipuncture / Unknown 10/31/2024 12:27 PM EDT 10/31/2024 12:27 PM EDT Jose Azevedo MD LAB BLOOD ORDERABLES Final Resul t Performing Organization Address [facility]/ZIP Co de Phone Number [facility] [address] [place] [address], * Free thyroxine with reflex to free triiodothyronine (10/31/2024 12:27 PM EDT) Pathologist [facility] Free T4 1.15 0.70 - 1.80 ng/dL LAB CHEMISTRY METHOD 10/31/2024 7:27 PM EDT [facility] Blood Venous blood specimen / Unknown Venipuncture / Unknown 10/31/2024 12:27 PM EDT 10/31/2024 12:27 PM EDT Jose Azevedo MD LAB BLOOD ORDERABLES Final Resul t [facility] [address] [place] [address], [place] [phone] * Lipid panel with reflex to direct LDL (10/31/2024 12:27 PM EDT) Pathologist [facility] Cholesterol 151 0 - 200 mg/dL LAB CHEMISTRY METHOD 10/31/2024 2:52 PM EDT [facility] Triglycerides 86 0 - 150 mg/dL LAB CHEMISTRY METHOD 10/31/2024 2:52 PM EDT [facility] HDL 61 >=40 mg/dL LAB CHEMISTRY METHOD 10/31/2024 2:52 PM EDT [facility] LDL Calculated 73 0 - 100 mg/dL LAB CHEMISTRY METHOD 10/31/2024 2:52 PM EDT [facility] VLDL Cholesterol Jamari 17.2 mg/dL LAB CHEMISTRY METHOD 10/31/2024 2:52 PM EDT [facility] Non HDL Chol. (LDL+VLDL) 90 <145 mg/dL LAB CHEMISTRY METHOD 10/31/2024 2:52 PM EDT [facility] Chol/HDL Ratio 2.5 0.0 - 4.4 LAB CHEMISTRY METHOD 10/31/2024 2:52 PM EDT [facility] Blood Venous blood specimen / Unknown Venipuncture / Unknown 10/31/2024 12:27 PM EDT 10/31/2024 12:27 PM EDT us Jose Azevedo MD LAB BLOOD ORDERABLES Final Resul t [facility] [address] [place] [address], * (ABNORMAL) CBC auto differential (10/31/2024 12:27 PM EDT) WBC 6.8 4.8 - 10.8 K/mcL LAB HEMETOLOGY METHOD 10/31/2024 2:30 PM EDT [facility] RBC 4.90(H) 3.80 - 4.80 M/mcL LAB HEMETOLOGY METHOD 10/31/2024 2:30 PM EDT [facility] Hemoglobin 12.8 11.5 - 16.0 g/dL LAB HEMETOLOGY METHOD 10/31/2024 2:30 PM EDT [facility] Hematocrit 41.5 35.0 - 47.0 % LAB HEMETOLOGY METHOD 10/31/2024 2:30 PM EDT [facility] MCV 85.6 79.0 - 98.0 FL LAB HEMETOLOGY METHOD 10/31/2024 2:30 PM EDT [facility] MCH 26.4(L) 27.0 - 32.0 pcg LAB HEMETOLOGY METHOD 10/31/2024 2:30 PM EDT [facility] MCHC 30.8(L) 32.0 - 37.0 g/dL LAB HEMETOLOGY METHOD 10/31/2024 2:30 PM EDT [facility] RDW 13.2 11.0 - 15.0 % LAB HEMETOLOGY METHOD 10/31/2024 2:30 PM EDT [facility] Platelets 266 130 - 400 K/mcL LAB HEMETOLOGY METHOD 10/31/2024 2:30 PM EDT [facility] MPV 10.9 7.0 - 11.0 FL LAB HEMETOLOGY METHOD 10/31/2024 2:30 PM EDT [facility] NRBC 0.0 <1.0 % LAB HEMETOLOGY METHOD 10/31/2024 2:30 PM EDT [facility] NRBC Absolute 0.00 <0.10 K/mcL LAB HEMETOLOGY METHOD 10/31/2024 2:30 PM EDT [facility] Neutrophils Relative 48.6 % LAB HEMETOLOGY METHOD 10/31/2024 2:30 PM EDT [facility] Lymphocytes Relative 39.5 % LAB HEMETOLOGY METHOD 10/31/2024 2:30 PM EDT [facility] Monocytes Relative 9.7 % LAB HEMETOLOGY METHOD 10/31/2024 2:30 PM EDT [facility] Eosinophils Relative 1.2 % LAB HEMETOLOGY METHOD 10/31/2024 2:30 PM EDT [facility] Basophils Relative 0.7 % LAB HEMETOLOGY METHOD 10/31/2024 2:30 PM EDT [facility] Immature Granulocytes Relative 0.3 % LAB HEMETOLOGY METHOD 10/31/2024 2:30 PM EDT [facility] Neutrophils Absolute 3.31 1.50 - 7.00 K/mcL LAB HEMETOLOGY METHOD 10/31/2024 2:30 PM EDT [facility] Lymphocytes Absolute 2.69 1.00 - 5.00 K/mcL LAB HEMETOLOGY METHOD 10/31/2024 2:30 PM EDT [facility] Monocytes Absolute 0.66 0.20 - 1.00 K/mcL LAB HEMETOLOGY METHOD 10/31/2024 2:30 PM EDT [facility] Eosinophils Absolute 0.08 0.00 - 0.50 K/mcL LAB HEMETOLOGY METHOD 10/31/2024 2:30 PM EDT [facility] Basophils Absolute 0.05 0.00 - 0.20 K/mcL LAB HEMETOLOGY METHOD 10/31/2024 2:30 PM EDT [facility] Immature Granulocytes Absolute 0.02 0.00 - 0.03 K/mcL LAB HEMETOLOGY METHOD 10/31/2024 2:30 PM EDT [facility] Blood Venous blood specimen / Unknown Venipuncture / Unknown 10/31/2024 12:27 PM EDT 10/31/2024 12:27 PM EDT us Jose Azevedo MD LAB BLOOD ORDERABLES Final Resul t [facility] [address] [place] [address], * (ABNORMAL) Vitamin D 25 hydroxy (10/31/2024 12:27 PM EDT) Vit D, 25-Hydroxy 28.0(L) 30.0 - 80.0 ng/mL LAB CHEMISTRY METHOD 10/31/2024 4:42 PM EDT [facility] Blood Venous blood specimen / Unknown Venipuncture / Unknown 10/31/2024 12:27 PM EDT 10/31/2024 12:27 PM EDT Jose Azevedo MD LAB BLOOD ORDERABLES Final Resul t Performing Organization Address City/[facility]/ZIP Co de Phone Number [facility] [address] [place] [address], [place] [phone] * Triiodothyronine free (10/31/2024 12:27 PM EDT) T3, Free 298 230 - 420 pcg/dL LAB CHEMISTRY METHOD 10/31/2024 9:22 PM EDT [facility] Blood Venous blood specimen / Unknown Venipuncture / Unknown 10/31/2024 12:27 PM EDT 10/31/2024 12:27 PM EDT Jose Azevedo MD LAB BLOOD ORDERABLES Final Resul t Performing Organization Address [facility]/ZIP Co de Phone Number [facility] [address] [place] [address], [place] [phone] * Hemoglobin A1c (10/31/2024 12:27 PM EDT) Hemoglobin A1C 5.5 <6.5 % LAB CHEMISTRY METHOD 10/31/2024 2:25 PM EDT [facility] Mean Bld Glu Estim. 111 mg/dL LAB CHEMISTRY METHOD 10/31/2024 2:25 PM EDT [facility] Blood Venous blood specimen / Unknown Venipuncture / Unknown 10/31/2024 12:27 PM EDT 10/31/2024 12:27 PM EDT Jose Azevedo MD LAB BLOOD ORDERABLES Final Resul t Performing Organization Address City/[facility]/ZIP Co de Phone Number [facility] [address] [place] [address], [place] [phone] * Vitamin B12 (10/31/2024 12:27 PM EDT) Pathologist [facility] Vitamin B-12 617 250 - 900 pcg/mL LAB CHEMISTRY METHOD 10/31/2024 10:58 PM EDT [facility] Blood Venous blood specimen / Unknown Venipuncture / Unknown 10/31/2024 12:27 PM EDT 10/31/2024 12:27 PM EDT Jose Azevedo MD LAB BLOOD ORDERABLES Final Resul t Performing Organization Address [facility]/ZIP Co de Phone Number [facility] [address] [place] [address], [place] [phone] * Comprehensive metabolic panel (10/31/2024 12:27 PM EDT) [facility] Sodium 139 133 - 145 mmol/L LAB CHEMISTRY METHOD 10/31/2024 2:52 PM EDT [facility] Potassium 3.8 3.5 - 5.5 mmol/L LAB CHEMISTRY METHOD 10/31/2024 2:52 PM T [facility] Chloride 107 96 - 110 mmol/L LAB CHEMISTRY METHOD 10/31/2024 2:52 PM EDT [facility] CO2 26 21 - 32 mmol/L LAB CHEMISTRY METHOD 10/31/2024 2:52 PM EDT [facility] Anion Gap 6 3 - 11 LAB CHEMISTRY METHOD 10/31/2024 2:52 PM EDT [facility] Glucose 87 70 - 100 mg/dL LAB CHEMISTRY METHOD 10/31/2024 2:52 PM EDT [facility] BUN 15 5 - 25 mg/dL LAB CHEMISTRY METHOD 10/31/2024 2:52 PM EDT [facility] Creatinine 0.79 0.50 - 1.10 mg/dL LAB CHEMISTRY METHOD 10/31/2024 2:52 PM [facility] eGFR 98 >=60 mL/min/1. 73m2 LAB CHEMISTRY METHOD 10/31/2024 2:52 PM [facility] Comment:Calculation based on the Chronic Kidney Disease Epidemiology Collaboration (CKD-EPI) equation refit without adjustment for race. BUN/Creatinine Ratio 19.0 LAB CHEMISTRY METHOD 10/31/2024 2:52 PM [facility] Calcium 9.6 8.5 - 10.5 mg/dL LAB CHEMISTRY METHOD 10/31/2024 2:52 PM [facility] AST (SGOT) 30 10 - 42 unit/L LAB CHEMISTRY METHOD 10/31/2024 2:52 PM [facility] ALT (SGPT) 28 10 - 60 unit/L LAB CHEMISTRY METHOD 10/31/2024 2:52 PM [facility] Alkaline Phosphatase 69 42 - 121 unit/L LAB CHEMISTRY METHOD 10/31/2024 2:52 PM [facility] Total Protein 7.7 6.0 - 8.0 g/dL LAB CHEMISTRY METHOD 10/31/2024 2:52 PM [facility] Albumin 3.9 3.2 - 5.0 g/dL LAB CHEMISTRY METHOD 10/31/2024 2:52 PM [facility] Total Bilirubin 0.4 0.0 - 1.4 mg/dL LAB CHEMISTRY METHOD 10/31/2024 2:52 PM [facility] Blood Venous blood specimen / Unknown Venipuncture / Unknown 10/31/2024 12:27 PM EDT 10/31/2024 12:27 PM EDT us Jose Azevedo MD LAB BLOOD ORDERABLES Final Resul t [facility] [address] [place] [address], from Last 3 Months Insurance [facility] Member Subscriber Plan / Payer (Ef fective 2013-Present) Name:STEPHANIE RETANA Relation to Subscriber:Self Name:Stephanie Silverman Payer ID:[id number] Group ID:[id number] Type:Not on file Address: [facility] [address] [id number] Care Teams Cabinet Builder Relationship Specialty Start Date End Date Jose Azevedo MD [address] [place] [phone] PCP - General 10/05/22
--- OUTSIDE RECORDS SUMMARY | 2024-12-20 13:08 | XMS_ITS | Clinical Summary ---
Author Organization [facility] Address [address] [employer] [facility] [address] [place] [address] Phone Care Team Providers Care Brass Pourer Name Role Phone Marilin Wong SOLAR SALES ADVISOR Unavailable [phone] Nicole Biswas NP Primary Care Provider [phone] Allergies No known active allergies Medications clonazePAM [...] Courtney Hill M.D., Director Clinical Immunology Laboratory [id number] Normal: Negative at 1:10 Anti-stebbins DNA Antibodies detected on Crithidia Luciliae Substrate [...] other rheumatic diseases or in drug-induced SLE. Shbc-ulhkkh-woaevhbv DNA antibodies are usually detected in SLE [...] method is an immunoenzymatic assay manufactured by [employer] and performed on the [employer] DXI 800. Values obtained from different assay [...] method is an immunoenzymatic assay manufactured by [employer] and performed on the [employer] DXI 800. Values obtained from different assay [...] is also having a consultation with an handbell choir director to review the abnormal thyroid ultrasound. 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 She has normal thyroid function. Through an varnish cooker 28 minutes was spent in this visit of which 50% of the time was spent in direct conversation with the patient through the varnish cooker going through the meaning of the multiple [...] method is an immunoenzymatic assay manufactured by [employer] and performed on the [employer] DXI 800. Values obtained from different assay [...] Final Comment: Performing Physician, Deep Mac M.D., [id number] Normal: Negative at 1:10 Anti-stebbins DNA Antibodies detected on Crithidia Luciliae Substrate [...] other rheumatic diseases or in drug-induced SLE. Mrio-vczfgt-fvxbrnhn DNA antibodies are usually detected in SLE [...] of this 28-minute visit was spent in ujhw-zj-jfuu conversation going over the natural history and treatment of both of fibromyalgia and systemic lupus, going over her medication list, and the risks and benefits of continued use of current treatment. This was all done through a assembler dc field yoke. All questions were answered. No visits with [...] of this 28-minute visit was spent in kvfy-ut-jynk conversation with the patient going over the [...] of lupus was discussed with her through varnish cooker. I think she is doing reasonably well [...] this 28 minute visit was spent in ccnm-xu-ouna conversation with the patient going over the risks and benefits of her medication and the natural history of systemic lupus. Assessment & Plan (03/23/2017 3:27 PM EST): Patient is doing better when she has a long time. She still feels fatigued in her muscles ache and I did go over in great detail with her and her without of the wind up worker how to do quadriceps strengthening exercises twice [...] get some help by consulting dermatology in [place] whom she has gone to before with [...] Courtney Hill M.D., Director Clinical Immunology Laboratory [id number] Normal: Negative at 1:10 Anti-stebbins DNA Antibodies detected on Crithidia Luciliae Substrate [...] other rheumatic diseases or in drug-induced SLE. Gvax-vfmqpv-aeclmhof DNA antibodies are usually detected in SLE [...] of this 28-minute visit was spent in ncjb-tw-cizx conversation with the patient, her boyfriend, and varnish cooker going over her back pain and had [...] this 29 minute visit was spent in zjda-um-pcun conversation with the patient, her significant other [...] which is being evaluated again by the resizer operator and both he and I have requested [...] file Insurance CARE MEDICARE REPLACEMENT NAYAN HALL [facility] [place] [address] MEDICARE REPLACEMENT CARE MEDICARE REPLACEMENT CARE MEDICARE REPLACEMENT [facility] CARE MEDICARE REPLACEMENT MEDICARE REPLACEMENT MEDICARE REPLACEMENT MEDICARE REPLACEMENT [facility] C[facility] MEDICARE REPLACEMENT Care Teams Brass Pourer Relationship Specialty Start Date End Date Nicole Biswas NP [address] [place] [address] [address] [place] [address] PCP - General Family Medicine 01/12/19 Marilin Wong FNP [address] [place] [address] Family Medicine 03/22/18 Additional Source Comments The information contained in this document represents components of the legal health record. It is not the complete legal health record.[facility]
--- OUTSIDE RECORDS SUMMARY | 2024-12-20 13:08 | XMS_ITS | Encounter Summary ---
Author Organization [facility] Address [address] [place] [address] Phone Care Team Providers Care Signal Engineer Name Role Phone Marilin Wong Unavailable [phone] Nicole Biswas HEARING CARE PRACTITIONER Primary Care Provider [phone] Encounter Details Date Type Department Care Team (Late st Contact Info) Description 10/01/2019 Procedure [facility], [address] [address] Social History Tobacco Use Types Packs/Day Years Used Date Smoking Tobacco: Former Cigarettes 0.3 8 2 008 - 2015 Smokeless Tobacco: Never Alcohol Use Standard [...] on filedocumented in this encounter Care Teams Signal Engineer Relationship Specialty Start Date End Date Nicole Biswas NP [address] [facility] [address] 3 [place] [address] PCP - General Family Medicine 01/12/19 Marilin Wong FNP [address] [place] [address] Family Medicine 03/22/18 documented as of this encounter Additional Source Comments The information contained in this document represents components of the legal health record. It is not the complete legal health record.[facility]
--- OUTSIDE RECORDS SUMMARY | 2024-12-20 13:08 | XMS_ITS | Clinical Summary ---
Author Organization [facility] Address [address] [facility] [address] [place] [address] Phone Care Team Providers Care Service Porter Name Role Phone Deena Sam MD Primary [...] which is being evaluated again by the wax pattern assembler and both he and I have requested [...] Courtney Hill M.D., Director Clinical Immunology Laboratory [id number] Normal: Negative at 1:10 Anti-ponca of [place] DNA Antibodies detected on Crithidia Luciliae Substrate [...] other rheumatic diseases or in drug-induced SLE. Lwvs-jyrcgc-pljchblg DNA antibodies are usually detected in SLE [...] Diagnosis of Tuberculosis in Adults and Children [Lewagustina PEREZ et. al. Clin. Infect. Dis. 2017;64(2):111-115]. [...] Courtney Hill M.D., Director Clinical Immunology Laboratory [id number] Normal: Negative at 1:10 Anti-ponca of [place] DNA Antibodies detected on Crithidia Luciliae Substrate [...] other rheumatic diseases or in drug-induced SLE. Otjm-vkqzhx-actmplsm DNA antibodies are usually detected in SLE [...] of 2 - PCV) 02/14/2004 Influenza Vaccine (#1) 2024 02/18/2020 Insurance [facility] ([id number]) [place] [id number] [facility] ([id number]) [place] [id number] Care Teams Service Porter Relationship Specialty Start Date End Date Deena Sam MD [address] [place] [address] PCP - General Internal Medicine 02/16/21
--- OUTSIDE RECORDS SUMMARY | 2024-12-20 13:08 | XMS_ITS | Patient Health Record ---
Author Organization [facility] Address [address] [facility] [address] [place] [address] Care Team Providers Care Asian Art Curator Name Role Phone [place], [facility] Primary Care Provider Unavailab Jania Pennington Unavailable [phone] Allergies No Known Allergies Results Component Value Reference Range Notes Urinalysis Reviewed date:09/24/2024 04:03:51 PM Interpretation: Performing Lab: Notes/Report: PH 5.0 PROTEIN trace GLUCOSE neg BLOOD moderate [id number] IGP, CtNg Culture 30 Plus Reviewed date:09/28/2024 10:15:22 AM Interpretation: Performing Lab:[facility], [address], [address], [place], Phone - [phone], Director - [facility] Notes/Report: Clinical Information:[id number] LMP / Prev Treat...[id number] Dates / Results....09/01/2023 nil neg hpv No. of containers..01 ThinPrep Vial Clinical Information:[id number] LMP / Prev Treat...[id number]=[id number] Dates / Results....09/01/2023 nil neg hpv No. of containers..01 ThinPrep Vial DIAGNOSIS: NEGATIVE FOR INTRAEPITHELIAL LESION OR MALIGNANCY. PREDOMINANCE OF COCCOBACILLI CONSISTENT WITH SHIFT IN VAGINAL PHILOMENA IS PRESENT. Specimen adequacy: Satisfact ory for evaluation. No endocervical component is identified. Clinician provided ICD10: Z01.419 Z72.51 Performed by: Sandra aguilar, Financial Services Officer (ASCP) . . Note: The Pap smear [...] of an image guided system. HPV Aptima Positive Negative This nucleic acid amplification test detects fourteen high-risk HPV types (16,18,31,33,35,39,45,51,52,56 ,58,59,66,68) without differentiation. HPV Genotype Reflex Criteria met, see HPV Genotype results. Chlamydia, Nuc. Acid Amp Negative Negative Gonococcus, Nuc. Acid Amp Negative Negative HPV Genotype 16 Negative Negative HPV Genotype 18,45 Negative Negative PDF Report Reviewed date:09/26/2024 06:29:03 PM Interpretation: Performing Lab:[facility], [address], [address], [employer], Phone - [phone], Director - [facility] Notes/Report: Clinical Information:[id number] LMP / Prev Treat...[id number] Dates / Results....09/01/2023 nil neg hpv No. of containers..01 ThinPrep Vial HBsAg Screen-[id number] Reviewed date:09/28/2024 04:49:50 PM Interpretation: Performing Lab:[facility], [address], [address], [employer], Phone - [phone], Director - [facility] Notes/Report: Clinical Information:SRC:UR HBsAg Screen Negative Negative HIV Ab/p24 Ag with Reflex-08 3935 Reviewed date:09/28/2024 04:49:38 PM Interpretation: Performing Lab:[address], [address], [employer], Phone - [phone], Director - [facility] Notes/Report: Clinical Information:SRC:UR HIV Ab/p24 Ag Screen Non Reactive Non Reactive HIV-1/HIV-2 antibodies and HIV-1 p24 antigen were NOT detected. There is no laboratory evidence of HIV infection. HIV Negative M genitalium NARINDER, Urine-1800 25 Reviewed date:09/28/2024 04:49:27 PM Interpretation: Performing Lab:[facility], [address], [address], [employer], Phone - [phone], Director - [facility] Notes/Report: Clinical Information:SRC:UR Mycoplasma genitalium NARINDER Negative Negative HCV Antibody-[id number] Reviewed date:09/28/2024 04:49:32 PM Interpretation: Performing Lab:[facility] [place], [address], [address], [employer], Phone - [phone], Director - [facility] Notes/Report: Clinical Information:SRC:UR Hep C Virus Ab Non Reactive Non Reactive HCV antibody alone does not differentiate between previously resolved infection and active infection. Equivocal and Reactive HCV antibody results should be followed up with an HCV RNA test to support the diagnosis of active HCV infection. PDF Report Reviewed date:09/28/2024 04:46:14 PM Interpretation: Performing Lab:[facility] [place], [address], [address], [employer], Phone - [phone], Director - [facility] Notes/Report: Clinical Information:SRC:UR Syphilis RPR w/reflex Reviewed date:09/28/2024 04:49:44 PM Interpretation: Performing Lab:[facility] [place], [address], [address], [employer], Phone - [phone], Director - [facility] Notes/Report: Clinical Information:SRC:UR RPR Non Reactive Non Reactive Reason For Referral No Information Medications Medication SIG (Take, Route, Frequency, Duration) Notes Start Date End Date Status Flovent HFA 09/01/2023 Active Pregabalin 150 MG Oral; Duration: 90 Days Active clonazePAM 1 MG Orally Acti ve Folic Acid Active Meloxicam 15 MG 1 tablet Orally Once a day Active Zolpidem Tartrate 10 MG Oral; Duration: 30 Days Active Lyrica 150 MG Orally Active Escitalopram Oxalate 10 MG TOME DOS TABL ETAS POR V A ORAL TODOS LOS D EN LA MA NIKKI Oral; Duration: 30 Active CellCept 500 MG Orally Acti ve Mycophenolate Mofetil 250 MG 1 capsule O rally Twice a day Active Social History Tobacco Use: Social History Observation Description Date Details (start date - stop date) Current Smoker NA - NA Sexual History Question Answer Notes Had sex in the past 12 months (vaginal, oral, or anal)? Yes with Men only Prevention strategies discussed: Other Tobacco use other than smoking: Question Answer Notes Are you an other tobacco user? Yes AUDIT-C (Standard) Question Answer Notes Did you have a drink containing alcohol in the p ast year? No Points 0 Interpretation Negative Tobacco Control (Standard) Question Answer Notes Tobacco use: Current smoker How often do you smoke cigarettes? Every day How many cigarettes a day do you smoke? 5 or les s Problems Problem Type SNOMED Code ICD Code Onset Dates Problem Status W/U Status Risk Notes Problem Human papilloma virus deoxyribonucleic acid test positive, high risk on vaginal specimen (747358634497289) Cervical high risk human papillomavirus (HPV) DNA test positive (R87.810) Active confirmed Problem Mild cervical dysplasia (382308355) Mild cervical dysplasia (N87.0) Active confirmed Problem Moderate cervical dysplasia (684475032) Moderate cervical dysplasia (N87.1) Active confirmed Problem Major depression, single episode (45516761) Major depressive disorder, single episode, unspecified (F32.9) Active confirmed Problem Anxiety disorder (040139621) Anxiety disorder, unspecified (F41.9) Active confirmed Problem Systemic lupus erythematosus (01521218) Systemic lupus erythematosus, unspecified (M32.9) Active confirmed Problem Fibromyalgia (517543957) Fibromyalgia (M79.7) Active confirmed Problem Abnormal vaginal bleeding (036038256) Other specified abnormal uterine and vaginal bleeding (N93.8) Active confirmed Problem Abnormal uterine bleeding (20147659418440) Abnormal uterine and vaginal bleeding, unspecified (N93.9) Active confirmed Problem Sexual dysfunction (37158912) Sexual dysfunction, unspecified (R37) Active confirmed Problem History of dysplasia of cervix (164534011) Personal history of cervical dysplasia (Z87.410) Active confirmed Vital Signs Temperature 97.5 degrees Fahrenheit 09/24/2024 Blood pressure diastolic 66 mm Hg 09/24/2024 Height 65 in 09/24/2024 Blood pressure systolic 122 mm Hg 09/24/2024 Weight 194 lbs 09/24/2024 BMI 32.28 kg/m2 09/24/2024 Encounters Encounter Location Date Provider Diagnosis [address] [place] [address] 09/24/2024 Jania Sepulveda Encounter for screening mammogram for malignant neoplasm of breast Z12.31 ; High risk heterosexual behavior Z72.51 ; Personal history of cervical dysplasia Z87.410 and Encounter for gynecological examination (general) (routine) without abnormal findings Z01.419 Assessments Encounter Date Diagnosis (ICD Code) Assessment Notes Treatment Notes Treatment Clinical Notes Section Notes 09/24/2024 Encounter for screening mammogram for malignant neoplasm of breast (ICD-10 - Z12.31) REGULAR MAMMOGRAMS AND SBE'S WERE RECOMMENDED. FIRST MAMMOGRAM IN DEC 2024. 09/24/2024 High risk heterosexual behavior (ICD-10 - Z72.51) GC & CHLAMYDIA TESTS WITH PAP SMEAR. SERUM STD TESTS WERE DISCUSSED AND ORDERED. 09/24/2024 Personal history of cervical dysplasia (ICD-10 - Z87.410) DISCUSSED PREVIOUS LEEP AND CERVICAL DYSPLASIA. REPEAT PAP TEST WITH HPV TYPING WAS OBTAINED. 09/24/2024 Encounter for gynecological examination (general) (routine) without abnormal findings (ICD-10 - Z01.419) PAP TEST WITH HPV TYPING WAS OBTAINED. Plan Of Treatment Pending Test Test Name Order Date Urinalysis 04/28/2018 CYTOLOGY (MARKET RELATIONSHIP MANAGER) 08/10/2017 CYTOLOGY (MARKET RELATIONSHIP MANAGER) 07/26/2022 THIN PREP,HPV,FAISAL IF HPV+ (>29YR)(DIAG) 04/28/2018 THIN PREP,HPV,FAISAL IF HPV+ (>29YR)(SCRN) 07/13/2017 TEST, (IN HOUSE) 08/10/2017 MM Digital Mammo Screening 09/24/2024 Alkaline Phosphatase-511705 09/24/2024 HBsAg Screen-348087 09/24/2024 HBsAg Screen-047728 09/01/2023 HIV Ab/p24 Ag with Reflex-901946 024 HIV Ab/p24 Ag with Reflex-249415 025 M genitalium NARINDER, Urine-033978 5 RPR Qn+TP Abs-[id number] 09/01/2023 HCV Antibody-949422 09/01/2023 HCV Antibody-409900 09/24/2024 Syphilis RPR w/reflex 09/24/2024 Next Appt Details Provider Name:Jania albarran, 09/30/2025 10:00:00 AM, [address] [facility], [address], [place], [address], Insurance Providers Payer Name Payer Address Payer Phone Subscriber Number Group Number Insured Name Patient Relationship to Insured Coverage Start Date Coverage End Date [facility] [address] [address] [place] [address] [id number] BRETT RETANA Self - patient is the [...]
--- OUTSIDE RECORDS SUMMARY | 2024-12-20 13:08 | XMS_ITS | Encounter Summary ---
Author Organization [facility] Address [address] [facility] [address] [place] [address] Phone Care Team Providers Care Erco Machine Operator Name Role Phone Marilin Wong AIRCRAFT DE ICER INSTALLER Unavailable Nicole Biswas SHAKE MAKER Primary Care Provider [phone] Encounter Details Date Type Department Care Team (Late st Contact Info) Description 03/17/2020 Ancillary Orders ,Outside Imaging [address] [place] [address] System, Provider Not In, [facility] [address] [address] Social History Tobacco Use Types Packs/Day Years [...] on file documented as of this encounter Results * US Thyroid Gland Outside (No Interpretation) (02/29/2020 12:00 AM EST) Narrative SYSTEMGENERATED, DOCUMENTATION - 03/17/2020 1:42 PM EST This study is for PACS storage only and not for interpretation. us Provider Not In System PhD IMG OUTSIDE IMAGING W /OUT INTERPRETATION Final Result * MRI Neck Outside (No Interpretation) (01/23/2020 12:00 AM EDT) Narrative SYSTEMGENERATED, DOCUMENTATION - 03/17/2020 1:43 PM EST This study is for PACS storage only and not for interpretation. us Provider Not In System PhD IMG OUTSIDE IMAGING W /OUT INTERPRETATION Final Result documented in this encounter Visit Diagnoses Not on filedocumented in this encounter Care Teams Erco Machine Operator Relationship Specialty Start Date End Date Nicole Biswas NP [address] [place] [address] 3 [place] [address] PCP - General Family Medicine 01/12/19 Marilin Wong FNP [address] [place] [address] [email or web address] Family Medicine 03/22/18 documented as of this encounter Additional Source Comments The information contained in this document represents components of the legal health record. It is not the complete legal health record.[facility]
== END 2024-12-20 12:25 | disposition home or self-care (01) ==
LOC: HO.HKAS 12:08
PROVIDERS: PCP Student in an Organized Health Care Education/Training Program; Visit Provider Internal Medicine Nephrology
DX: Z79.60 Long term (current) use of unspecified immunomodulators and immunosuppressants (principal); M32.19 Other organ or system involvement in systemic lupus erythematosus
CPT/HCPCS: 99214

== ENCOUNTER → 2024-12-20 12:07 | Outpatient (BNVA) | payer OTHER, SELFPAY | PROVIDERS: PCP Student in an Organized Health Care Education/Training Program; Visit Provider Internal Medicine Nephrology | DX: M32.19 Other organ or system involvement in systemic lupus erythematosus (principal); Z79.60 Long term (current) use of unspecified immunomodulators and immunosuppressants | CPT/HCPCS: 99212 ==

== ENCOUNTER 2025-02-27 09:39 | Outpatient (AMB) | payer OTHER, SELFPAY ==
--- OUTSIDE RECORDS SUMMARY | 2024-09-06 06:00 | XMS_ITS ---
Author Organization [facility] Address [address] [place] [address] [address] [place] [address] Care Team Providers Care Project Intern Name Role Phone MORALES LA, CORBIN Primary Care Provider Unavailab Jania Pennington Unavailable [phone] REASON FOR VISIT Annual SUPERVISOR GATE SERVICES Physical Encounters Encounter Location Date Provider Diagnosis [facility] [address] [place] [address] [address] [place] [address] 09/06/2024 Jania Sepulveda Plan Of Treatment Next Appt Details Provider Name:Jania albarran, 09/30/2025 10:00:00 AM, [address] [place] [address], [address], [place], [address], Progress Notes * MELODY RETANAB: 5 (40 yo F)Acc No.[id number]:09/06/2024 PROGRESS NOTES Patient: BRETT RENTERIA Appointment Provider: Rosy Sepulveda M.D. :1985 A ge:39 Y S ex:Female Date:09/06/2024 Address:[address] [place], [place] [id number] Pcp:CORBIN NIELSEN MD Subjective: * Chief Complaints: * 1 . Annual SUPERVISOR GATE SERVICES Physical. * Medical History: Objective: * Vitals: Assessment: Plan: * Treatment: * Images: Billing Information: * Visit Code: * Procedure Codes: * Electronic signature of Romario Sepulveda MD on 02/27/2025 at 10:48 AM EST Sign off status: Pending * Appointment Provider: Rosy Sepulveda M.D. Date: 0 09/06/2024 Generated for Thierno muller/Lindy/Marioitting on: 1 04/29/2024 10:48 AM EST
--- NOTE | 2025-02-27 09:46 | MHC.OFFVIS ---
Vital Signs 02/27/25 09:47 Height 5 ft 5 in Weight 186 lb 4.65 oz BMI 31.0 BP 100/70 Blood Pressure Location Lt brachial Position Sitting Pulse 71 Pulse Source Pulse Oximeter Pulse Oximetry (%) 97 Oxygen Delivery Method Room Air Intake Visit Reasons: 3 Months Desulfurizer Operator Services: Desulfurizer Operator Present Desulfurizer Operator Name: brooke [id number] Information Interpreted: non-clinical & clinical Accompanied by: Self / Same As Patient Allergies No Known Allergies Allergy (Verified 12/20/24 12:11) HPI HPI 3 Months: Details: She is doing PT exercises at home learned from PT in the past when she went to PT after fracturing left tibia in the past. She does not want to go to PT because she did not have benefit in the past. She has a personal traininer 30 minutes daily. Goes to the gym 3 times a week. Uses tylenol 1300mg 3 times week PRN pain. She wears ankle support brace without benefit. She lost weight. Denies rash, dyspnea, plurisy, oral ulcers, urinary symptoms, fevers. No new joint swelling. +hair loss SHe work up with upper right back pain today. SHe has chronic back pain and left sided back pain. She had cortisone injections by pain management that were ineffective. She has been having massages every 3 months without benefit. [facility] Medical History Long-term use of immunosuppressant medication Fibromyalgia Lupus (systemic lupus erythematosus) Surgical History History of tubal ligation History of surgery on lower extremity History of thyroid surgery Family History Mother Diabetes Lupus Brother Diabetes Social History Household Members: Significant Other and Children Alcohol intake: never Patient Tobacco Use Status: Former Tobacco user Current occupational status: disabled Physical Exam Vital Signs: Last Vital Signs Pulse 71 02/27/25 09:47 BP 100/70 02/27/25 09:47 Pulse Ox 97 02/27/25 09:47 Oxygen Delivery Method Room Air 02/27/25 09:47 BMI result Body Mass Index 31.0 Const Other: General: Comfortable CVS: RRR Respiratory: clear to auscultation bilaterally. Good respiratory effort Skin: Mass behind left ear the size of a quarter, without fluctuance, hard. MSK: No synovitis. Normal range of motion of upper extremities. Tender to palpate bilateral knees with crepitus palpated. Normal range of motion of lower extremities. Tender right Achilles tendon at the attachment of the calcaneus. No ankle tenderness. No MTP tenderness. Assessment & Plan Assessment & Plan (1) Lupus (systemic lupus erythematosus): Comment: Controlled on HCQ 400mg qd. We reviewed labs from last visit. She has seen a few surgeons for consideration of breast reduction who have declined surgery based on her history of lupus. We discussed that her lupus is controlled at this time and that I have no contraindication to surgery. She will further discuss with her surgeon. Rheumatology history: On Cellcept and HCQ over 10 years. Dx 2006 (skin biopsy-proven, arthralgias, rashes, scarring alopecia, proteinuria, pericarditis) Code(s): M32.9 - Systemic lupus erythematosus, unspecified Category: Medical Qualifiers: Systemic lupus erythematosus organ involvement: other Systemic lupus erythematosus type: other Qualified Code(s): M32.19 - Other organ or system involvement in systemic lupus erythematosus Plan: labs for SLE and drug monitoring ordered Continue HCQ 400mg daily. JAN 3011/2024 ok. Continue MMF 500mg BID RTC 3 months (2) Bilateral knee pain: Comment: Chronic. Right knee pain is worse than left knee. Failed home exercise program and Tylenol. She declined physical therapy due to her prior history of not having any benefit with PT after she had surgery secondary to left tibial fracture. 08/2024 x-ray notes small to moderate right effusion. Noncompliant with knee brace. Code(s): M25.561 - Pain in right knee; M25.562 - Pain in left knee Category: Medical Qualifiers: Chronicity: chronic Qualified Code(s): M25.561 - Pain in right knee; M25.562 - Pain in left knee; G89.29 - Other chronic pain Plan: Start Celebrex 200 mg twice a day Work with executive personal assistant with quadricep strengthening Consider further imaging with MRI right knee with contrast (r/o inflammatory arthritis and ligament tear) if she does not have benefit with above RTC 3 months (3) Achilles tendinosis of right lower extremity: Comment: We discussed conservative management. She declined PT. Code(s): M67.88 - Other specified disorders of synovium and tendon, other site Category: Medical Plan: Continue bracing wear supportive footwear Work with executive personal assistant for exercise program for ankle strengthening RTC 3 months (4) Trapezius muscle strain: Comment: Chronic Code(s): S46.819A - Strain of other muscles, fascia and tendons at shoulder and upper arm level, unspecified arm, initial encounter Category: Medical Qualifiers: Encounter type: initial encounter Laterality: unspecified laterality Qualified Code(s): S46.819A - Strain of other muscles, fascia and tendons at shoulder and upper arm level, unspecified arm, initial encounter Plan: Continue to apply heat to neck Continue massages Start Celebrex 200 mg twice a day I recommend that she follow up with pain management for consideration of intervention such as trigger point injections versus muscle relaxer Return to clinic in 3 months Orders: Orders Complete Blood Count Auto Diff Today M32.9 - Systemic lupus erythematosus, unspecified Complement C3 Today M32.9 - Systemic lupus erythematosus, unspecified Creatinine Today M32.9 - Systemic lupus erythematosus, unspecified Anti DNA DS Antibody Today M32.9 - Systemic lupus erythematosus, unspecified Erythrocyte Sedimentation Rate Today M32.9 - Systemic lupus erythematosus, unspecified Protein Creatinine Ratio, Ur Today M32.9 - Systemic lupus erythematosus, unspecified Alanine Aminotransferase Today M32.9 - Systemic lupus erythematosus, unspecified Aspartate Amino Transferase Today M32.9 - Systemic lupus erythematosus, unspecified Complement C4 Today M32.9 - Systemic lupus erythematosus, unspecified UA ClnCatch+Micro w/rflx Cult Today M32.9 - Systemic lupus erythematosus, unspecified C Reactive Protein Today M32.9 - Systemic lupus erythematosus, unspecified Medications: New celecoxib 200 mg PO BID 60 caps 2RF 30 days Refilled mycophenolate mofetil 500 mg PO BID 180 tabs 0RF 90 days hydroxychloroquine 200 mg PO BID 180 tabs 3RF 90 days M32.19 - Other organ or system involvement in systemic lupus erythematosus Discontinued meloxicam Take with food. Discontinued Reason: Doctor's Order 15 mg PO DAILY 30 tabs 2RF Coding Level of Care Code Est Pt Level 4 (43636) Complex EM visit Add On G2211 Diagnoses Other systemic lupus erythematosus with other organ involvement M32.19 Systemic lupus erythematosus organ involvement: other Systemic lupus erythematosus type: other Chronic pain of both knees M25.561; M25.562; G89.29 Chronicity: chronic Achilles tendinosis of right lower extremity M67.88 Strain of trapezius muscle, unspecified laterality, initial encounter S46.819A Encounter type: initial encounter Laterality: unspecified laterality
[2025-02-27 09:47] VITALS: BP 100/70; PULSE 71; O2SAT 97; BMI 31.0
--- OUTSIDE RECORDS SUMMARY | 2025-02-27 10:48 | XMS_ITS | Clinical Summary ---
Author Organization [address] [facility] Address [address] [place] [address] Phone Care Team Providers Care Raw Stock Machine Feeder Name Role Phone Jose Azevedo MD Primary Care Provider [phone] Allergies No known active allergies Medications albuterol [...] by mouth 2 times daily. 4 Active diclofenac (VOLTAREN) 1 % topical gel [...] A ORAL TODOS LOS D CON ALIMENTO 5 Active folic acid (FOLVITE) 1 mg tablet TAKE 1 TABLET BY MOUTH 1 TIME EACH DAY. 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 Myofascial pain 07/21/2021 Fibromyositis 07/21/2021 Asthma 07/21/2021 Proteinuria 01/19/2021 Osteoarthritis of right foot 09/18/2020 Thyroid cyst 03/05/2020 Rotator cuff impingement syndrome of left should er 03/05/2020 Thrush 02/18/2020 Spinal enthesopathy of cervical region ([facility] V24) 02/18/2020 Cervical radiculitis 11/05/2019 Systemic lupus erythematosus encephalitis ([facility] V24, [facility] V28) 10/01/2019 Overview (01/23/2025): Last Assessment & Plan: Reviewed MRI indicating no evidence of vasculopathy or cerebritis. Patient is feeling somewhat better. No hallucinations, tics, or dark depressive moods. Subacute cutaneous lupus erythematosus 9 Alopecia 03/23/2017 Eczema 06/19/2015 Overview (01/23/2025): Perivascular dermatitis by skin punch biopsy 05/2015, by Gaviota Cotto PA-C Eczema 06/19/2015 Overview (01/23/2025): Perivascular dermatitis by skin punch biopsy 05/2015, by Gaviota Cotto PA-C Encounters Date Type Department Care Team Description 12/28/2024 11:30 AM EDT Office Visit [facility] Hematology Oncology [address] [place] [address] Arlene Cantu, Easy bruisability (Primary Dx) 11/28/2024 3:25 PM EDT - 11/28/2024 11:59 PM EDT Hospital Encounter [facility] CT Scan [address] [place] [address] Lump in neck Discharge Disposition: Home or Self Care from Last 3 Months Immunizations Immunization Administration Dates Next Due Influenza Quadravalent, MDCK , 0.5ml, preservative free (Flucelvax) 6mo and older 05/11/2023 Tdap Tetanus diptheria acell ular pertussis (Boostrix; Adacel) 7yo and older 05/11/2023 Surgical History Surgery Date Site/Laterality Comments OTHER SURGICAL HISTORY 2019 Left PROCEDURE: MD EXC CYST/ADENOMA THYROID/TRANSECTION ISTHMUS; COMMENT: left sidec thyroid cyst removed KNEE SURGERY 2021 Left PROCEDURE: HISTORICAL KNEE SURGERY; COMMENT: done at [facility] TUBAL LIGATION 2003 Bilateral PROCEDURE: HISTORICAL [...] Date Recorded What is your living situation? Unrecognized valu e 08/02/2024 Education Answer Date Recorded What is [...] Sign Reading Time Taken Comments Blood Pressure 120/73 12/28/2024 11:27 AM EDT Pulse 61 12/28/2024 11:27 AM EDT Temperature 37 C (98.6 F) 12/28/2024 11:27 AM EDT Respiratory Rate 18 10/31/2024 12:00 PM EDT Oxygen Saturation 98% 12/28/2024 11:27 AM EDT Inhaled Oxygen Concentration - - Weight 74.4 kg (164 lb) 12/28/2024 11:27 AM EDT Height 165.1 cm (5' 5 ) 12/28/2024 11:27 AM EDT Body Mass Index 27.29 12/28/2024 11:27 AM EDT Plan of Treatment Upcoming Encounters Date Type Department Care Team (Late st Contact Info) Description 08/07/2025 1:00 PM EDT Office Visit Internal Medicine - [address] [place] [address] Jose Azevedo MD [address] [place] [address] Health Maintenance Due Date Last Done Comments Breast Cancer Screening 1985 Hepatitis B Vaccines (1 of 3 - 19+ 3-dose series) 02/14/2004 Pneumococcal Vaccine: Pediatrics (0 to 5 Years) and At-Risk Patients (6 to 49 Years) (1 of 2 - PCV) 02/14/2004 Cervical Cancer Screening: Pap Smear 2006 HPV Vaccines (1 - Risk 3-dose SCDM series) 02/14/2012 HIV Screening 03/28/2022 Hepatitis C Screening 03/28/2022 Medicare Annual Wellness Visit 03/28/2022 COVID-19 Vaccine ( season) 2024 03/21/2021, 08/16/2020, 07/26/2020 Influenza Vaccine (#1) 2024 , 02/18/2020, 01/18/2019, Additional history exists Social Influencers of Health Screening 08/02/2025 08/02/2024 Cholesterol Screening (Lipid Panel) 10/31/2029 10/31/2024, 12/31/2022 DTaP,Tdap,and Td Vaccines (3 - Td or Tdap) 05/11/2033 05/11/2023, 02/27/2014 RSV Immunization Adult Patients (1 - 1-dose 75+ series) 02/14/2060 Depression Screening Completed 06/18/2024 HIB Vaccines Aged [...] 11/28/2024 3:38 PM EDT Lump in neck LIPID PANEL WITH REFLEX TO DIRECT LDL Routine 10/31/2024 12:27 PM EDT Encounter for annual physical exam Encounter for lipid screening for cardiovascular disease from Last 3 Months or Most Recently Relevant to Health Maintenance Results * CT Neck Soft Tissue w Contrast (11/28/2024 3:38 PM EDT) Anatomical Region Laterality Modality Head and Neck Computed Tomogra phy 12/04/2024 11:4 8 AM EDT Impressions 12/04/2024 11:54 AM EDT Impression: 1. Nonspecific subcutaneous soft tissue swelling/nodule posterior to the left ear, measuring 13 x 7 x 18 mm. 2. No cervical lymphadenopathy. [place] ([id number]) -------- FINAL REPORT -------- Dictated By: Lizette Mccabe Dictated Date: 12/04/2024 11:48 ET Assigned Physician: Lizette Mccabe Reviewed and Electronically Signed By: Lizette Mccabe Signed Date: 12/04/2024 11:54 ET Workstation ID: [id number] Transcribed By: Self Edit Transcribed Date: 12/04/2024 11:48 ET Narrative 12/04/2024 11:54 AM EDT History: 39-year-old woman with left-sided neck pain and lump behind left ear. Technique: Helical volumetric imaging of the neck was performed during the uneventful intravenous administration of 90 cc Isovue-370. DLP: 293.59 mGy/cm [employer] VCT Iterative reconstruction technique Findings: There is [...] of 90 cc Isovue-370. DLP: 293.59 mGy/cm [employer] VCT Iterative reconstruction technique Findings: There is [...] mm. 2. No cervical lymphadenopathy. Telerad PA ([id number]) -------- FINAL REPORT -------- Dictated By: Lizette Mccabe Dictated Date: 12/04/2024 11:48 ET Assigned Physician: Lizette Mccabe Reviewed and Electronically Signed By: Lizette Mccabe Signed Date: 12/04/2024 11:54 ET Workstation ID: [id number] Transcribed By: Self Edit Transcribed Date: 12/04/2024 11:48 ET us Latoya Herrera MD IMG CT PROCEDURES Final Result * Lipid panel with reflex to direct LDL (10/31/2024 12:27 PM EDT) Cholesterol 151 0 - 200 mg/dL LAB CHEMISTRY METHOD 10/31/2024 2:52 PM EDT [facility] Triglycerides 86 0 - 150 mg/dL LAB CHEMISTRY METHOD 10/31/2024 2:52 PM EDT [facility] HDL 61 >=40 mg/dL LAB CHEMISTRY METHOD 10/31/2024 2:52 PM EDT [facility] LDL Calculated 73 0 - 100 mg/dL LAB CHEMISTRY METHOD 10/31/2024 2:52 PM EDT [facility] VLDL Cholesterol Jamari 17.2 mg/dL LAB CHEMISTRY METHOD 10/31/2024 2:52 PM EDT [facility] Non HDL Chol. (LDL+VLDL) 90 <145 mg/dL LAB CHEMISTRY METHOD 10/31/2024 2:52 PM EDT [facility] Chol/HDL Ratio 2.5 0.0 - 4.4 LAB CHEMISTRY METHOD 10/31/2024 2:52 PM EDT [facility] Blood Venous blood specimen / Unknown Venipuncture / Unknown 10/31/2024 12:27 PM EDT 10/31/2024 12:27 PM EDT us Jose Azevedo MD LAB BLOOD ORDERABLES Final Resul t [facility] [address] [place] [address], [place] [phone] from Last 3 Months or Most Recently Relevant to Health Maintenance Insurance [facility] Member Subscriber Plan / Payer (Ef fective 2013-Present) Name:BRETT RETANA Relation to Subscriber:Self Name:Brett Silverman Payer ID:[id number] Group ID:[id number] Type:Not on file Address: [address] [place] [address] [employer] MED[employer] Member Subscriber Plan / Payer (Ef fective 2023-Present) Name:Brett Silverman Relation to Subscriber:Self Name:Brett Silverman Payer ID:[id number] Group ID:Not on file Type:Not on file Address: [address] [place] [address] Care Teams Raw Stock Machine Feeder Relationship Specialty Start Date End Date Jose Azevedo MD [address] [place] [phone] PCP - General 10/05/22
--- OUTSIDE RECORDS SUMMARY | 2025-02-27 10:48 | XMS_ITS | Encounter Summary ---
Author Organization [facility] Address [address] [place] [address] Phone Care Team Providers Care Business Support Manager Name Role Phone Deena Sam MD Primary Care Provider Reason for Visit * Reason Comments Med Refill Encounter Details Date Type Department Care Team (Late st Contact Info) Description 12/10/2022 Refill [facility] [address] [place] [phone] Merrick Meza MD Social History Tobacco Use [...] on filedocumented in this encounter Care Teams Business Support Manager Relationship Specialty Start Date End Date Deena Sam MD [address] [place] [address] [address] [place] [address] PCP - General Internal Medicine 02/16/21 documented as of this encounter
--- OUTSIDE RECORDS SUMMARY | 2025-02-27 10:49 | XMS_ITS | Encounter Summary ---
Author Organization [facility] Address [address] [place] [address] Phone Care Team Providers Care Yoker Machine Operator Name Role Phone Marilin Wong Unavailable Nicole Biswas TV PRODUCTION ASSISTANT Primary Care Provider [phone] Encounter Details Date Type Department Care Team (Late st Contact Info) Description 10/01/2019 Procedure [facility], [address] [address] Social History Tobacco Use Types Packs/Day Years [...] on filedocumented in this encounter Care Teams Yoker Machine Operator Relationship Specialty Start Date End Date Nicole Biswas NP [address] [place] [address] PCP - General Family Medicine 01/12/19 Marilin Wong FNP [address] [place] [id number] Family Medicine 03/22/18 documented as of this encounter Additional Source Comments The information contained in this document represents components of the legal health record. It is not the complete legal health record.[facility]
--- OUTSIDE RECORDS SUMMARY | 2025-02-27 10:49 | XMS_ITS | Patient Health Record ---
Author Organization [facility] Address [address] [facility] [address] [place] [address] Care Team Providers Care Ocean Fishing Guide Name Role Phone [place], [facility] Primary Care Provider Unavailab Jania Pennington Unavailable [phone] Allergies No Known Allergies Results Component Value Reference Range Notes [id number] IGP, CtNg Culture 30 Plus Reviewed date:09/28/2024 10:15:22 AM Interpretation: Performing Lab:[facility], [address], [address], [place], Phone - [phone], Director - [facility] Notes/Report: Clinical Information:[id number] LMP / Prev Treat...[id number]=[id number] Dates / Results....09/01/2023 nil neg hpv No. of containers..01 ThinPrep Vial Clinical Information:[id number] LMP / Prev Treat...IWU=[id number] Dates / Results....09/01/2023 nil neg hpv No. of containers..01 ThinPrep Vial DIAGNOSIS: NEGATIVE FOR INTRAEPITHELIAL LESION OR MALIGNANCY. PREDOMINANCE OF COCCOBACILLI CONSISTENT WITH SHIFT IN VAGINAL PHILOMENA IS PRESENT. Specimen adequacy: Satisfact ory for evaluation. No endocervical component is identified. Clinician provided ICD10: Z01.419 Z72.51 Performed by: Sandra aguilar, Mica Paster (ASCP) . . Note: The Pap smear [...] Negative Negative HPV Genotype 18,45 Negative Negative Urinalysis Reviewed date:09/24/2024 04:03:51 PM Interpretation: Performing Lab: Notes/Report: PH 5.0 PROTEIN trace GLUCOSE neg BLOOD moderate Syphilis RPR w/reflex Reviewed date:09/28/2024 04:49:44 PM Interpretation: Performing Lab:[facility], [address], [address], [place], Phone - [phone], Director - [facility] Notes/Report: Clinical Information:SRC:UR RPR Non Reactive Non Reactive PDF Report Reviewed date:09/28/2024 04:46:14 PM Interpretation: Performing Lab:[facility]gu[facility], [address], [address], [place], Phone - [phone], Director - [facility] Notes/Report: Clinical Information:SRC:UR HCV Antibody-[id number] Reviewed date:09/28/2024 04:49:32 PM Interpretation: Performing Lab:[facility] Mcgu[facility] [address], [address], [place], Phone - [phone], Director - [facility] Notes/Report: Clinical Information:SRC:UR Hep C Virus Ab Non Reactive Non Reactive HCV antibody alone does not differentiate between previously resolved infection and active infection. Equivocal and Reactive HCV antibody results should be followed up with an HCV RNA test to support the diagnosis of active HCV infection. M genitalium NARINDER, Urine-1800 25 Reviewed date:09/28/2024 04:49:27 PM Interpretation: Performing Lab:[facility] Mcgu[facility] [address], [address], [place], Phone - [phone], Director - [facility] Notes/Report: Clinical Information:SRC:UR Mycoplasma genitalium NARINDER Negative Negative HIV Ab/p24 Ag with Reflex-08 3935 Reviewed date:09/28/2024 04:49:38 PM Interpretation: Performing Lab:[facility]annie Mcguire [address], [address], [place], Phone - [phone], Director - [facility] Notes/Report: Clinical Information:SRC:UR HIV Ab/p24 Ag Screen Non Reactive Non Reactive HIV-1/HIV-2 antibodies and HIV-1 p24 antigen were NOT detected. There is no laboratory evidence of HIV infection. HIV Negative HBsAg Screen-[id number] Reviewed date:09/28/2024 04:49:50 PM Interpretation: Performing Lab:[facility], [address], [address], [place], Phone - [phone], Director - [facility] Notes/Report: Clinical Information:SRC:UR HBsAg Screen Negative Negative PDF Report Reviewed date:09/26/2024 06:29:03 PM Interpretation: Performing Lab:[facility] [place], [address], [address], [place], Phone - [phone], Director - [facility] Notes/Report: Clinical Information:[id number] LMP / Prev Treat...[id number]=[id number] Dates / Results....09/01/2023 nil neg hpv No. of containers..01 ThinPrep Vial Reason For Referral No Information Medications Medication [...] test positive, high risk on vaginal specimen (059641898920448) Cervical high risk human papillomavirus (HPV) DNA test positive (R87.810) Active confirmed Problem Mild cervical dysplasia (646846737) Mild cervical dysplasia (N87.0) Active confirmed Problem Moderate cervical dysplasia (315695472) Moderate cervical dysplasia (N87.1) Active confirmed Problem Major depression, single episode (65981849) Major depressive disorder, single episode, unspecified (F32.9) Active confirmed Problem Anxiety disorder (264395461) Anxiety disorder, unspecified (F41.9) Active confirmed Problem Systemic lupus erythematosus (51953953) Systemic lupus erythematosus, unspecified (M32.9) Active confirmed Problem Fibromyalgia (869072597) Fibromyalgia (M79.7) Active confirmed Problem Abnormal vaginal bleeding (941950339) Other specified abnormal uterine and vaginal bleeding (N93.8) Active confirmed Problem Abnormal uterine bleeding (41381635061288) Abnormal uterine and vaginal bleeding, unspecified (N93.9) Active confirmed Problem Sexual dysfunction (01977042) Sexual dysfunction, unspecified (R37) Active confirmed Problem History of dysplasia of cervix (585757578) Personal history of cervical dysplasia (Z87.410) Active confirmed Vital Signs Temperature 97.5 degrees Fahrenheit 09/24/2024 Blood pressure diastolic 66 mm Hg 09/24/2024 Height 65 in 09/24/2024 Blood pressure systolic 122 mm Hg 09/24/2024 Weight 194 lbs 09/24/2024 BMI 32.28 kg/m2 09/24/2024 Encounters Encounter Location Date Provider Diagnosis [address] [place] [address] 09/24/2024 Jania Sepulveda Encounter for screening mammogram [...] Test Name Order Date Urinalysis 04/28/2018 CYTOLOGY (PRODUCTION UNDERWRITER) 07/26/2022 CYTOLOGY (PRODUCTION UNDERWRITER) 08/10/2017 THIN PREP,HPV,FAISAL IF HPV+ (>29YR)(DIAG) 04/28/2018 THIN PREP,HPV,FAISAL IF HPV+ (>29YR)(SCRN) 07/13/2017 TEST, (IN HOUSE) 08/10/2017 MM Digital Mammo Screening 09/24/2024 Alkaline Phosphatase-500589 09/24/2024 HBsAg Screen-367922 09/24/2024 HBsAg Screen-751779 09/01/2023 HIV Ab/p24 Ag with Reflex-940683 025 HIV Ab/p24 Ag with Reflex-861483 024 M genitalium NARINDER, Urine-053026 5 RPR Qn+TP Abs-[id number] 09/01/2023 HCV Antibody-805479 09/01/2023 HCV Antibody-918207 09/24/2024 Syphilis RPR w/reflex 09/24/2024 Next Appt Details Provider Name:Jania albarran, 09/30/2025 10:00:00 AM, [address], [address], [place], [address], Insurance Providers Payer Name Payer Address Payer Phone Subscriber Number Group Number Insured Name Patient Relationship to Insured Coverage Start Date Coverage End Date [facility] [address] [address] [place] [phone] [id number] BRETT RETANA Self - patient is the [...]
--- OUTSIDE RECORDS SUMMARY | 2025-02-27 10:49 | XMS_ITS | Clinical Summary ---
Author Organization [facility] Address [email or web address] [facility] [address] [place] [address] Phone Care Team Providers Care Dog Day Care Attendant Name Role Phone Marilin Wong MEDICAL TERRITORY MANAGER Unavailable Nicole Biswas NP Primary Care Provider [phone] Allergies No known active allergies Medications clonazePAM [...] Courtney Hill M.D., Director Clinical Immunology Laboratory [id number] Normal: Negative at 1:10 Anti-deering DNA Antibodies detected on Crithidia Luciliae Substrate [...] other rheumatic diseases or in drug-induced SLE. Avrg-fjbjkq-tefcdvqk DNA antibodies are usually detected in SLE [...] method is an immunoenzymatic assay manufactured by [employer] and performed on the [employer] DXI 800. Values obtained from different assay [...] method is an immunoenzymatic assay manufactured by [employer] and performed on the [employer] DXI 800. Values obtained from different assay [...] is also having a consultation with an p 3 armament/ordnance ima technician to review the abnormal thyroid ultrasound. 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 She has normal thyroid function. Through an automotive tire technician 28 minutes was spent in this visit of which 50% of the time was spent in direct conversation with the patient through the automotive tire technician going through the meaning of the multiple [...] method is an immunoenzymatic assay manufactured by [employer] and performed on the [employer] DXI 800. Values obtained from different assay [...] Final Comment: Performing Physician, Deep Mac M.D., [id number] Normal: Negative at 1:10 Anti-deering DNA Antibodies detected on Crithidia Luciliae Substrate [...] other rheumatic diseases or in drug-induced SLE. Byrj-ikdoxy-tierfdda DNA antibodies are usually detected in SLE [...] of this 28-minute visit was spent in sywv-wh-haky conversation going over the natural history and treatment of both of fibromyalgia and systemic lupus, going over her medication list, and the risks and benefits of continued use of current treatment. This was all done through a manager generation. All questions were answered. No visits with [...] of this 28-minute visit was spent in dyvq-re-eshf conversation with the patient going over the [...] of lupus was discussed with her through automotive tire technician. I think she is doing reasonably well [...] this 28 minute visit was spent in qiyw-aw-rast conversation with the patient going over the risks and benefits of her medication and the natural history of systemic lupus. Assessment & Plan (03/23/2017 3:27 PM EST): Patient is doing better when she has a long time. She still feels fatigued in her muscles ache and I did go over in great detail with her and her without of the survey questionnaire designer how to do quadriceps strengthening exercises twice [...] get some help by consulting dermatology in [place] whom she has gone to before with [...] Courtney Hill M.D., Director Clinical Immunology Laboratory [id number] Normal: Negative at 1:10 Anti-deering DNA Antibodies detected on Crithidia Luciliae Substrate [...] other rheumatic diseases or in drug-induced SLE. Ypkm-vpmgqq-riykoxak DNA antibodies are usually detected in SLE [...] of this 28-minute visit was spent in jdot-tq-audf conversation with the patient, her boyfriend, and automotive tire technician going over her back pain and had [...] this 29 minute visit was spent in muma-nl-kbzj conversation with the patient, her significant other [...] which is being evaluated again by the publishing director and both he and I have requested [...] 2 - PCV) 02/14/2004 PAP SMEAR 2006 INFLUENZA VACCINE (#1) 2024 , 02/18/2020 COVID-19 VACCINE (2024-2 6 season) 2024 03/21/2021, 08/16/2020, 07/26/2020 MAMMOGRAM 2025 Adult Td,Tdap Booster 05/11/2033 05/11/2023 HEPATITIS A [...] file Insurance CARE MEDICARE REPLACEMENT [place] [id number] [place] [address] ONE CARE MEDICARE REPLACEMENT MEDICARE REPLACEMENT MEDICARE REPLACEMENT MEDICARE REPLACEMENT [facility] ONE CARE MEDICARE REPLACEMENT [facility] ONE CARE MEDICARE REPLACEMENT [facility] ONE CARE MEDICARE REPLACEMENT Care Teams Dog Day Care Attendant Relationship Specialty Start Date End Date Nicole Biswas NP [address] [place] [address] [address] [place] [address] PCP - General Family Medicine 01/12/19 Marilin Wong FNP [address] [place] [address] Family Medicine 03/22/18 Additional Source Comments The information contained in this document represents components of the legal health record. It is not the complete legal health record.[facility]
--- OUTSIDE RECORDS SUMMARY | 2025-02-27 10:49 | XMS_ITS | Encounter Summary ---
Author Organization [facility] Address [address] [facility] [address] [place] [address] Phone Care Team Providers Care Director Of Sustainability Programs Name Role Phone Marilin Wong BONDERIZER OPERATOR Unavailable [phone] Nicole Biswas PROCESS IMPROVEMENT CONSULTANT Primary Care Provider [phone] Encounter Details Date Type Department Care Team (Late st Contact Info) Description 03/17/2020 Ancillary Orders [facility],Outside Imaging [address] [place] [address] System, Provider Not In, [facility] [address] [address] Social History Tobacco Use Types Packs/Day Years [...] on filedocumented in this encounter Care Teams Director Of Sustainability Programs Relationship Specialty Start Date End Date Nicole Biswas NP [address] [place] [address] [address] [place] [address] PCP - General Family Medicine 01/12/19 Marilin Wong FNP [address] [place] [address] [email or web address] Family Medicine 03/22/18 documented as of this encounter Additional Source Comments The information contained in this document represents components of the legal health record. It is not the complete legal health record.[facility]
--- OUTSIDE RECORDS SUMMARY | 2025-02-27 10:49 | XMS_ITS | Clinical Summary ---
Author Organization [facility] Address [address] [facility] [address] [place] [address] Phone Care Team Providers Care Photographic Spotter Name Role Phone Deena Sam MD Primary [...] which is being evaluated again by the equipment coordinator and both he and I have [...] Courtney Hill M.D., Director Clinical Immunology Laboratory [id number] Normal: Negative at 1:10 Anti-wichita DNA Antibodies detected on Crithidia Luciliae Substrate [...] other rheumatic diseases or in drug-induced SLE. Ncid-ezootr-noqeeehj DNA antibodies are usually detected in SLE [...] Courtney Hill M.D., Director Clinical Immunology Laboratory [id number] Normal: Negative at 1:10 Anti-wichita DNA Antibodies detected on Crithidia Luciliae Substrate [...] other rheumatic diseases or in drug-induced SLE. Igxk-qlduyc-amthbpxx DNA antibodies are usually detected in SLE [...] 02/14/2004 Influenza Vaccine (#1) 2024 02/18/2020 Insurance [facility] ([id number]) [place] [phone] [facility] ([id number]) [place] [phone] Care Teams Photographic Spotter Relationship Specialty Start Date End Date Deena Sam MD [address] [place] [id number] PCP - General Internal Medicine 02/16/21
== END 2025-02-27 10:34 | disposition home or self-care (01) ==
LOC: HO.RHES 09:39
PROVIDERS: PCP Student in an Organized Health Care Education/Training Program; Visit Provider Internal Medicine Rheumatology
DX: M32.19 Other organ or system involvement in systemic lupus erythematosus (principal); M25.561 Pain in right knee; M25.562 Pain in left knee; G89.29 Other chronic pain; M67.88 Other specified disorders of synovium and tendon, other site; S46.819A Strain of other muscles, fascia and tendons at shoulder and upper arm level, unspecified arm, initial encounter
CPT/HCPCS: 99214; G2211

== ENCOUNTER 2025-02-27 09:39 | Outpatient (REF) | payer OTHER, SELFPAY ==
[2025-02-27 13:33] LABS: MANUAL DIFF FLAG NO
[2025-02-27 13:41] LABS: Hematocrit 41.7 % (37.0-47.0); Hemoglobin 13.2 g/dl (12.0-16.0); Imm Gran Abs Auto 0.02 X10*3/uL (0.00-0.03); Imm Gran Pct Auto 0.4 % (0.0-0.4); Lymphocytes Absolute Auto 2.2 X10*3/uL (1.2-4.9); Mean Corpuscular HGB Conc 31.7 g/dl (31.0-35.0); Mean Corpuscular Hemoglobin 26.7 pg (27.0-33.0); Mean Corpuscular Volume 84.4 fL (80.0-98.0); NRBC Abs Auto 0.000 X10*3/uL (0.0-0.012); NRBC Pct Auto 0.0 /100WBC (0.0-0.2); Platelet Count 240 X10*3/uL (160-400); Red Blood Count 4.94 X10*6/uL (4.20-5.50); White Blood Count 5.6 X10*3/uL (4.8-10.8)
[2025-02-27 14:04] LABS: Alanine Aminotransferase 15 U/L (0-31); Aspartate Amino Transferase 25 U/L (5-31); Estimated Glomerular Filt Rate > 60
== END 2025-02-27 09:40 | disposition home or self-care (01) ==
LOC: HO.HKASLDS 09:39
PROVIDERS: PCP Student in an Organized Health Care Education/Training Program; Visit Provider Internal Medicine Rheumatology
DX: M32.19 Other organ or system involvement in systemic lupus erythematosus (principal); M25.561 Pain in right knee; M25.562 Pain in left knee; S46.819A Strain of other muscles, fascia and tendons at shoulder and upper arm level, unspecified arm, initial encounter; M67.88 Other specified disorders of synovium and tendon, other site
CPT/HCPCS: 36415; 82565; 84450; 84460; 85025; 85652; 86140; 86160; 86225; 99212